=== PATIENT | male | born 1985 | race Caucasian/White ===

== ENCOUNTER 2017-08-23 10:09 | Inpatient (IN) | payer MEDICAID, OTHER ==
[~2017-08-23] VITALS: Ht 172.7 cm; Wt 72.3 kg
[2017-08-23] MEDS ORDERED: VANCOMYCIN 1 GM (PMX) 250 ML IVPB STA (11:23)
[2017-08-23] MEDS ORDERED: ACETAMINOPHEN 325 MG TAB PO STA (11:23)
[2017-08-23] MEDS ORDERED: PIPER-TAZO 3.375 GM IV (PMX) 50 ML IVPB STA (11:23)
[2017-08-23] MEDS ORDERED: SODIUM CHLORIDE 0.9% 1L BAG IV* STA (11:23)
[2017-08-23] MEDS ORDERED: CLINDAMYCIN 900 MG/D5W (PMX) 50 ML IVPB SCH (11:30)
[2017-08-23 12:00] LABS: BASOPHIL # 0.1 10^3/ul (0.0-0.1); BASOPHILS % 0.4 % (0.0-2.0); EOSINOPHILS # 0.1 10^3/ul (0.0-0.5); EOSINOPHILS % 0.5 % (0.0-7.0); HEMATOCRIT 49.1 % (42.0-52.0); HEMOGLOBIN 17.2 g/dl (14.0-18.0); LYMPHOCYTES % 5.4 % (15.0-51.0); MEAN CORPUSCULAR HEMOGLOBIN 32.2 pg (29.0-33.0); MEAN CORPUSCULAR VOLUME 91.9 fl (82.0-101.0); MEAN PLATELET VOLUME 9.8 fl (7.4-10.4); MONOCYTE # 1.2 10^3/ul (0.3-0.9); MONOCYTES % 6.5 % (0.0-11.0); NEUTROPHIL # 16.2 10^3/ul (1.6-7.5); NEUTROPHILS % 86.8 % (39.0-77.0); PLATELET COUNT 227 10^3/UL (140-415); RED BLOOD COUNT 5.34 10^6/ul (4.70-6.10); RED CELL DISTRIBUTION WIDTH 12.5 % (11.5-14.5); WHITE BLOOD COUNT 18.6 10^3/ul (4.8-10.8)
[2017-08-23] MEDS ORDERED: PIPER-TAZO 3.375 GM IV (PMX) 100 ML IVPB ONE (12:00)
[2017-08-23] MEDS ORDERED: morphine 4 MG/ML VIAL IV STA (12:01)
[2017-08-23] MEDS ORDERED: ONDANSETRON 4 MG INJ IV STA (12:01)
[2017-08-23 12:15] LABS: INR 1.03; PROTIME 13.5 Sec (12.2-14.2); PT RATIO 1.1
[2017-08-23 12:16] LABS: PARTIAL THROMBOPLASTIN TIME 31.6 Sec (25.0-35.0)
[2017-08-23 12:19] LABS: ALANINE AMINOTRANSFERASE 31 IU/L (13-69); ALBUMIN 4.6 g/dl (3.3-4.9); ALBUMIN/GLOBULIN RATIO 1.27; ALKALINE PHOSPHATASE 110 IU/L (42-121); ANION GAP 19 (8-16); ASPARTATE AMINO TRANSFERASE 25 IU/L (15-46); BLOOD UREA NITROGEN 19 mg/dl (7-20); CALCIUM 9.4 mg/dl (8.4-10.2); CARBON DIOXIDE 23 mmol/L (21-31); CHLORIDE 100 mmol/L (97-110); CREATININE 1.19 mg/dl (0.61-1.24); GLUCOSE 101 mg/dl (70-220); SODIUM 138 mmol/L (135-144); TOTAL PROTEIN 8.2 g/dl (6.1-8.1)
[2017-08-23 12:32] LABS: TROPONIN-I < 0.012 ng/ml (0.00-0.12)
--- NOTE | 2017-08-23 12:32 | RADRPT ---
PROCEDURE: XR Chest. CLINICAL INDICATION: Possible sepsis. TECHNIQUE: Single frontal chest x-ray. COMPARISON: None available. FINDINGS: The cardiomediastinal silhouette is unremarkable. No pneumothorax, pleural effusion or consolidation is seen. No acute osseous abnormality is noted. IMPRESSION: 1. No acute cardiopulmonary abnormality. RPTAT: HH .Hilaria Landis MD, Date Time Electronically viewed and signed by .Hilaria Landis MD, on 08/23/2017 12:32 .N/
--- NOTE | 2017-08-23 12:40 | RADRPT ---
PROCEDURE: XR Knee. CLINICAL INDICATION: Left knee pain. TECHNIQUE: Three views of the left knee are available for review. COMPARISON: None available FINDINGS: No acute fracture or dislocation is seen. No radiopaque foreign body is identified. Alignment is a natomic. No significant soft tissue swelling is noted. Small suprapatellar effusion is noted. IMPRESSION: 1. No acute fracture or dislocation. 2. Small suprapatellar effusion. RPTAT: HH .Hilaria Landis MD, Date Time Electronically viewed and signed by .Hilaria Landis MD, on 08/23/2017 12:40 .N/
[2017-08-23] MEDS ORDERED: ONDANSETRON 4 MG INJ IV PRN ×2 (13:00→15:00)
[2017-08-23] MEDS ORDERED: ACETAMINOPHEN 325 MG TAB PO PRN (13:00)
--- NOTE | 2017-08-23 13:02 | CONS ---
Date/Time of Note Date/Time of Note DATE: 08/23/17 TIME: 13:01 Assessment/Plan Assessment/Plan Additional Assessment/Plan [facility] INPATIENT CONSULTATION NOTE DATE OF SERVICE: 08/23/2017 PLACE OF SERVICE: [facility], emergency department ASSESSMENT AND PLAN: A very-pleasant and otherwise seemingly healthy 32-year- old gentleman presenting with moderate to severe cellulitis around his left knee. Patient's clinical picture as well as his LRINEC score of 5 indicates severe cellulitis and low probability for necrotizing fasciitis. His ultrasound shows soft tissue stranding and no obvious abscess (final report pending). We are awaiting his CT scan of the left knee area. I recommended hospitalization as well as aggressive medical management, and will make further decisions regarding operative assessment of the lesion after CT scan is done and after a few hours of above management. Explained to the patient in detail and answered all questions. Patient (no family present in the room) appeared to understand and agreed with plans. With above assessment, I've recommended the followin. CT scan of left knee 2. Admitted to the hospital 3. Agree with broad-spectrum antimicrobials 4. Careful monitoring of vital signs and I's and O's (potentially would need telemetry or ICU depending on clinical course of the next few hours) 5. Every 6 hours lactic acid checks for 4 checks 6. Demarcation of the cellulitis with date and time and repeat every shift for the next 2 days Thank you very much for having me involved in the care of this very pleasant patient and wonderful family. If you have any questions, please feel free to contact me at [phone]. Nature of presenting problem: High severity Please note that, given the multiple number of diagnoses or management options, the moderate amount and/or complexity of data needed to be reviewed, and I risk of complications and/or morbidity or mortality, this qualifies as high complexity type of decision-making. Disclaimers: 1. Inadvertent spelling and grammatical errors are likely due to electronic health record (EHR)/dictation software used and do not reflect on the quality of delivered patient care. 2. The electronic timestamp recorded on this note does not necessarily reflect the actual date and time of the visit or the service. 3. Portions of this note may have been created through electronic templates and computer algorithms that might bring in information either from the system or from other physicians and providers. Please note that such information may or may not contain errors, the occurrence of which are outside of my control. In general (but not always) this happens either in the beginning or at the end of the note. The portion of the note that I have created are generally done in 1 continuous block of text, flanked at the beginning and at the end by " ", and entered into one field in the EHR. 4. There may be other unanticipated errors in the note that are outside of my control. I can only attest to the portions of the note that I have created. Updated clinical summary: A very-pleasant and otherwise seemingly healthy 32-year-old gentleman presenting with moderate to severe cellulitis around his left knee. Comorbidities: 1. Cocaine use in the past. Quit several years ago 2. Status post laparoscopic appendectomy [facility] [address]. Alcaraz CONSULTATION REQUESTED BY: Kalyan Rowe MD Dear Dr. Rowe, Thank you very much for the opportunity to participate in the care of this very pleasant gentleman and his wonderful family. HISTORY OF PRESENT ILLNESS: The patient is a very pleasant otherwise fairly healthy 32-year-old gentleman who presented to the emergency department at [facility] on 08/23/2017 with 3-4 day history of aggressively worsening redness and pain around his left knee. 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 His symptoms have worsened to a point where he started having shakes and chills and came into the hospital for evaluation. His initial workup demonstrated elevated white blood cell count of 18 and overall LRINEC score of 5. I promptly evaluated him in the emergency department. I found him to be in mild distress and having shakes and write orders. He had some erythema of the skin over his chest region. He reported not noticing the erythema on his chest prior to coming to the hospital. He reported no numbness of his left toes and he was able to move his toes and leg with very minimal discomfort of the skin overlying the left knee region. The joint itself did not seem to be bothering him. He did not complain of any shortness of breath or chest pain and no nausea or vomiting, changes in appetite , blood in the stool or urine or other major complaints. No prior similar issues in the past. No issues with autoimmune disease or immunosuppressant use. His cocaine use was several years ago and the has not use any illicit drugs since. ALLERGIES: NO KNOWN DRUG ALLERGIES MEDICATIONS Documented in the electronic records and reviewed by me. Please see the electronic records for details, as well as details for inpatient medications which were also reviewed by me. SOCIAL HISTORY: The patient lives with family.-Tob; occasional binge drinking over the weekend;-IVDU (above-mentioned cocaine use in the past) FAMILY HISTORY: There are no significant medical, surgical or oncologic issues in the family as reported by the patient or reflected in the chart. REVIEW OF SYSTEMS: Other than mentioned above, there were no other pertinent positives or pertinent negatives in an otherwise complete 14 point review of systems. PHYSICAL EXAMINATION GENERAL: The patient appears to be a very pleasant gentleman of descent lying in bed, appearing stated age, and otherwise in no acute distress. BMI: 21.8 VITAL SIGNS: AVSS (please also see auto important data if available as well as the electronic records) HEENT: Normocephalic and atraumatic. Extraocular muscles and hearing are grossly intact bilaterally and symmetrically. Sclerae are nonicteric. Oral cavity is clear; oral mucosa appear to be pink and moist. Dentition: fair. NECK: Supple. There is no lymphadenopathy or JVD. There is no submental, submandibular or supraclavicular lymphadenopathy. CHEST: Rises symmetrically with each breath; patient is breathing comfortably. There are no audible wheezes, rales or rhonchi on the gross exam. HEART: Pulse is regular and palpable on the right wrist. Capillary refill is normal. Carotid pulses are palpable bilaterally and symmetrically in the neck. EXTREMITIES: Skin overlying the left knee area is significantly erythematous and there is calor to touch. Small 3-4 cm in diameter area of skin right below the patella region is slightly more demarcated and pale in appearance (very minimally) compared to the rest of the skin. The skin below the knee is normal. The skin overlying the thigh regions is slightly hyperemic with almost a rash to it which appears to be slightly blanching to touch and petechial in nature without any raised nature to it. Calf compartments as well as the thigh compartments are all soft and nontender. Patient sensation in the lower extremity is normal. Otherwise normal exam and lower extremities contain no pitting edema around the ankles bilaterally and symmetrically. ABDOMEN: Abdomen is soft, nontender and nondistended. No evidence of ascites, organomegaly, caput medusae, engorged subcutaneous veins, or other abnormalities. There are no peritoneal signs or guarding. SKIN: Appears to be pink and feels warm to touch. NEUROLOGIC: Awake, alert, and follows commands appropriately. LABORATORY DATA: See below IMAGING: See electronic chart. Please note that I've personally reviewed all pertinent available images and I agree in general with their overall reported findings. Consultation Date/Type/Reason Admit Date/Time Social History Smoking Status: Current some day smoker Exam/Review of Systems Vital Signs Vitals Vital Signs Date Time Temp Pulse Resp B/P Pulse Ox O2 Delivery O2 Flow Rate FiO2 08/23/17 12:06 Nasal Cannula 08/23/17 12:06 100.3 108 30 117/80 100 Results Result Diagram: 08/23/17 1140 08/23/17 1140 Results 24 hrs Laboratory Tests Test 08/23/17 11:40 08/23/17 11:41 White Blood Count 18.6 H Red Blood Count 5.34 Hemoglobin 17.2 Hematocrit 49.1 Mean Corpuscular Volume 91.9 Mean Corpuscular Hemoglobin 32.2 Mean Corpuscular Hemoglobin Concent 35.0 Red Cell Distribution Width 12.5 Platelet Count 227 Mean Platelet Volume 9.8 Neutrophils % 86.8 H Lymphocytes % 5.4 L Monocytes % 6.5 Eosinophils % 0.5 Basophils % 0.4 Nucleated Red Blood Cells % 0.0 Neutrophils # 16.2 H Lymphocytes # 1.0 Monocytes # 1.2 H Eosinophils # 0.1 Basophils # 0.1 Nucleated Red Blood Cells # 0.0 Prothrombin Time 13.5 Prothrombin Time Ratio 1.1 INR International Normalized Ratio 1.03 Activated Partial Thromboplast Time 31.6 Sodium Level 138 Potassium Level 4.0 Chloride Level 100 Carbon Dioxide Level 23 Anion Gap 19 H Blood Urea Nitrogen 19 Creatinine 1.19 Glucose Level 101 Lactic Acid Level 3.4 *H Calcium Level 9.4 Total Bilirubin 3.0 H Direct Bilirubin 0.00 Indirect Bilirubin 3.0 H Aspartate Amino Transf (AST/SGOT) 25 Alanine Aminotransferase (ALT/SGPT) 31 Alkaline Phosphatase 110 Troponin I < 0.012 Total Protein 8.2 H Albumin 4.6 Globulin 3.60 H Albumin/Globulin Ratio 1.27 C-Reactive Protein 22.1 H LIANG FRANCIS M.D. Aug 23, 2017 13:02
--- NOTE | 2017-08-23 13:03 | RADRPT ---
PROCEDURE: CT of the left knee CLINICAL INDICATION: Left knee pain and swelling TECHNIQUE: Axial images through the left knee without IV contrast. Coronal and sagittal reformat s. Images were interpreted at an independent PACS workstation. CTDI 3.23 mGy DLP 13 2.55 mGy-cm One or more of the following dose reduction techniques were used: Automated exposure control Adjustment of the mA and / or kV according to patient size Use of iterative reconstruction technique. COMPARISON: Radiographs of the left knee performed same day FINDINGS: There is no CT evidence of acute fracture. Joint spaces are preserved. Alignment appears normal. Bon e mineralization is normal. There is moderate subcutaneous soft tissue swelling anteriorly over the patella extending medially a nd laterally throughout the knee. There is no discrete drainable fluid collection. There is no soft tissue gas. The extensor mechanism is intact. Limited intra-articular evaluation is grossly unremarkable on CT. There is physiologic joint fluid. IMPRESSION: 1. Moderate nonspecific anterior subcutaneous soft tissue swelling, query cellulitis. 2. No CT evidence of acute fracture. 3. Physiologic joint fluid. RPTAT: UU .Edd Dominguez MD, MD Date Time Electronically viewed and signed by .Edd Dominguez MD, MD on 08/23/2017 13:03 ./
--- NOTE | 2017-08-23 13:17 | RADRPT ---
PROCEDURE: Left knee ultrasound CLINICAL INDICATION: Cellulitis. Evaluate for abscess. TECHNIQUE: Real time mayo-scale ultrasound imaging of the left knee. COMPARISON: None. FINDINGS: No large discrete fluid collection is identified along the medial aspect of the left knee. Diffuse s ubcutaneous soft tissue edema/cellulitis is noted and there are several areas of more focal edema. E raymond abscess is considered unlikely, however, cannot be entirely excluded. Correlation with CT or MR I is recommended for further evaluation. IMPRESSION: Diffuse subcutaneous edema/cellulitis throughout the visualized portion of the left knee medially. Q uestionable areas of focal edema versus early abscess are suboptimally evaluated but cannot be entir venkatesh excluded. Contrast-enhanced MRI or CT recommended for further evaluation. RPTAT:AAJJ Physician Meche Date Time Electronically viewed and signed by Physician Meche on 08/23/2017 13:17 PHOEBE/
--- NOTE | 2017-08-23 13:31 | ERD ---
ER Documentation Chief Complaint Chief Complaint LEFT KNEE PAIN, REDNESS. SWELLING FOR A WEEK HPI Patient is a 32-year-old male with no medical problems who presents with left- sided knee swelling. The symptoms started 3 days ago. 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 There is redness to the knee and up the left leg. He also has redness to his abdomen and chest. He is complaining of fevers and chills. The knee is very painful. He has had no treatment as of yet. This has worsened over the past 3 days. ROS All systems reviewed and are negative except as per history of present illness. Allergies Allergies: Coded Allergies: No Known Allergy (Unverified , 11/03/11) PMhx/Soc Medical and Surgical Hx: pt denies Medical Hx History of Surgery: Yes (APPENDECTOMY) Anesthesia Reaction: No Hx Neurological Disorder: No Hx Respiratory Disorders: No Hx Cardiac Disorders: No Hx Psychiatric Problems: No Hx Miscellaneous Medical Probl: No Hx Alcohol Use: Yes (FROMER ETOH USE) Hx Substance Use: Yes (FORMER METH, HEROINE) Hx Tobacco Use: Yes Smoking Status: Current some day smoker FmHx Family History: No diabetes Physical Exam Vitals Vital Signs Date Time Temp Pulse Resp B/P Pulse Ox O2 Delivery O2 Flow Rate FiO2 08/23/17 12:06 Nasal Cannula 08/23/17 12:06 100.3 108 30 117/80 100 Room Air 08/23/17 10:11 100.6 115 22 107/69 97 Physical Exam Const: Moderate distress with Reiger's Head: Atraumatic Eyes: Normal Conjunctiva ENT: Normal External Ears, Nose and Mouth. Neck: Full range of motion..~ No meningismus. Resp: Clear to auscultation bilaterally Cardio: Tachycardic rate without murmur Abd: Soft, non tender, non distended. Normal bowel sounds Skin: Significant erythema to the left knee radiating up the left leg and into the abdomen, there is swelling and significant tenderness to palpation, there is no obvious abscess at this time, there is discoloration of the anterior portion of the patella approximately 2 x 2 cm Back: No midline or flank tenderness Ext: No cyanosis, or edema Neur: Awake and alert Psych: Normal Mood and Affect Result Diagram: 08/23/17 1140 08/23/17 1140 Results 24 hrs Laboratory Tests Test 08/23/17 11:40 08/23/17 11:41 White Blood Count 18.610^3/ul Red Blood Count 5.3410^6/ul Hemoglobin 17.2g/dl Hematocrit 49.1% Mean Corpuscular Volume 91.9fl Mean Corpuscular Hemoglobin 32.2pg Mean Corpuscular Hemoglobin Concent 35.0g/dl Red Cell Distribution Width 12.5% Platelet Count 13211^3/UL Mean Platelet Volume 9.8fl Neutrophils % 86.8% Lymphocytes % 5.4% Monocytes % 6.5% Eosinophils % 0.5% Basophils % 0.4% Nucleated Red Blood Cells % 0.0/100WBC Neutrophils # 16.210^3/ul Lymphocytes # 1.010^3/ul Monocytes # 1.210^3/ul Eosinophils # 0.110^3/ul Basophils # 0.110^3/ul Nucleated Red Blood Cells # 0.010^3/ul Prothrombin Time 13.5Sec Prothrombin Time Ratio 1.1 INR International Normalized Ratio 1.03 Activated Partial Thromboplast Time 31.6Sec Sodium Level 138mmol/L Potassium Level 4.0mmol/L Chloride Level 100mmol/L Carbon Dioxide Level 23mmol/L Anion Gap 19 Blood Urea Nitrogen 19mg/dl Creatinine 1.19mg/dl Glucose Level 101mg/dl Lactic Acid Level 3.4mmol/L Calcium Level 9.4mg/dl Total Bilirubin 3.0mg/dl Direct Bilirubin 0.00mg/dl Indirect Bilirubin 3.0mg/dl Aspartate Amino Transf (AST/SGOT) 25IU/L Alanine Aminotransferase (ALT/SGPT) 31IU/L Alkaline Phosphatase 110IU/L Troponin I < 0.012ng/ml Total Protein 8.2g/dl Albumin 4.6g/dl Globulin 3.60g/dl Albumin/Globulin Ratio 1.27 C-Reactive Protein 22.1mg/dl Current Medications Medications (Trade) Dose Ordered Sig/Quan Route PRN Reason Start Time Stop Time Status Last Admin Dose Admin Sodium Chloride (NS) 2,180 ml BOLUS OVER 2 HOURS STAT IV* 08/23/17 11:23 08/23/17 11:24 DC 08/23/17 11:58 Acetaminophen 650 mg 650 mg ONCE STAT PO 08/23/17 11:23 08/23/17 11:24 DC 08/23/17 11:58 Vancomycin HCl 250 ml @ 125 mls/hr ONCE STAT IVPB 08/23/17 11:23 08/23/17 13:22 DC Piperacillin Sod/ Tazobactam Sod 50 ml @ 100 mls/hr ONCE STAT IVPB 08/23/17 11:23 08/23/17 11:42 DC Clindamycin HCl/ Dextrose 50 ml @ 50 mls/hr ONCE IVPB 08/23/17 11:30 08/23/17 12:29 DC 08/23/17 12:04 Piperacillin Sod/ Tazobactam Sod (Zosyn 3.375gm/ 100 ml (Pmx)) 100 ml @ 200 mls/hr ONCE ONCE IVPB 08/23/17 12:00 08/23/17 12:29 DC 08/23/17 13:01 Morphine Sulfate (morphine) 4 mg ONCE STAT IV 08/23/17 12:01 08/23/17 12:02 DC 08/23/17 12:20 Ondansetron HCl (Zofran Inj) 4 mg ONCE STAT IV 08/23/17 12:01 08/23/17 12:02 DC 08/23/17 12:20 Ondansetron HCl (Zofran Inj) 4 mg ER BRIDGE PRN IV NAUSEA AND/OR VOMITING 08/23/17 13:00 08/24/17 12:59 Acetaminophen (Tylenol Tab) 650 mg ER BRIDGE PRN PO MILD PAIN/FEVER 08/23/17 13:00 08/24/17 12:59 Procedures/MDM EKG read by me: Rate/Rhythm: Sinus tachycardia Intervals: Normal Impression: Sinus tachycardia without ischemia PROCEDURE: CT of the left knee CLINICAL INDICATION: Left knee pain and swelling TECHNIQUE: Axial images through the left knee without IV contrast. Coronal and sagittal reformats. Images were interpreted at an independent PACS workstation. CTDI 3.23 mGy DLP 13 2.55 mGy-cm One or more of the following dose reduction techniques were used: Automated exposure control Adjustment of the mA and / or kV according to patient size Use of iterative reconstruction technique. COMPARISON: Radiographs of the left knee performed same day FINDINGS: There is no CT evidence of acute fracture. Joint spaces are preserved. Alignment appears normal. Bone mineralization is normal. There is moderate subcutaneous soft tissue swelling anteriorly over the patella extending medially and laterally throughout the knee. There is no discrete drainable fluid collection. There is no soft tissue gas. The extensor mechanism is intact. Limited intra-articular evaluation is grossly unremarkable on CT. There is physiologic joint fluid. IMPRESSION: 1. Moderate nonspecific anterior subcutaneous soft tissue swelling, query cellulitis. 2. No CT evidence of acute fracture. 3. Physiologic joint fluid. RPTAT: UU .Edd Dominguez MD, MD Date Time Electronically viewed and signed by .Edd Dominguez MD, on 08/23/2017 13: 03 PROCEDURE: Left knee ultrasound CLINICAL INDICATION: Cellulitis. Evaluate for abscess. TECHNIQUE: Real time mayo-scale ultrasound imaging of the left knee. COMPARISON: None. FINDINGS: No large discrete fluid collection is identified along the medial aspect of the left knee. Diffuse subcutaneous soft tissue edema/cellulitis is noted and there are several areas of more focal edema. Early abscess is considered unlikely, however, cannot be entirely excluded. Correlation with CT or MRI is recommended for further evaluation. IMPRESSION: Diffuse subcutaneous edema/cellulitis throughout the visualized portion of the left knee medially. Questionable areas of focal edema versus early abscess are suboptimally evaluated but cannot be entirely excluded. Contrast-enhanced MRI or CT recommended for further evaluation. RPTAT:AAJJ Physician Meche Date Time Electronically viewed and signed by Physician Meche on 08/23/2017 13:17 Left knee x-ray and chest x-ray negative per radiology. Admit MDM: Patient's infectious symptoms have not stabilized and the patient is at risk of rapid decompensation. The patient will be admitted for careful hydration, antibiotic therapy, and infectious source control. Severe Sepsis criteria: Infectious source: Cellulitis End organ damage indicated by: Lactate greater than 2 Sepsis Management: Time of recognition of sepsis: Upon arrival Within 3 hours of recognition: Blood cultures x 2 before broad-spectrum antibiotics: Yes 30 ml/kg NS bolus Completed Initial lactate 3.4 Repeat lactate pending Time of recognition of septic shock: No septic shock Septic Shock Assessment: Any lactic acid > 4.0 No Persistent hypotension (SBP < 90 or 40 mmHg drop, MAP < 65) despite 30 mL/kg IV fluid bolus No Volume Re-assessment for Septic Shock (post 30 ml/kg bolus): No septic shock at this time Persistent Hypotension Treatment: Comfort care No Central line Not Required Vasopressor started Not required I considered further perfusion assessment with CVP measurement, SCVO2, bedside ultrasound volume assessment, passive leg raise, trial of further fluid bolus. And proceeded with 30 ml/kg fluid bolus of NSS, broad spectrum antibiotics, and admission. I also spoke with Dr. Lynn from general surgery who came to the bedside to evaluate for possible necrotizing fasciitis. He does not think the patient has necrotizing fasciitis at this time he just thinks it is a bad cellulitis. The patient's LRINEC score is 5. The patient was given vancomycin , Zosyn, and clindamycin for significant soft tissue infection. Accepting Care Team Current data and ongoing care discussed. Admitting Physician: Dr. Dowell from the panel team for admission to a telemetry bed Community Service Officer(s): Dr. Lynn the surgeon on-call Outstanding Data: Culture results and repeat lactic acid Critical Care: Critical care time 35 minutes excluding all billable procedures Emergent fluid management while maintaining close respiratory support. Provision of immediate and broad-spectrum antibiotic therapy. Simultaneous assessment for possible sources in order to direct targeted therapy. Consideration for invasive and chemical support to prevent cardiopulmonary collapse. Departure Diagnosis: Primary Impression: Severe sepsis Additional Impression: Cellulitis Site of cellulitis: extremity Site of cellulitis of extremity: lower extremity Laterality: left Qualified Code: L03.116 - Cellulitis of left lower extremity Condition: Serious BEATRIS HOLLIDAY MD Aug 23, 2017 13:31
[2017-08-23] MEDS ORDERED: MAGNESIUM HYDROXIDE 30ML CUP PO PRN (15:00)
[2017-08-23] MEDS ORDERED: NA PHOSPHATE/BIPHOS 133 ML ENEMA PR PRN (15:00)
[2017-08-23] MEDS ORDERED: hydrALAzine 20 MG INJ IV PRN (15:00)
[2017-08-23] MEDS ORDERED: VANCOMYCIN IV PER PHARMACY XX SCH (15:00)
[2017-08-23] MEDS ORDERED: LORAZEPAM 0.5 MG TAB PO PRN (15:00)
[2017-08-23] MEDS ORDERED: NITROGLYCERIN (SL) 0.4 MG TAB SL PRN (15:00)
[2017-08-23] MEDS ORDERED: ALBUTEROL/IPRATROPIUM (NEB) 3 ML AMP HHN PRN (15:00)
[2017-08-23 15:03] VITALS: TEMP 98.7
[2017-08-23 15:20] VITALS: BP 94/53; PULSE 90; RESP 18
[2017-08-23 15:28] VITALS: PULSE 92
[2017-08-23] MEDS: morphine 2 MG INJ IV PRN ×2 (15:49→20:21)
[2017-08-23 15:59] VITALS: Ht 172.7 cm; Wt 72.3 kg
[2017-08-23 16:00] VITALS: PULSE 96
[2017-08-23 16:10] LABS: INR 1.15; PROTIME 14.7 Sec (12.2-14.2); PT RATIO 1.1
[2017-08-23 16:11] LABS: PARTIAL THROMBOPLASTIN TIME 36.8 Sec (25.0-35.0)
[2017-08-23] MEDS: SOD CHLORIDE 0.9% 1,000 ML IV SCH (16:13)
[2017-08-23] MEDS ORDERED: VANCOMYCIN 500MG/NS (PMX) 100 ML IVPB SCH (17:00)
[2017-08-23] MEDS: PIPER-TAZO 3.375 GM IV (PMX) 50 ML IVPB SCH (18:00)
--- NOTE | 2017-08-23 18:39 | CONS ---
DATE OF ADMISSION: 08/23/2017 DATE OF CONSULTATION: 08/23/2017 INFECTIOUS DISEASE CONSULTATION REASON FOR CONSULTATION: Antibiotic management. HISTORY OF PRESENT ILLNESS: Nick Cervantes is a 32-year-old male who comes in with left knee pain and redness and is being seen for antibiotic management. Past problems include: 1. Status post appendectomy. 2. Former ETOH abuser. 3. Former methamphetamine and heroin user. 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 There is redness to the knee and up the left leg. There is redness to his abdomen and ch est. He complains of fever and chills. The knee is painful and has worsened over the last 3 days. On admission, his white count was 18.6, H and H 17.2 and 49.1, platelet count 227,000. BUN and cre atinine 19/.19. The patient was started on vancomycin, Zosyn and clindamycin as well for the possi bility of necrotizing fasciitis. The patient was seen by Dr. Liang Francis. He has severe cellulit is but low probability for necrotizing fasciitis. His ultrasound shows soft tissue stranding. No o bvious abscess. We are awaiting CT scan of the left knee. The CT scan of the left knee is pending. He is on broad spectrum antibiotics and essentially will await the results of the pending studies. A lower extremity CT scan was done today and shows moderate nonspecific anterior subcutaneous soft tissue swelling, query cellulitis. No CT evidence of acute fracture. PAST MEDICAL HISTORY: Operations as outlined. FAMILY HISTORY: Noncontributory. SOCIAL HISTORY: As noted, he is an alcohol abuser and methamphetamine and heroin abuser. FAMILY HISTORY: Noncontributory. SOCIAL HISTORY: He does smoke every day, current every day smoker, does not currently drink or abus e drugs. ALLERGIES: NONE TO PENICILLIN, SULFA OR FOODS. MEDICATIONS: Per chart. REVIEW OF SYSTEMS: As per HPI. PHYSICAL EXAMINATION: GENERAL: The patient is in moderate distress. VITAL SIGNS: Temperature 100.6. SKIN: Without generalized rash. EXTREMITIES: He has significant erythema of the left knee radiating up the leg and into the abdomen with swelling and tenderness to palpation. NEUROLOGICAL: No obvious abscess. HEENT: Within normal limits. NECK: Supple. LYMPH NODES: None palpable. CHEST: Decreased breath sounds at the bases. HEART: Tachycardic without murmur or gallop. ABDOMEN: Soft, nontender, without organosplenomegaly or masses. EXTREMITIES: No cyanosis, clubbing or edema. There is swelling and tenderness to palpation a nd discoloration of the anterior portion of the left patella. RECTAL AND GENITAL: Deferred. NEUROLOGIC: No focal neurological abnormalities. LABORATORY DATA: On admission, his white count is 18.6, H and H of 17.2 and 49.1, platelet count 22 7,000. BUN and creatinine 19/1.19 and his random glucose is 101. IMPRESSION AND PLAN: Will await the MRI scan. I do not believe we are dealing with a necrotizing f asciitis. We will follow his lactic acid, continue him on current therapy. He has had blood cultur es x4. Urine cultures and feces cultures pending. I will dictate my findings to the hospitalist. Dictated By: SABRA FREEMAN MD, JD/REBEL Conf#: [id number] DID#: [id number] CC: LIANG FRANCIS MD;*EndCC*
[2017-08-23 19:22] LABS: ADD UMIC NO; UR ASCORBIC ACID NEGATIVE (NEGATIVE); UR BILIRUBIN (Dip) NEGATIVE (NEGATIVE); UR BLOOD (Dip) NEGATIVE (NEGATIVE); UR CLARITY CLEAR (CLEAR); UR COLOR YELLOW (YELLOW); UR GLUCOSE (Dip) NEGATIVE (NEGATIVE); UR KETONES (Dip) TRACE mg/dL (NEGATIVE); UR LEUKOCYTE ESTERASE (Dip) NEGATIVE Leu/ul (NEGATIVE); UR NITRITE (Dip) NEGATIVE (NEGATIVE); UR SPECIFIC GRAVITY (Dip) 1.013 (1.003-1.030); UR TOTAL PROTEIN (Dip) NEGATIVE (NEGATIVE); UR UROBILINOGEN (Dip) 2+ mg/dL (NEGATIVE)
[2017-08-23 20:06] VITALS: PULSE 101
--- NOTE | 2017-08-23 20:09 | HP ---
DATE OF ADMISSION: 08/23/2017 CHIEF COMPLAINT: Left knee redness and pain and swelling. HISTORY OF PRESENT ILLNESS: A 32-year-old male with a past medical history of appendectomy, who has been having complaints of left knee swelling. He says he has also had redness symptoms as well, and also had some subjective fevers and chills at home. He had some mild shortness of breath symptoms as well. He took Motrin PM as well as Aspercreme [id number] and Icy Hot, which did not relieve the symptoms, and his symptoms were getting worse over the next 3 days. Denies any pus or drainage or bleeding from the redness site around his knee. He has noticed the redness has spread up to his upper leg now as well. He describes it is very tender to palpation. No diarrhea or constipation. No headaches or dizziness or loss of consciousness. When he came into the ER he was found with signs of severe sepsis secondary to cellulitis. He was seen by general surgery in the ER as well because there was concern for necrotizing fasciitis. However, the CT scan on this admission does not present any findings concerning for this, so he recommended just continuing wound care and antibiotics for now. PAST MEDICAL HISTORY: As stated above. ALLERGIES: NO KNOWN DRUG ALLERGIES. MEDICATIONS: Home medications, none regularly. PAST SURGICAL HISTORY: Appendectomy. SOCIAL HISTORY: Former IV drug abuse. He used cocaine last time 2 years ago. He smokes cigarettes socially. Denies any alcohol abuse. FAMILY HISTORY: Noncontributory. PHYSICAL EXAMINATION: VITAL SIGNS: Today, T-max 100.6, pulse 108 to 115, respirations 20 to 30, blood pressure 107 to 117 systolic over 69 to 80 diastolic, sating at 97 percent room air. GENERAL: Patient is lying in bed, in mild distress, but otherwise alert and awake. HEENT: Pupils equal, round, reactive to light. Extraocular muscles intact. NECK: Supple. No thyromegaly. LUNGS: Clear to auscultation bilaterally. CARDIOVASCULAR: Slightly tachycardic heart rate. No rubs or gallops. ABDOMEN: Soft, nontender, nondistended. Normal bowel sounds. No rebound or guarding. MUSCULOSKELETAL: On his left lower extremity there is significant erythema in the left knee radiating up to the left leg and into the abdomen, and it is also tender to palpation more around the left knee and also warm to touch in these areas. There is no sign of any abscess. There is a small discoloration in the anterior portion of the patella, but no pus or bleeding coming from this area. Otherwise, no lower extremity edema bilaterally. NEUROLOGIC: No focal deficits. LABORATORY DATA: WBC 18.6, the rest of the CBC is normal. His lactic acid is 3.4. His basic metabolic panel is normal. His total bili was 3.0, but direct was 0.0, indirect was 3.0. Rest of his LFTs are normal. Troponin is negative times 1. CRP is elevated at 22.1. A chest x-ray that was essentially negative. He had a knee x-ray of the left knee that showed no fractures or dislocations. There is small suprapatellar effusion, however. A left knee ultrasound that shows diffuse subcutaneous edema, cellulitis throughout the visualized portion of the left knee medially. Questionable areas of focal edema versus early abscess or suboptimally evaluated, but cannot be excluded, so a CT scan of the left knee was performed that showed moderate nonspecific anterior subcutaneous soft tissue swelling, likely cellulitis, but no evidence of any fractures, and there is physiologic joint fluid. Apparently, no signs of any abscess. Coags essentially normal. ASSESSMENT AND PLAN: A 32-year-old male coming in with left knee redness and cellulitis, and also severe sepsis with some mild fever, leukocytosis like acidosis. 1. Severe sepsis, again likely secondary to left knee cellulitis. Appears to have spread up to his left upper leg and abdomen area. Will admit the patient, put him on broad spectrum antibiotics, check TSH, A1c, lipid panel, infectious disease consult. Given his severe sepsis, will trend his lactic acid and put him on aggressive IV fluid hydration as well. Pain control medications as well. Consider PT consult. Check coags, trend lactic acid. 2. History of prior appendectomy. Monitor for now. Dictated By: Trevor Pablo MD /quentin/ruby /Document#: [id number]
[2017-08-23 20:25] VITALS: BP 104/67; RESP 18
[2017-08-23] MEDS: HEPARIN 5,000 UNIT/0.5 ML VIAL SC SCH (20:45)
[2017-08-23] MEDS: ACETAMINOPHEN 325 MG TAB PO PRN (22:21)
[2017-08-23] MEDS ORDERED: VANCOMYCIN 1 GM in NS 250 ML IVPB SCH (23:00)
[2017-08-24] VITALS (13 sets, daily range): BP systolic 93–106; BP diastolic 52–65; PULSE 85–112; RESP 16–19
[2017-08-24] MEDS: PIPER-TAZO 3.375 GM IV (PMX) 50 ML IVPB SCH ×2 (00:09→05:58)
[2017-08-24] MEDS: SOD CHLORIDE 0.9% 1,000 ML IV SCH ×3 (00:10→14:05)
[2017-08-24] MEDS: morphine 2 MG INJ IV PRN ×5 (00:23→20:19)
[2017-08-24] MEDS ORDERED: SOD CHLORIDE 0.9% 1,000 ML IV ONE (02:00)
[2017-08-24] MEDS: DIPHENHYDRAMINE 50 MG INJ IV PRN ×2 (02:33→10:04)
[2017-08-24] MEDS: VANCOMYCIN 1 GM in NS 250 ML IVPB SCH ×2 (03:05→15:09)
[2017-08-24 06:20] LABS: BASOPHIL # 0.1 10^3/ul (0.0-0.1); BASOPHILS % 0.4 % (0.0-2.0); EOSINOPHILS # 0.5 10^3/ul (0.0-0.5); EOSINOPHILS % 3.3 % (0.0-7.0); HEMATOCRIT 40.4 % (42.0-52.0); HEMOGLOBIN 14.1 g/dl (14.0-18.0); LYMPHOCYTES # 1.1 10^3/ul (0.8-2.9); LYMPHOCYTES % 7.7 % (15.0-51.0); MEAN CORPUSCULAR HEMOGLOBIN 32.3 pg (29.0-33.0); MEAN CORPUSCULAR HGB CONC 34.9 g/dl (32.0-37.0); MEAN CORPUSCULAR VOLUME 92.7 fl (82.0-101.0); MEAN PLATELET VOLUME 9.7 fl (7.4-10.4); MONOCYTES % 6.8 % (0.0-11.0); NEUTROPHILS % 81.3 % (39.0-77.0); PLATELET COUNT 224 10^3/UL (140-415); RED BLOOD COUNT 4.36 10^6/ul (4.70-6.10); RED CELL DISTRIBUTION WIDTH 12.7 % (11.5-14.5); WHITE BLOOD COUNT 14.7 10^3/ul (4.8-10.8)
[2017-08-24 06:43] LABS: CALCIUM 7.8 mg/dl (8.4-10.2); CREATININE 0.95 mg/dl (0.61-1.24); MAGNESIUM 2.1 mg/dl (1.7-2.5); PHOSPHORUS 3.1 mg/dl (2.5-4.9); POTASSIUM 3.7 mmol/L (3.5-5.1)
[2017-08-24] MEDS: HEPARIN 5,000 UNIT/0.5 ML VIAL SC SCH ×2 (08:26→21:18)
[2017-08-24] MEDS: HYDROCODONE/APAP (5/325) TAB PO PRN ×2 (08:27→16:58)
[2017-08-24 08:50] LABS: CHOL/HDL RATIO 5.6 RATIO
[2017-08-24] MEDS ORDERED: INFLUENZA VIRUS VACCINE 0.5 ML SYG IM* ONE (09:00)
[2017-08-24 09:21] LABS: THYROID STIMULATING HORMONE 1.64 MIU/L (0.465-4.680)
--- NOTE | 2017-08-24 10:51 | PN ---
Date/Time of Note Date/Time of Note DATE: 08/24/17 TIME: 10:49 Assessment/Plan VTE Prophylaxis VTE Prophylaxis Intervention: heparin Lines/Catheters IV [facility] Peripheral IV Urinary Cath still in place: No Assessment/Plan Chief Complaint/Hosp Course ASSESSMENT AND PLAN: A 32-year-old male coming in with left knee redness and cellulitis, and also severe sepsis with some mild fever, leukocytosis like acidosis. 1. Severe sepsis - again likely secondary to left knee cellulitis. Appears to have spread up to his left upper leg and abdomen area. Slowly improving -Continue broad spectrum antibiotics, check TSH, A1c, lipid panel, -Follow-up recommendations from infectious disease consult. - Given his severe sepsis, will trend his lactic acid and put him on aggressive IV fluid hydration as well -it is trending down now. Pain control medications as well. Consider PT consult. 2. History of prior appendectomy. Monitor for now. Problems: Subjective 24 Hr Interval Summary Free Text/Dictation patient had some mild itching symptoms after Zosyn given yesterday, relieved with Benadryl. Otherwise no acute events overnight. Exam/Review of Systems Vital Signs Vitals Vital Signs Date Time Temp Pulse Resp B/P Pulse Ox O2 Delivery O2 Flow Rate FiO2 08/24/17 08:32 Nasal Cannula 1.0 08/24/17 08:28 98.7 94 16 102/65 98 Intake and Output 08/23/17 08/23/17 08/24/17 15:00 23:00 07:00 Intake Total 320 ml 1700 ml Output Total 1800 ml Balance 320 ml -100 ml Exam GENERAL: Patient is lying in bed, alert and awake. HEENT: Pupils equal, round, reactive to light. Extraocular muscles intact. NECK: Supple. No thyromegaly. LUNGS: Clear to auscultation bilaterally. CARDIOVASCULAR: Slightly tachycardic heart rate. No rubs or gallops. ABDOMEN: Soft, nontender, nondistended. Normal bowel sounds. No rebound or guarding. MUSCULOSKELETAL: On his left lower extremity there is significant erythema in the left knee radiating up to the left leg and into the abdomen, and it is also tender to palpation more around the left knee and also warm to touch in these areas. There is no sign of any abscess. There is a small discoloration in the anterior portion of the patella, but no pus or bleeding coming from this area. Otherwise, no lower extremity edema bilaterally. NEUROLOGIC: No focal deficits. Results Result Diagram: 08/24/17 0555 08/24/17 0555 Results 24 hrs Laboratory Tests Test 08/23/17 11:40 08/23/17 11:41 08/23/17 14:30 08/23/17 15:40 White Blood Count 18.6 H Red Blood Count 5.34 Hemoglobin 17.2 Hematocrit 49.1 Mean Corpuscular Volume 91.9 Mean Corpuscular Hemoglobin 32.2 Mean Corpuscular Hemoglobin Concent 35.0 Red Cell Distribution Width 12.5 Platelet Count 227 Mean Platelet Volume 9.8 Neutrophils % 86.8 H Lymphocytes % 5.4 L Monocytes % 6.5 Eosinophils % 0.5 Basophils % 0.4 Nucleated Red Blood Cells % 0.0 Neutrophils # 16.2 H Lymphocytes # 1.0 Monocytes # 1.2 H Eosinophils # 0.1 Basophils # 0.1 Nucleated Red Blood Cells # 0.0 Prothrombin Time 13.5 14.7 H Prothrombin Time Ratio 1.1 1.1 INR International Normalized Ratio 1.03 1.15 Activated Partial Thromboplast Time 31.6 36.8 H Sodium Level 138 Potassium Level 4.0 Chloride Level 100 Carbon Dioxide Level 23 Anion Gap 19 H Blood Urea Nitrogen 19 Creatinine 1.19 Glucose Level 101 Lactic Acid Level 3.4 *H 1.0 Calcium Level 9.4 Total Bilirubin 3.0 H Direct Bilirubin 0.00 Indirect Bilirubin 3.0 H Aspartate Amino Transf (AST/SGOT) 25 Alanine Aminotransferase (ALT/SGPT) 31 Alkaline Phosphatase 110 Troponin I < 0.012 Total Protein 8.2 H Albumin 4.6 Globulin 3.60 H Albumin/Globulin Ratio 1.27 C-Reactive Protein 22.1 H Urine Color YELLOW Urine Clarity CLEAR Urine pH 7.0 Urine Specific [place] 1.013 Urine Ketones TRACE A Urine Nitrite NEGATIVE Urine Bilirubin NEGATIVE Urine Urobilinogen 2+ H Urine Leukocyte Esterase NEGATIVE Urine Hemoglobin NEGATIVE Urine Glucose NEGATIVE Urine Total Protein NEGATIVE Free Thyroxine 1.59 Test 08/23/17 19:14 08/24/17 00:25 08/24/17 05:54 08/24/17 05:55 Lactic Acid Level 1.2 0.8 0.9 White Blood Count 14.7 #H Red Blood Count 4.36 L Hemoglobin 14.1 Hematocrit 40.4 L Mean Corpuscular Volume 92.7 Mean Corpuscular Hemoglobin 32.3 Mean Corpuscular Hemoglobin Concent 34.9 Red Cell Distribution Width 12.7 Platelet Count 224 Mean Platelet Volume 9.7 Neutrophils % 81.3 H Lymphocytes % 7.7 L Monocytes % 6.8 Eosinophils % 3.3 Basophils % 0.4 Nucleated Red Blood Cells % 0.0 Neutrophils # 12.0 H Lymphocytes # 1.1 Monocytes # 1.0 H Eosinophils # 0.5 Basophils # 0.1 Nucleated Red Blood Cells # 0.0 Sodium Level 142 Potassium Level 3.7 Chloride Level 111 H Carbon Dioxide Level 25 Anion Gap 10 # Blood Urea Nitrogen 9 # Creatinine 0.95 Glucose Level 95 Hemoglobin A1c 4.9 Calcium Level 7.8 L Phosphorus Level 3.1 Magnesium Level 2.1 Triglycerides Level 87 Cholesterol Level 96 L LDL Cholesterol, Calculated 62 HDL Cholesterol 17 L Cholesterol/HDL Ratio 5.6 Thyroid Stimulating Hormone (TSH) 1.640 Medications Medications Current Medications Ondansetron HCl (Zofran Inj) 4 mg Q6H PRN IV NAUSEA AND/OR VOMITING; Start 07/30 at 15:00 Acetaminophen (Tylenol Tab) 650 mg Q6H PRN PO PAIN LEVEL 1-3 OR FEVER Last administered on 08/23/17 22:21; Admin Dose 650 MG; Start 08/23/17 at 15:00 Acetaminophen/ Hydrocodone Bitart ([place] (5/325)) 1 tab Q6H PRN PO MODERATE PAIN LEVEL 4-6 Last administered on 08/24/17 08:27; Admin Dose 1 TAB; Start 08/23/17 at 15:00 Morphine Sulfate (morphine) 2 mg Q4H PRN IV SEVERE PAIN LEVEL 7-10 Last administered on 08/24/17 05:58; Admin Dose 2 MG; Start 08/23/17 at 15:00 Docusate Sodium (Colace) 100 mg Q12H PRN PO CONSTIPATION; Start 08/23/17 at 15 :00 Magnesium Hydroxide (Milk Of Mag) 30 ml DAILY PRN PO CONSTIPATION; Start 08/23 at 15:00 Sodium Biphosphate/ Sodium Phosphate (Fleet Enema) 133 ml DAILY PRN SC CONSTIPATION; Start 08/23/17 at 15:00 Heparin Sodium (Porcine) (Heparin (5000 Units/0.5 ml)) 5,000 unit Q12 SC Last administered on 08/24/17 08:26; Admin Dose 5,000 UNIT; Start 08/23/17 at 21: 00 Lorazepam 0.5 mg 0.5 mg Q6H PRN PO ANXIETY; Start 08/23/17 at 15:00 Sodium Chloride 1,000 ml @ 125 mls/hr Q8H IV Last administered on 08/24/17 00:10; Admin Dose 100 MLS/HR; Start 08/23/17 at 14:33 Piperacillin Sod/ Tazobactam Sod (Zosyn 3.375gm/ 50 ml (Pmx)) 50 ml @ 100 mls/ hr Q6 IVPB Last administered on 08/24/17 05:58; Admin Dose 100 MLS/HR; Start 08/23/17 at 18:00 Vancomycin HCl (Vanco Iv Per Pharmacy) VANCOMYCIN PER PHARMACY NOTE XX ; Start 08/23/17 at 15:00 Hydralazine HCl (Apresoline) 10 mg Q6H PRN IV ELEVATED BLOOD PRESSURE; Start 08/23/17 at 15:00 Clonidine (Catapres) 0.1 mg Q6H PRN PO ELEVATED BLOOD PRESSURE; Start at 15:00 Nitroglycerin 1 tab 1 tab Q5M PRN SL ANGINA; Start 08/23/17 at 15:00 Vancomycin HCl (Vancocin) 250 ml @ 125 mls/hr Q12H IVPB Last administered on 08/24/17 03:05; Admin Dose 125 MLS/HR; Start 08/24/17 at 03:00 Diphenhydramine HCl (Benadryl) 25 mg Q6H PRN IV ITCHING Last administered on 10:04; Admin Dose 25 MG; Start 08/24/17 at 02:00 Miscellaneous Information (*Rx Drug Level Order Reminder*) VANCOMYCIN TROUGH ON ... ONCE ONCE XX ; Start 08/25/17 at 02:00; Stop 08/25/17 at 02:01 DIVINE ELLIOTT Aug 24, 2017 10:51
[2017-08-24] MEDS: CEFEPIME 2GM/50 ML (PMX) 50 ML IVPB SCH ×2 (13:08→21:09)
--- NOTE | 2017-08-24 14:19 | PN ---
Date/Time of Note Date/Time of Note DATE: 08/24/17 TIME: 14:18 Assessment/Plan Lines/Catheters IV Catheter Type (from Nrs): Peripheral IV Strong in Place (from Nrs): No Assessment/Plan Assessment/Plan [facility] Progress Note Date of Service: 08/24/2017 Location of Service: Fifth floor telemetry Today's Assessment & Plan: Overall stable and doing well. Left leg appears to be much improved. No evidence for necrotizing fasciitis. This appears to be severe cellulitis which seems to be responding to antimicrobial management and current cares. No indication for acute surgical intervention. Explained to patient (no family in the room) and answered all questions. Patient appeared to understand and agreed with plans. Previous assessments that applies today: A very-pleasant and otherwise seemingly healthy 32-year-old gentleman presenting with moderate to severe cellulitis around his left knee. Patient's clinical picture as well as his LRINEC score of 5 indicates severe cellulitis and low probability for necrotizing fasciitis. His ultrasound shows soft tissue stranding and no obvious abscess (final report pending). We are awaiting his CT scan of the left knee area. I recommended hospitalization as well as aggressive medical management, and will make further decisions regarding operative assessment of the lesion after CT scan was done. Fortunately, CT did not suggest further evidence for necrotizing fasciitis. With above assessment, I've recommended the followin. Continue current cares 2. Continue monitoring the borders of the erythema on the left knee 3. Increase activity 4. Continue intravenous antimicrobials and converted to orals perhaps in the next [address] Spain's excellent directions. Thank you very much for having me involved in the care of this very pleasant patient and wonderful family. If you have any questions, please feel free to contact me at [phone]. Nature of presenting problem: High severity Please note that, given the multiple number of diagnoses or management options, the moderate amount and/or complexity of data needed to be reviewed, and I risk of complications and/or morbidity or mortality, this qualifies as high complexity type of decision-making. Disclaimers: 1. Inadvertent spelling and grammatical errors are likely due to electronic health record (EHR)/dictation software used and do not reflect on the quality of delivered patient care. 2. The electronic timestamp recorded on this note does not necessarily reflect the actual date and time of the visit or the service. 3. Portions of this note may have been created through electronic templates and computer algorithms that might bring in information either from the system or from other physicians and providers. Please note that such information may or may not contain errors, the occurrence of which are outside of my control. In general (but not always) this happens either in the beginning or at the end of the note. The portion of the note that I have created are generally done in 1 continuous block of text, flanked at the beginning and at the end by " ", and entered into one field in the EHR. 4. There may be other unanticipated errors in the note that are outside of my control. I can only attest to the portions of the note that I have created. Updated clinical summary: A very-pleasant and otherwise seemingly healthy 32-year-old gentleman presenting with moderate to severe cellulitis around his left knee. Comorbidities: 1. Cocaine use in the past. Quit several years ago 2. Status post laparoscopic appendectomy [facility] [address]. Alcaraz Subjective: No major events or complaints; reports feeling much better with no further chills and overall improvement. + bowel activity; minimal activity Objective: Vitals: See below Exam: GENERAL: On exam, the patient was laying in bed and appeared to be comfortable and in no acute distress. ABDOMEN: Soft, nontender and nondistended. There are no peritoneal signs or guarding. EXTREMITIES: Skin overlying the left knee area is significantly less erythematous than yesterday and there is much less calor to touch. Small 3-4 cm in diameter area of skin right below the patella region is slightly more demarcated and pale in appearance (very minimally) compared to the rest of the skin, but not quite as striking as yesterday. The skin below the knee is normal. The skin overlying the thigh regions is less hyperemic than yesterday with almost complete resolution of the rash from yesterday. Calf compartments as well as the thigh compartments are all soft and nontender. Patient sensation in the lower extremity is normal. Otherwise normal exam and lower extremities contain no pitting edema around the ankles bilaterally and symmetrically. SKIN: Skin appears to be pink and feels warm to touch. NEUROLOGIC: Patient is awake, alert, and follows commands appropriately. Exam/Review of Systems Vital Signs Vitals Vital Signs Date Time Temp Pulse Resp B/P Pulse Ox O2 Delivery O2 Flow Rate FiO2 08/24/17 12:04 93 08/24/17 11:22 98.3 19 97/55 98 08/24/17 08:32 Nasal Cannula 1.0 Intake and Output 08/23/17 08/23/17 08/24/17 15:00 23:00 07:00 Intake Total 320 ml 1700 ml Output Total 1800 ml Balance 320 ml -100 ml Results Result Diagram: 08/24/17 0555 08/24/17 0555 LIANG FRANCIS M.D. Aug 24, 2017 14:19
--- NOTE | 2017-08-24 19:22 | RADRPT ---
PROCEDURE: US bilateral lower extremity veins. CLINICAL INDICATION: Bilateral leg pain and swelling. TECHNIQUE: Multiple longitudinal and transverse images of the bilateral lower extremity veins were obtained with mayo scale and color Doppler imaging. The common femoral vein, femoral vein, and popl iteal vein were evaluated. 2D grayscale measurements with compression sonography, color Doppler, and pulsed Doppler with augmentation. COMPARISON: No prior studies are available for comparison. FINDINGS: The bilateral common femoral, femoral and popliteal veins are normally compressible throughout. Col or flow demonstrates normal filling of the vessels. Normal waveforms are visualized and there is no rmal response to augmentation. IMPRESSION: 1. No evidence of deep vein thrombosis involving either lower extremity. RPTAT: QQ .Trent Keller MD, MD Date Time Electronically viewed and signed by .Trent Keller MD, on 08/24/2017 19:22 .R/
[2017-08-25] VITALS (13 sets, daily range): BP systolic 95–109; BP diastolic 50–69; PULSE 79–95; RESP 17–20
[2017-08-25] MEDS: morphine 2 MG INJ IV PRN ×5 (01:19→22:23)
[2017-08-25] MEDS: SOD CHLORIDE 0.9% 1,000 ML IV SCH ×4 (01:23→16:03)
[2017-08-25] MEDS: VANCOMYCIN 1 GM in NS 250 ML IVPB SCH ×3 (04:24→20:38)
[2017-08-25 06:39] LABS: BASOPHIL # 0.1 10^3/ul (0.0-0.1); BASOPHILS % 0.6 % (0.0-2.0); EOSINOPHILS # 0.6 10^3/ul (0.0-0.5); EOSINOPHILS % 3.7 % (0.0-7.0); HEMATOCRIT 41.2 % (42.0-52.0); HEMOGLOBIN 14.2 g/dl (14.0-18.0); LYMPHOCYTES # 1.6 10^3/ul (0.8-2.9); LYMPHOCYTES % 9.3 % (15.0-51.0); MEAN CORPUSCULAR HEMOGLOBIN 32.1 pg (29.0-33.0); MEAN CORPUSCULAR HGB CONC 34.5 g/dl (32.0-37.0); MONOCYTE # 1.4 10^3/ul (0.3-0.9); MONOCYTES % 7.9 % (0.0-11.0); NEUTROPHIL # 13.1 10^3/ul (1.6-7.5); NEUTROPHILS % 77.3 % (39.0-77.0); PLATELET COUNT 273 10^3/UL (140-415); RED BLOOD COUNT 4.43 10^6/ul (4.70-6.10); RED CELL DISTRIBUTION WIDTH 12.6 % (11.5-14.5)
[2017-08-25 07:29] LABS: CALCIUM 8.5 mg/dl (8.4-10.2); CREATININE 0.88 mg/dl (0.61-1.24); POTASSIUM 3.6 mmol/L (3.5-5.1)
[2017-08-25] MEDS: CEFEPIME 2GM/50 ML (PMX) 50 ML IVPB SCH ×2 (08:02→22:23)
[2017-08-25] MEDS: HEPARIN 5,000 UNIT/0.5 ML VIAL SC SCH ×2 (08:05→21:45)
[2017-08-25] MEDS ORDERED: VANCOMYCIN 1.25 GM in SOD CHLORIDE 0.9% 250 ML IVPB SCH (10:00)
--- NOTE | 2017-08-25 11:01 | PN ---
Date/Time of Note Date/Time of Note DATE: 08/25/17 TIME: 10:57 Assessment/Plan VTE Prophylaxis VTE Prophylaxis Intervention: heparin Lines/Catheters [facility] ([facility] Peripheral IV Urinary Cath still in place: No Assessment/Plan Chief Complaint/Hosp Course ASSESSMENT AND PLAN: A 32-year-old male coming in with left knee redness and cellulitis, and also severe sepsis with some mild fever, leukocytosis like acidosis. 1. Severe sepsis - again secondary to left knee cellulitis, which spread up to his left upper leg and abdomen area. Slowly improving overall, but still significant redness and warmth present -Continue broad spectrum antibiotics, Tylenol as needed pain fevers -Continue aggressive IV fluid hydration as well, lactic acid has trended down now -Continue pain control medications as well. - Consider PT consult. 2. History of prior appendectomy. Monitor for now. Problems: Subjective 24 Hr Interval Summary Free Text/Dictation Patient still has lower LE redness, slightly improved since yesterday but still prominent. No fevers overnight. Exam/Review of Systems Vital Signs Vitals Vital Signs Date Time Temp Pulse Resp B/P Pulse Ox O2 Delivery O2 Flow Rate FiO2 08/25/17 08:02 85 08/25/17 07:18 98.4 20 96/54 98 08/24/17 08:32 Nasal Cannula 1.0 Intake and Output 08/24/17 08/24/17 08/25/17 15:00 23:00 07:00 Intake Total 50 ml 1275 ml 1670 ml Output Total 700 ml 2950 ml 2575 ml Balance -650 ml -1675 ml -905 ml Exam GENERAL: Patient is lying in bed, alert and awake. HEENT: Pupils equal, round, reactive to light. Extraocular muscles intact. NECK: Supple. No thyromegaly. LUNGS: Clear to auscultation bilaterally. CARDIOVASCULAR: Slightly tachycardic heart rate. No rubs or gallops. ABDOMEN: Soft, nontender, nondistended. Normal bowel sounds. No rebound or guarding. MUSCULOSKELETAL: left lower extremity: Still significant erythema in the left knee radiating up to the left leg and into the abdomen, less tender to palpation now around the left knee, but still warm to touch in these areas. Small discoloration in the anterior portion of the patella, but no pus or bleeding coming from this area. Otherwise, no lower extremity edema bilaterally. NEUROLOGIC: No focal deficits. Results Result Diagram: 08/25/17 0548 08/25/17 0548 Results 24 hrs Laboratory Tests Test 08/24/17 11:55 08/24/17 17:49 08/25/17 02:02 08/25/17 05:48 Lactic Acid Level 0.9 0.9 Vancomycin Level Trough < 5.0 L White Blood Count 17.0 H Red Blood Count 4.43 L Hemoglobin 14.2 Hematocrit 41.2 L Mean Corpuscular Volume 93.0 Mean Corpuscular Hemoglobin 32.1 Mean Corpuscular Hemoglobin Concent 34.5 Red Cell Distribution Width 12.6 Platelet Count 273 # Mean Platelet Volume 10.0 Neutrophils % 77.3 H Lymphocytes % 9.3 L Monocytes % 7.9 Eosinophils % 3.7 Basophils % 0.6 Nucleated Red Blood Cells % 0.0 Neutrophils # 13.1 H Lymphocytes # 1.6 Monocytes # 1.4 H Eosinophils # 0.6 H Basophils # 0.1 Nucleated Red Blood Cells # 0.0 Sodium Level 139 Potassium Level 3.6 Chloride Level 105 Carbon Dioxide Level 27 Anion Gap 11 Blood Urea Nitrogen 7 Creatinine 0.88 Glucose Level 91 Calcium Level 8.5 Medications Medications Current Medications Ondansetron HCl (Zofran Inj) 4 mg Q6H PRN IV NAUSEA AND/OR VOMITING; Start 07/30 at 15:00 Acetaminophen (Tylenol Tab) 650 mg Q6H PRN PO PAIN LEVEL 1-3 OR FEVER Last administered on 08/23/17 22:21; Admin Dose 650 MG; Start 08/23/17 at 15:00 Acetaminophen/ Hydrocodone Bitart ([place] (5/325)) 1 tab Q6H PRN PO MODERATE PAIN LEVEL 4-6 Last administered on 08/24/17 16:58; Admin Dose 1 TAB; Start 08/23/17 at 15:00 Morphine Sulfate (morphine) 2 mg Q4H PRN IV SEVERE PAIN LEVEL 7-10 Last administered on 08/25/17 07:57; Admin Dose 2 MG; Start 08/23/17 at 15:00 Docusate Sodium (Colace) 100 mg Q12H PRN PO CONSTIPATION; Start 08/23/17 at 15 :00 Magnesium Hydroxide (Milk Of Mag) 30 ml DAILY PRN PO CONSTIPATION; Start 08/23 at 15:00 Sodium Biphosphate/ Sodium Phosphate (Fleet Enema) 133 ml DAILY PRN [place] CONSTIPATION; Start 08/23/17 at 15:00 Heparin Sodium (Porcine) (Heparin (5000 Units/0.5 ml)) 5,000 unit Q12 SC Last administered on 08/25/17 08:05; Admin Dose 5,000 UNIT; Start 08/23/17 at 21: 00 Lorazepam 0.5 mg 0.5 mg Q6H PRN PO ANXIETY; Start 08/23/17 at 15:00 Sodium Chloride (NS) 1,000 ml @ 125 mls/hr Q8H IV Last administered on 01:23; Admin Dose 125 MLS/HR; Start 08/23/17 at 14:33 Vancomycin HCl (Vanco Iv Per Pharmacy) VANCOMYCIN PER PHARMACY NOTE XX ; Start 08/23/17 at 15:00 Hydralazine HCl (Apresoline) 10 mg Q6H PRN IV ELEVATED BLOOD PRESSURE; Start 08/23/17 at 15:00 Clonidine (Catapres) 0.1 mg Q6H PRN PO ELEVATED BLOOD PRESSURE; Start at 15:00 Nitroglycerin (Nitroglycerin (Sl Tab) 0.4 Mg) 1 tab Q5M PRN SL ANGINA; Start 08/23/17 at 15:00 Diphenhydramine HCl 25 mg 25 mg Q6H PRN IV ITCHING Last administered on 10:04; Admin Dose 25 MG; Start 08/24/17 at 02:00 Cefepime HCl 50 ml @ 100 mls/hr Q12 IVPB Last administered on 08/25/17 08:02 ; Admin Dose 100 MLS/HR; Start 08/24/17 at 12:00 Vancomycin HCl (Vancocin) 250 ml @ 125 mls/hr Q8H IVPB ; Start 08/25/17 at 12: 00 Miscellaneous Information (*Rx Drug Level Order Reminder*) VANCO TROUGH @ 1, 100 ON ... ONCE ONCE XX ; Start 08/26/17 at 11:00; Stop 08/26/17 at 11:01 DIVINE ELLIOTT 12, 2017 11:01
--- NOTE | 2017-08-25 13:19 | PN ---
Date/Time of Note Date/Time of Note DATE: 08/25/17 TIME: 13:15 Assessment/Plan Lines/Catheters IV Catheter Type (from Nrs): Peripheral IV Strong in Place (from Nrs): No Assessment/Plan Assessment/Plan [facility] Progress Note Date of Service: 08/25/2017 Location of Service: Fifth floor telemetry Today's Assessment & Plan: Overall stable and doing well. Left leg appears to be much improved. No evidence for necrotizing fasciitis. This still appears to be severe cellulitis which seems to be responding to antimicrobial management and current cares. No indication for acute surgical intervention. Explained to patient (no family in the room) and answered all questions. Patient appeared to understand and agreed with plans. Previous assessments that applies today: A very-pleasant and otherwise seemingly healthy 32-year-old gentleman presenting with moderate to severe cellulitis around his left knee. Patient's clinical picture as well as his LRINEC score of 5 indicates severe cellulitis and low probability for necrotizing fasciitis. His ultrasound shows soft tissue stranding and no obvious abscess (final report pending). We are awaiting his CT scan of the left knee area. I recommended hospitalization as well as aggressive medical management, and will make further decisions regarding operative assessment of the lesion after CT scan was done. Fortunately, CT did not suggest further evidence for necrotizing fasciitis. With above assessment, I've recommended the followin. Continue current cares 2. Continue monitoring the borders of the erythema on the left knee 3. Increase activity 4. Continue intravenous antimicrobials and converted to orals perhaps today or tomorrow; follow Dr. Spain's excellent directions Thank you very much for having me involved in the care of this very pleasant patient and wonderful family. If you have any questions, please feel free to contact me at [phone]. Nature of presenting problem: High severity Please note that, given the multiple number of diagnoses or management options, the moderate amount and/or complexity of data needed to be reviewed, and I risk of complications and/or morbidity or mortality, this qualifies as high complexity type of decision-making. Disclaimers: 1. Inadvertent spelling and grammatical errors are likely due to electronic health record (EHR)/dictation software used and do not reflect on the quality of delivered patient care. 2. The electronic timestamp recorded on this note does not necessarily reflect the actual date and time of the visit or the service. 3. Portions of this note may have been created through electronic templates and computer algorithms that might bring in information either from the system or from other physicians and providers. Please note that such information may or may not contain errors, the occurrence of which are outside of my control. In general (but not always) this happens either in the beginning or at the end of the note. The portion of the note that I have created are generally done in 1 continuous block of text, flanked at the beginning and at the end by " ", and entered into one field in the EHR. 4. There may be other unanticipated errors in the note that are outside of my control. I can only attest to the portions of the note that I have created. Updated clinical summary: A very-pleasant and otherwise seemingly healthy 32-year-old gentleman presenting with moderate to severe cellulitis around his left knee. Comorbidities: 1. Cocaine use in the past. Quit several years ago 2. Status post laparoscopic appendectomy [facility] [address]. Alcaraz Subjective: No major events or complaints; reports feeling much better with no further chills and overall improvement. + bowel activity; minimal activity Objective: Vitals: See below Exam: GENERAL: On exam, the patient was laying in bed and appeared to be comfortable and in no acute distress. ABDOMEN: Soft, nontender and nondistended. There are no peritoneal signs or guarding. EXTREMITIES: Skin overlying the left knee area is significantly less erythematous than yesterday and there is much less calor to touch. Small 3-4 cm in diameter area of skin right below the patella region is slightly more demarcated and pale in appearance (very minimally) compared to the rest of the skin, but not quite as striking as yesterday. The skin below the knee is normal. The skin overlying the thigh regions is less hyperemic than yesterday with almost complete resolution of the rash from yesterday. Calf compartments as well as the thigh compartments are all soft and nontender. Patient sensation in the lower extremity is normal. Otherwise normal exam and lower extremities contain no pitting edema around the ankles bilaterally and symmetrically. SKIN: Skin appears to be pink and feels warm to touch. NEUROLOGIC: Patient is awake, alert, and follows commands appropriately. Exam/Review of Systems Vital Signs Vitals Vital Signs Date Time Temp Pulse Resp B/P Pulse Ox O2 Delivery O2 Flow Rate FiO2 08/25/17 12:07 98.3 78 18 95/57 97 08/24/17 08:32 Nasal Cannula 1.0 Intake and Output 08/24/17 08/24/17 08/25/17 15:00 23:00 07:00 Intake Total 50 ml 1275 ml 1670 ml Output Total 700 ml 2950 ml 2575 ml Balance -650 ml -1675 ml -905 ml Results Result Diagram: 08/25/17 0548 08/25/17 0548 LIANG FRANCIS M.D. Aug 25, 2017 13:19
--- NOTE | 2017-08-25 16:22 | CONS ---
Date/Time of Note Date/Time of Note DATE: 08/25/17 TIME: 16:12 Consultation Date/Type/Reason Admit Date/Time Aug 23, 2017 at 12:37 Initial Consult Date SUBJECTIVE: 32-year-old male being treated for Lt knee cellulitis, pain. Pt still has mod amount of pain, but states that the swelling is less. VS: 106/69 P:85 R:19 SO2:100% T: 97.6. LABS: WBC-17.0 H&H: 14.2/41.2 BMP-normal. ALLERGIES: NONE TO PENICILLIN, SULFA OR FOODS. PHYSICAL EXAMINATION: GENERAL: The patient is awake, alert, no acute distress. Resting in bed. LYMPH NODES: None palpable. CHEST: Decreased breath sounds at the bases. CTA. HEART: RRR, No murmur or gallop. ABDOMEN: Soft, nontender,+BS EXTREMITIES: No cyanosis, clubbing or edema. There is moderate swelling and tenderness to palpation and erythema of the anterior knee. NEUROLOGIC: No focal neurological abnormalities. ASSESSMENT: 1. Lt knee cellulitis 2. IV drug user 3. Sepsis 4. Low-grade fevers. PLAN: Pt is stable. Will continue with current IV antbx. Surgical recommendations and pain management. Type of Consultation: ID Exam/Review of Systems Vital Signs Vitals Vital Signs Date Time Temp Pulse Resp B/P Pulse Ox O2 Delivery O2 Flow Rate FiO2 08/25/17 16:03 93 08/25/17 15:30 97.6 19 106/69 100 08/24/17 08:32 Nasal Cannula 1.0 Intake and Output 08/24/17 08/24/17 08/25/17 15:00 23:00 07:00 Intake Total 50 ml 1275 ml 1670 ml Output Total 700 ml 2950 ml 2575 ml Balance -650 ml -1675 ml -905 ml Results Result Diagram: 08/25/17 0548 08/25/17 0548 Results 24 hrs Laboratory Tests Test 08/24/17 17:49 08/25/17 02:02 08/25/17 05:48 Lactic Acid Level 0.9 Vancomycin Level Trough < 5.0 L White Blood Count 17.0 H Red Blood Count 4.43 L Hemoglobin 14.2 Hematocrit 41.2 L Mean Corpuscular Volume 93.0 Mean Corpuscular Hemoglobin 32.1 Mean Corpuscular Hemoglobin Concent 34.5 Red Cell Distribution Width 12.6 Platelet Count 273 # Mean Platelet Volume 10.0 Neutrophils % 77.3 H Lymphocytes % 9.3 L Monocytes % 7.9 Eosinophils % 3.7 Basophils % 0.6 Nucleated Red Blood Cells % 0.0 Neutrophils # 13.1 H Lymphocytes # 1.6 Monocytes # 1.4 H Eosinophils # 0.6 H Basophils # 0.1 Nucleated Red Blood Cells # 0.0 Sodium Level 139 Potassium Level 3.6 Chloride Level 105 Carbon Dioxide Level 27 Anion Gap 11 Blood Urea Nitrogen 7 Creatinine 0.88 Glucose Level 91 Calcium Level 8.5 Medications Medications Current Medications Ondansetron HCl (Zofran Inj) 4 mg Q6H PRN IV NAUSEA AND/OR VOMITING; Start 07/30 at 15:00 Acetaminophen (Tylenol Tab) 650 mg Q6H PRN PO PAIN LEVEL 1-3 OR FEVER Last administered on 08/23/17 22:21; Admin Dose 650 MG; Start 08/23/17 at 15:00 Acetaminophen/ Hydrocodone Bitart ([place] (5/325)) 1 tab Q6H PRN PO MODERATE PAIN LEVEL 4-6 Last administered on 08/24/17 16:58; Admin Dose 1 TAB; Start 08/23/17 at 15:00 Morphine Sulfate (morphine) 2 mg Q4H PRN IV SEVERE PAIN LEVEL 7-10 Last administered on 08/25/17 16:04; Admin Dose 2 MG; Start 08/23/17 at 15:00 Docusate Sodium (Colace) 100 mg Q12H PRN PO CONSTIPATION; Start 08/23/17 at 15 :00 Magnesium Hydroxide (Milk Of Mag) 30 ml DAILY PRN PO CONSTIPATION; Start 08/23 at 15:00 Sodium Biphosphate/ Sodium Phosphate (Fleet Enema) 133 ml DAILY PRN [place] CONSTIPATION; Start 08/23/17 at 15:00 Heparin Sodium (Porcine) (Heparin (5000 Units/0.5 ml)) 5,000 unit Q12 SC Last administered on 08/25/17 08:05; Admin Dose 5,000 UNIT; Start 08/23/17 at 21: 00 Lorazepam 0.5 mg 0.5 mg Q6H PRN PO ANXIETY; Start 08/23/17 at 15:00 Sodium Chloride (NS) 1,000 ml @ 125 mls/hr Q8H IV Last administered on 12:29; Admin Dose 125 MLS/HR; Start 08/23/17 at 14:33 Vancomycin HCl (Vanco Iv Per Pharmacy) VANCOMYCIN PER PHARMACY NOTE XX ; Start 08/23/17 at 15:00 Hydralazine HCl (Apresoline) 10 mg Q6H PRN IV ELEVATED BLOOD PRESSURE; Start 08/23/17 at 15:00 Clonidine (Catapres) 0.1 mg Q6H PRN PO ELEVATED BLOOD PRESSURE; Start at 15:00 Nitroglycerin (Nitroglycerin (Sl Tab) 0.4 Mg) 1 tab Q5M PRN SL ANGINA; Start 08/23/17 at 15:00 Diphenhydramine HCl 25 mg 25 mg Q6H PRN IV ITCHING Last administered on 10:04; Admin Dose 25 MG; Start 08/24/17 at 02:00 Cefepime HCl 50 ml @ 100 mls/hr Q12 IVPB Last administered on 08/25/17 08:02 ; Admin Dose 100 MLS/HR; Start 08/24/17 at 12:00 Vancomycin HCl (Vancocin) 250 ml @ 125 mls/hr Q8H IVPB Last administered on 12:32; Admin Dose 125 MLS/HR; Start 08/25/17 at 12:00 Miscellaneous Information (*Rx Drug Level Order Reminder*) VANCO TROUGH @ 1, 100 ON ... ONCE ONCE XX ; Start 08/26/17 at 11:00; Stop 08/26/17 at 11:01 BRITT MARTE Aug 25, 2017 16:22
[2017-08-25] MEDS: DOCUSATE SODIUM 100 MG CAP PO PRN (20:39)
[2017-08-26] VITALS (11 sets, daily range): BP systolic 98–130; BP diastolic 54–66; PULSE 54–78; RESP 16–20
[2017-08-26] MEDS: SOD CHLORIDE 0.9% 1,000 ML IV SCH ×2 (00:59→08:15)
[2017-08-26] MEDS: VANCOMYCIN 1 GM in NS 250 ML IVPB SCH ×3 (04:43→21:24)
[2017-08-26 07:02] LABS: ABNORMAL IP MESSAGE 1; BASOPHIL # 0.1 10^3/ul (0.0-0.1); EOSINOPHILS # 0.6 10^3/ul (0.0-0.5); EOSINOPHILS % 4.2 % (0.0-7.0); HEMATOCRIT 42.7 % (42.0-52.0); HEMOGLOBIN 14.4 g/dl (14.0-18.0); LYMPHOCYTES # 2.7 10^3/ul (0.8-2.9); LYMPHOCYTES % 18.2 % (15.0-51.0); MEAN CORPUSCULAR HEMOGLOBIN 31.1 pg (29.0-33.0); MEAN CORPUSCULAR HGB CONC 33.7 g/dl (32.0-37.0); MEAN CORPUSCULAR VOLUME 92.2 fl (82.0-101.0); MEAN PLATELET VOLUME 9.8 fl (7.4-10.4); MONOCYTE # 1.1 10^3/ul (0.3-0.9); MONOCYTES % 7.3 % (0.0-11.0); NEUTROPHIL # 9.3 10^3/ul (1.6-7.5); PLATELET COUNT 306 10^3/UL (140-415); POSITIVE DIFF @See below; RED BLOOD COUNT 4.63 10^6/ul (4.70-6.10); RED CELL DISTRIBUTION WIDTH 12.8 % (11.5-14.5); WHITE BLOOD COUNT 14.6 10^3/ul (4.8-10.8)
--- NOTE | 2017-08-26 07:12 | PN ---
DATE: 08/24/2017 SUBJECTIVE: No events overnight. Patient is alert, feels much better. Looks comfortable, no fever s. LABORATORY: WBC 14.7, neutrophils 81.3, no bands. BUN 9, creatinine 0.95. MICROBIOLOGY: Blood and urine cultures remain negative. ANTIMICROBIALS: The patient is on: 1. Vancomycin. 2. Cefepime. PHYSICAL EXAMINATION: GENERAL: Well-nourished, well-developed, middle-aged man who is alert, in no distress. HEENT: Head atraumatic, normocephalic. Sclerae anicteric. Buccal mucosa pink. NECK: Supple. CHEST: Rise symmetrical. Breath sounds clear. HEART: S1, S2. ABDOMEN: Soft, bowel tones present. EXTREMITIES: With extensive erythema and edema of left knee extending up to the thigh and lower bel ow knee, per report improving. ASSESSMENT: 1. Left lower extremity cellulitis without evidence for necrotizing fasciitis, improving on antibio tics. 2. Systemic inflammatory response syndrome secondary to above. PLAN: The patient remains stable, overall improving. Surgery on case. Continue present care, anti biotics. Keep left lower extremity elevated. Dictated By: JOO CARLIN POLLS [employer] SURVEYS INTERVIEWER for SABRA MONTESINOS/REBEL Conf#: [id number] DID#: [id number]
[2017-08-26 07:23] LABS: CALCIUM 8.7 mg/dl (8.4-10.2); CREATININE 0.85 mg/dl (0.61-1.24)
[2017-08-26] MEDS: CEFEPIME 2GM/50 ML (PMX) 50 ML IVPB SCH (08:14)
[2017-08-26] MEDS: HEPARIN 5,000 UNIT/0.5 ML VIAL SC SCH ×2 (08:21→21:35)
[2017-08-26] MEDS: morphine 2 MG INJ IV PRN (09:20)
[2017-08-26] MEDS: DOCUSATE SODIUM 100 MG CAP PO PRN (09:20)
[2017-08-26] MEDS ORDERED: CLINDAMYCIN 600 MG/D5W (PMX) 50 ML IVPB SCH (10:00)
--- NOTE | 2017-08-26 12:51 | CONS ---
Date/Time of Note Date/Time of Note DATE: 08/26/17 TIME: 12:49 Assessment/Plan Assessment/Plan Chief Complaint/Hosp Course SUBJECTIVE: No events overnight. Patient is alert, feels much better. Looks comfortable, no fevers. MICROBIOLOGY: Blood and urine cultures remain negative. ANTIMICROBIALS: Clindamycin PHYSICAL EXAMINATION: GENERAL: Well-nourished, well-developed, middle-aged man who is alert, in no distress. HEENT: Head atraumatic, normocephalic. Sclerae anicteric. Buccal mucosa pink. NECK: Supple. CHEST: Rise symmetrical. Breath sounds clear. HEART: S1, S2. ABDOMEN: Soft, bowel tones present. EXTREMITIES: LLE looks much better ASSESSMENT: 1. Left lower extremity cellulitis without evidence for necrotizing fasciitis, improving on antibiotics. 2. Systemic inflammatory response syndrome secondary to above. PLAN: The patient remains stable, LLE looks better. Antibiotics changed to Clindamycin. Will keep on Cefepime, continue left lower extremity elevation. DW staff Problems: Consultation Date/Type/Reason Admit Date/Time Aug 23, 2017 at 12:37 Initial Consult Date Type of Consultation: ID Exam/Review of Systems Vital Signs Vitals Vital Signs Date Time Temp Pulse Resp B/P Pulse Ox O2 Delivery O2 Flow Rate FiO2 08/26/17 12:04 73 08/26/17 11:16 97.8 20 108/66 100 08/24/17 08:32 Nasal Cannula 1.0 Intake and Output 08/25/17 08/25/17 08/26/17 15:00 23:00 07:00 Intake Total 925 ml 2650 ml 1400 ml Output Total 3000 ml 1750 ml Balance 925 ml -350 ml -350 ml Results Result Diagram: 08/26/17 0623 08/26/17 0623 Results 24 hrs Laboratory Tests Test 08/26/17 06:23 White Blood Count 14.6 H Red Blood Count 4.63 L Hemoglobin 14.4 Hematocrit 42.7 Mean Corpuscular Volume 92.2 Mean Corpuscular Hemoglobin 31.1 Mean Corpuscular Hemoglobin Concent 33.7 Red Cell Distribution Width 12.8 Platelet Count 306 Mean Platelet Volume 9.8 Neutrophils % 64.0 Lymphocytes % 18.2 Monocytes % 7.3 Eosinophils % 4.2 Basophils % 1.0 Nucleated Red Blood Cells % 0.0 Neutrophils # 9.3 H Lymphocytes # 2.7 Monocytes # 1.1 H Eosinophils # 0.6 H Basophils # 0.1 Nucleated Red Blood Cells # 0.0 Sodium Level 143 Potassium Level 4.0 Chloride Level 110 Carbon Dioxide Level 26 Anion Gap 11 Blood Urea Nitrogen 10 Creatinine 0.85 Glucose Level 89 Calcium Level 8.7 Medications Medications Current Medications Ondansetron HCl (Zofran Inj) 4 mg Q6H PRN IV NAUSEA AND/OR VOMITING; Start 07/30 at 15:00 Acetaminophen (Tylenol Tab) 650 mg Q6H PRN PO PAIN LEVEL 1-3 OR FEVER Last administered on 08/23/17 22:21; Admin Dose 650 MG; Start 08/23/17 at 15:00 Acetaminophen/ Hydrocodone Bitart ([place] (5/325)) 1 tab Q6H PRN PO MODERATE PAIN LEVEL 4-6 Last administered on 08/24/17 16:58; Admin Dose 1 TAB; Start 08/23/17 at 15:00 Morphine Sulfate (morphine) 2 mg Q4H PRN IV SEVERE PAIN LEVEL 7-10 Last administered on 08/26/17 09:20; Admin Dose 2 MG; Start 08/23/17 at 15:00 Docusate Sodium (Colace) 100 mg Q12H PRN PO CONSTIPATION Last administered on 08/26/17 09:20; Admin Dose 100 MG; Start 08/23/17 at 15:00 Magnesium Hydroxide (Milk Of Mag) 30 ml DAILY PRN PO CONSTIPATION; Start 08/23 at 15:00 Sodium Biphosphate/ Sodium Phosphate (Fleet Enema) 133 ml DAILY PRN [place] CONSTIPATION; Start 08/23/17 at 15:00 Heparin Sodium (Porcine) (Heparin (5000 Units/0.5 ml)) 5,000 unit Q12 SC Last administered on 08/26/17 08:21; Admin Dose 5,000 UNIT; Start 08/23/17 at 21: 00 Hydralazine HCl (Apresoline) 10 mg Q6H PRN IV ELEVATED BLOOD PRESSURE; Start 08/23/17 at 15:00 Clonidine (Catapres) 0.1 mg Q6H PRN PO ELEVATED BLOOD PRESSURE; Start at 15:00 Nitroglycerin 1 tab 1 tab Q5M PRN SL ANGINA; Start 08/23/17 at 15:00 Clindamycin HCl/ Dextrose (Cleocin 600 Mg/ D5W (Pmx)) 50 ml @ 50 mls/hr Q8H IVPB Last administered on 08/26/17t 11:01; Admin Dose 50 MLS/HR; Start at 10:00 JOO CARLIN NP Aug 26, 2017 12:50 JOO CARLIN NP Aug 26, 2017 12:50 JOO CARLIN NP Aug 26, 2017 12:50
--- NOTE | 2017-08-26 14:02 | PN ---
Date/Time of Note Date/Time of Note DATE: 08/26/17 TIME: 13:58 Assessment/Plan VTE Prophylaxis VTE Prophylaxis Intervention: SCD's Lines/Catheters IV Catheter Type (from Nrsg): Peripheral IV Urinary Cath still in place: No Assessment/Plan Assessment/Plan 32 yo M admitted for sepsis from L knee cellulitis -narrow abx to clinda. This is in line with IDSA guidelines for severe cellulitis. No evidence of nec fasc. No compelling indication for gram negative coverage -PT eval for knee pain plan to change to PO clinda tomorrow if cellulitis continues to improve and then hopefully discharge Subjective 24 Hr Interval Summary Free Text/Dictation L knee swelling and pain significantly improved Exam/Review of Systems Vital Signs Vitals Vital Signs Date Time Temp Pulse Resp B/P Pulse Ox O2 Delivery O2 Flow Rate FiO2 08/26/17 12:04 73 08/26/17 11:16 97.8 20 108/66 100 08/24/17 08:32 Nasal Cannula 1.0 Intake and Output 08/25/17 08/25/17 08/26/17 15:00 23:00 07:00 Intake Total 925 ml 2650 ml 1400 ml Output Total 3000 ml 1750 ml Balance 925 ml -350 ml -350 ml Exam nad no mrg lungs clear abd soft sig improvement in RLE erythema around his knee, sig retraction from borders drawn 11.11. ROM in L knee improving her patient Results Result Diagram: 08/26/17 0623 08/26/17 0623 Results 24 hrs Laboratory Tests Test 08/26/17 06:23 White Blood Count 14.6 H Red Blood Count 4.63 L Hemoglobin 14.4 Hematocrit 42.7 Mean Corpuscular Volume 92.2 Mean Corpuscular Hemoglobin 31.1 Mean Corpuscular Hemoglobin Concent 33.7 Red Cell Distribution Width 12.8 Platelet Count 306 Mean Platelet Volume 9.8 Neutrophils % 64.0 Lymphocytes % 18.2 Monocytes % 7.3 Eosinophils % 4.2 Basophils % 1.0 Nucleated Red Blood Cells % 0.0 Neutrophils # 9.3 H Lymphocytes # 2.7 Monocytes # 1.1 H Eosinophils # 0.6 H Basophils # 0.1 Nucleated Red Blood Cells # 0.0 Sodium Level 143 Potassium Level 4.0 Chloride Level 110 Carbon Dioxide Level 26 Anion Gap 11 Blood Urea Nitrogen 10 Creatinine 0.85 Glucose Level 89 Calcium Level 8.7 Medications Medications Current Medications Ondansetron HCl (Zofran Inj) 4 mg Q6H PRN IV NAUSEA AND/OR VOMITING; Start 07/30 at 15:00 Acetaminophen (Tylenol Tab) 650 mg Q6H PRN PO PAIN LEVEL 1-3 OR FEVER Last administered on 08/23/17 22:21; Admin Dose 650 MG; Start 08/23/17 at 15:00 Acetaminophen/ Hydrocodone Bitart ([place] (5/325)) 1 tab Q6H PRN PO MODERATE PAIN LEVEL 4-6 Last administered on 08/24/17 16:58; Admin Dose 1 TAB; Start 08/23/17 at 15:00 Morphine Sulfate (morphine) 2 mg Q4H PRN IV SEVERE PAIN LEVEL 7-10 Last administered on 08/26/17 09:20; Admin Dose 2 MG; Start 08/23/17 at 15:00 Docusate Sodium (Colace) 100 mg Q12H PRN PO CONSTIPATION Last administered on 08/26/17 09:20; Admin Dose 100 MG; Start 08/23/17 at 15:00 Magnesium Hydroxide (Milk Of Mag) 30 ml DAILY PRN PO CONSTIPATION; Start 08/23 at 15:00 Sodium Biphosphate/ Sodium Phosphate (Fleet Enema) 133 ml DAILY PRN [place] CONSTIPATION; Start 08/23/17 at 15:00 Heparin Sodium (Porcine) (Heparin (5000 Units/0.5 ml)) 5,000 unit Q12 SC Last administered on 08/26/17 08:21; Admin Dose 5,000 UNIT; Start 08/23/17 at 21: 00 Hydralazine HCl (Apresoline) 10 mg Q6H PRN IV ELEVATED BLOOD PRESSURE; Start 08/23/17 at 15:00 Clonidine (Catapres) 0.1 mg Q6H PRN PO ELEVATED BLOOD PRESSURE; Start at 15:00 Nitroglycerin 1 tab 1 tab Q5M PRN SL ANGINA; Start 08/23/17 at 15:00 Clindamycin HCl/ Dextrose 50 ml @ 50 mls/hr Q8H IVPB Last administered on 08/26 11:01; Admin Dose 50 MLS/HR; Start 08/26/17 at 10:00 Cefepime HCl (Maxipime 1gm/50 ml (Pmx)) 50 ml @ 100 mls/hr Q12 IVPB ; Start at 21:00 MELISSA MARKS MD Aug 26, 2017 14:02
--- NOTE | 2017-08-26 14:05 | PN ---
Date/Time of Note Date/Time of Note DATE: 08/26/17 TIME: 14:03 Assessment/Plan Lines/Catheters IV Catheter Type (from [facility]): Peripheral IV Strong in Place (from [facility]): No Assessment/Plan Assessment/Plan [facility] Progress Note Date of Service: 08/26/2017 Location of Service: Fifth floor telemetry Today's Assessment & Plan: Overall stable and doing well. Left leg appears to be much improved. No evidence for necrotizing fasciitis. This appears to be severe cellulitis which seems to be responding to antimicrobial management and current cares. No indication for acute surgical intervention. Explained to patient (no family in the room) and answered all questions. Patient appeared to understand and agreed with plans. Previous assessments that applies today: A very-pleasant and otherwise seemingly healthy 32-year-old gentleman presenting with moderate to severe cellulitis around his left knee. Patient's clinical picture as well as his LRINEC score of 5 indicates severe cellulitis and low probability for necrotizing fasciitis. His ultrasound shows soft tissue stranding and no obvious abscess (final report pending). We are awaiting his CT scan of the left knee area. I recommended hospitalization as well as aggressive medical management, and will make further decisions regarding operative assessment of the lesion after CT scan was done. Fortunately, CT did not suggest further evidence for necrotizing fasciitis. With above assessment, I've recommended the followin. Continue current cares 2. Continue monitoring the borders of the erythema on the left knee 3. Increase activity 4. Continue intravenous antimicrobials and converted to orals perhaps today or tomorrow; follow Dr. Spain's excellent directions 5. Once d/c'd, please have patient follow up with PCP 6. Since no further acute surgical issues, will sign off; please call with questions Thank you very much for having me involved in the care of this very pleasant patient and wonderful family. If you have any questions, please feel free to contact me at [phone]. Nature of presenting problem: High severity Please note that, given the multiple number of diagnoses or management options, the moderate amount and/or complexity of data needed to be reviewed, and I risk of complications and/or morbidity or mortality, this qualifies as high complexity type of decision-making. Disclaimers: 1. Inadvertent spelling and grammatical errors are likely due to electronic health record (EHR)/dictation software used and do not reflect on the quality of delivered patient care. 2. The electronic timestamp recorded on this note does not necessarily reflect the actual date and time of the visit or the service. 3. Portions of this note may have been created through electronic templates and computer algorithms that might bring in information either from the system or from other physicians and providers. Please note that such information may or may not contain errors, the occurrence of which are outside of my control. In general (but not always) this happens either in the beginning or at the end of the note. The portion of the note that I have created are generally done in 1 continuous block of text, flanked at the beginning and at the end by " ", and entered into one field in the EHR. 4. There may be other unanticipated errors in the note that are outside of my control. I can only attest to the portions of the note that I have created. Updated clinical summary: A very-pleasant and otherwise seemingly healthy 32-year-old gentleman presenting with moderate to severe cellulitis around his left knee. Comorbidities: 1. Cocaine use in the past. Quit several years ago 2. Status post laparoscopic appendectomy [facility] [address]. Alcaraz Subjective: No major events or complaints; reports feeling much better with no further chills and overall improvement. + bowel activity; minimal activity Objective: Vitals: See below Exam: GENERAL: On exam, the patient was laying in bed and appeared to be comfortable and in no acute distress. ABDOMEN: Soft, nontender and nondistended. There are no peritoneal signs or guarding. EXTREMITIES: Skin overlying the left knee area is significantly less erythematous than before and there is no sig calor to touch. The skin below the knee is normal. The skin overlying the thigh regions is less hyperemic than yesterday with almost complete resolution of the rash from yesterday. Calf compartments as well as the thigh compartments are all soft and nontender. Patient sensation in the lower extremity is normal. Otherwise normal exam and lower extremities contain no pitting edema around the ankles bilaterally and symmetrically. SKIN: Skin appears to be pink and feels warm to touch. NEUROLOGIC: Patient is awake, alert, and follows commands appropriately. Exam/Review of Systems Vital Signs Vitals Vital Signs Date Time Temp Pulse Resp B/P Pulse Ox O2 Delivery O2 Flow Rate FiO2 08/26/17 12:04 73 08/26/17 11:16 97.8 20 108/66 100 08/24/17 08:32 Nasal Cannula 1.0 Intake and Output 08/25/17 08/25/17 08/26/17 15:00 23:00 07:00 Intake Total 925 ml 2650 ml 1400 ml Output Total 3000 ml 1750 ml Balance 925 ml -350 ml -350 ml Results Result Diagram: 08/26/17 0623 08/26/17 0623 LIANG FRANCIS M.D. Aug 26, 2017 14:05
[2017-08-26] MEDS ORDERED: VANCOMYCIN IV PER PHARMACY XX SCH (16:30)
[2017-08-26] MEDS ORDERED: TRIMETHOPRIM/SULFAMETHOX (DS) TAB PO SCH (21:00)
[2017-08-26] MEDS ORDERED: CEFEPIME 1GM/50 ML (PMX) 50 ML IVPB SCH (21:00)
[2017-08-27] VITALS (13 sets, daily range): BP systolic 94–133; BP diastolic 52–60; PULSE 55–75; RESP 16–20
[2017-08-27] MEDS ORDERED: VITAMIN A & D 5 GM OINT PACKET TOP ONE (02:06)
[2017-08-27 08:17] LABS: ABNORMAL IP MESSAGE 1; BASOPHIL # 0.1 10^3/ul (0.0-0.1); BASOPHILS % 0.5 % (0.0-2.0); EOSINOPHILS # 0.5 10^3/ul (0.0-0.5); HEMATOCRIT 44.3 % (42.0-52.0); HEMOGLOBIN 15.3 g/dl (14.0-18.0); LYMPHOCYTES # 3.7 10^3/ul (0.8-2.9); LYMPHOCYTES % 20.3 % (15.0-51.0); MEAN CORPUSCULAR HEMOGLOBIN 31.8 pg (29.0-33.0); MEAN CORPUSCULAR HGB CONC 34.5 g/dl (32.0-37.0); MEAN CORPUSCULAR VOLUME 92.1 fl (82.0-101.0); MEAN PLATELET VOLUME 9.2 fl (7.4-10.4); MONOCYTE # 1.4 10^3/ul (0.3-0.9); MONOCYTES % 7.7 % (0.0-11.0); NEUTROPHIL # 10.5 10^3/ul (1.6-7.5); NEUTROPHILS % 57.9 % (39.0-77.0); PLATELET COUNT 356 10^3/UL (140-415); POSITIVE DIFF @See below; RED BLOOD COUNT 4.81 10^6/ul (4.70-6.10); RED CELL DISTRIBUTION WIDTH 12.5 % (11.5-14.5); WHITE BLOOD COUNT 18.1 10^3/ul (4.8-10.8)
[2017-08-27 08:35] LABS: CALCIUM 8.9 mg/dl (8.4-10.2); CREATININE 0.97 mg/dl (0.61-1.24); POTASSIUM 4.4 mmol/L (3.5-5.1)
[2017-08-27] MEDS: VANCOMYCIN 1 GM in NS 250 ML IVPB SCH (09:02)
[2017-08-27] MEDS: HEPARIN 5,000 UNIT/0.5 ML VIAL SC SCH ×2 (09:55→20:52)
--- NOTE | 2017-08-27 13:27 | CONS ---
Date/Time of Note Date/Time of Note DATE: 08/27/17 TIME: 13:26 Consult Date/Type/Reason Admit Date/Time Aug 23, 2017 at 12:37 Type of Consultation: ID Objective Vital Signs Date Time Temp Pulse Resp B/P Pulse Ox O2 Delivery O2 Flow Rate FiO2 08/27/17 12:14 72 08/27/17 12:03 98.1 18 111/55 98 08/24/17 08:32 Nasal Cannula 1.0 Intake and Output 08/26/17 08/26/17 08/27/17 15:00 23:00 07:00 Intake Total 2100 ml 800 ml Output Total 3000 ml Balance -900 ml 800 ml Results/Medications Result Diagram: 08/27/17 0800 08/27/17 0800 Results 24 hrs Laboratory Tests Test 08/27/17 08:00 White Blood Count 18.1 #H Red Blood Count 4.81 Hemoglobin 15.3 Hematocrit 44.3 Mean Corpuscular Volume 92.1 Mean Corpuscular Hemoglobin 31.8 Mean Corpuscular Hemoglobin Concent 34.5 Red Cell Distribution Width 12.5 Platelet Count 356 Mean Platelet Volume 9.2 Neutrophils % 57.9 Lymphocytes % 20.3 Monocytes % 7.7 Eosinophils % 3.0 Basophils % 0.5 Nucleated Red Blood Cells % 0.0 Neutrophils # 10.5 H Lymphocytes # 3.7 H Monocytes # 1.4 H Eosinophils # 0.5 Basophils # 0.1 Nucleated Red Blood Cells # 0.0 Sodium Level 143 Potassium Level 4.4 Chloride Level 106 Carbon Dioxide Level 29 Anion Gap 12 Blood Urea Nitrogen 11 Creatinine 0.97 Glucose Level 100 Calcium Level 8.9 Medications Current Medications Ondansetron HCl (Zofran Inj) 4 mg Q6H PRN IV NAUSEA AND/OR VOMITING; Start 07/30 at 15:00 Acetaminophen (Tylenol Tab) 650 mg Q6H PRN PO PAIN LEVEL 1-3 OR FEVER Last administered on 08/23/17 22:21; Admin Dose 650 MG; Start 08/23/17 at 15:00 Acetaminophen/ Hydrocodone Bitart ([place] (5/325)) 1 tab Q6H PRN PO MODERATE PAIN LEVEL 4-6 Last administered on 08/24/17 16:58; Admin Dose 1 TAB; Start 08/23/17 at 15:00 Morphine Sulfate (morphine) 2 mg Q4H PRN IV SEVERE PAIN LEVEL 7-10 Last administered on 08/26/17 09:20; Admin Dose 2 MG; Start 08/23/17 at 15:00 Docusate Sodium (Colace) 100 mg Q12H PRN PO CONSTIPATION Last administered on 08/26/17 09:20; Admin Dose 100 MG; Start 08/23/17 at 15:00 Magnesium Hydroxide (Milk Of Mag) 30 ml DAILY PRN PO CONSTIPATION; Start 08/23 at 15:00 Sodium Biphosphate/ Sodium Phosphate (Fleet Enema) 133 ml DAILY PRN [place] CONSTIPATION; Start 08/23/17 at 15:00 Heparin Sodium (Porcine) (Heparin (5000 Units/0.5 ml)) 5,000 unit Q12 SC Last administered on 08/27/17 09:55; Admin Dose 5,000 UNIT; Start 08/23/17 at 21: 00 Hydralazine HCl (Apresoline) 10 mg Q6H PRN IV ELEVATED BLOOD PRESSURE; Start 08/23/17 at 15:00 Clonidine (Catapres) 0.1 mg Q6H PRN PO ELEVATED BLOOD PRESSURE; Start at 15:00 Nitroglycerin 1 tab 1 tab Q5M PRN SL ANGINA; Start 08/23/17 at 15:00 Vancomycin HCl (Vancocin) 250 ml @ 125 mls/hr Q8H IVPB Last administered on 09:02; Admin Dose 125 MLS/HR; Start 08/26/17 at 17:00 Miscellaneous Information (*Rx Drug Level Order Reminder*) VANCOMYCIN TROUGH ON 08/14... ONCE ONCE XX ; Start 08/28/17 at 00:00; Stop 08/28/17 at 00:01 Assessment/Plan Chief Complaint/Hosp Course SUBJECTIVE: No events overnight. Patient is alert, feels much better, unable to walk 2 to L knee pain. Looks comfortable, no fevers. MICROBIOLOGY: Blood and urine cultures remain negative. ALL: Zosyn ANTIMICROBIALS: Vanco PHYSICAL EXAMINATION: GENERAL: Well-nourished, well-developed, middle-aged man who is alert, in no distress. HEENT: Head atraumatic, normocephalic. Sclerae anicteric. Buccal mucosa pink. NECK: Supple. CHEST: Rise symmetrical. Breath sounds clear. HEART: S1, S2. ABDOMEN: Soft, bowel tones present. EXTREMITIES: LLE looks much better ASSESSMENT: 1. Left lower extremity cellulitis==> resolving. 2. Systemic inflammatory response syndrome secondary to above. PLAN: The patient remains stable, LLE looks much better. Continue abx, anticipate dc on oral Bactrim, surgical rec-s noted [facility] staff Problems: JOO CARLIN NP Aug 27, 2017 13:27
--- NOTE | 2017-08-27 16:26 | PN ---
Date/Time of Note Date/Time of Note DATE: 08/27/17 TIME: 16:24 Assessment/Plan VTE Prophylaxis VTE Prophylaxis Intervention: SCD's Lines/Catheters [facility] Saline Lock Urinary Cath still in place: No Assessment/Plan Assessment/Plan 32 yo M admitted for sepsis from L knee cellulitis -convert vanc to PO bactrim -CM consult based on PT recs likely dc tomorrow if cellulitis continues to improve on PO Subjective 24 Hr Interval Summary Free Text/Dictation Pt states he has never injected drugs. Has used cocaine previously but only intranasally Exam/Review of Systems Vital Signs Vitals Vital Signs Date Time Temp Pulse Resp B/P Pulse Ox O2 Delivery O2 Flow Rate FiO2 08/27/17 16:03 75 08/27/17 15:31 98.1 18 111/55 95 08/24/17 08:32 Nasal Cannula 1.0 Intake and Output 08/26/17 08/26/17 08/27/17 14:59 22:59 06:59 Intake Total 2100 ml 800 ml Output Total 3000 ml Balance -900 ml 800 ml Exam nad no mrg lungs clear abd soft no rashes LLE cellulitis continues to improve Results Result Diagram: 08/27/17 0800 08/27/17 0800 Results 24 hrs Laboratory Tests Test 08/27/17 08:00 White Blood Count 18.1 #H Red Blood Count 4.81 Hemoglobin 15.3 Hematocrit 44.3 Mean Corpuscular Volume 92.1 Mean Corpuscular Hemoglobin 31.8 Mean Corpuscular Hemoglobin Concent 34.5 Red Cell Distribution Width 12.5 Platelet Count 356 Mean Platelet Volume 9.2 Neutrophils % 57.9 Lymphocytes % 20.3 Monocytes % 7.7 Eosinophils % 3.0 Basophils % 0.5 Nucleated Red Blood Cells % 0.0 Neutrophils # 10.5 H Lymphocytes # 3.7 H Monocytes # 1.4 H Eosinophils # 0.5 Basophils # 0.1 Nucleated Red Blood Cells # 0.0 Sodium Level 143 Potassium Level 4.4 Chloride Level 106 Carbon Dioxide Level 29 Anion Gap 12 Blood Urea Nitrogen 11 Creatinine 0.97 Glucose Level 100 Calcium Level 8.9 Medications Medications Current Medications Ondansetron HCl (Zofran Inj) 4 mg Q6H PRN IV NAUSEA AND/OR VOMITING; Start 07/30 at 15:00 Acetaminophen (Tylenol Tab) 650 mg Q6H PRN PO PAIN LEVEL 1-3 OR FEVER Last administered on 08/23/17 22:21; Admin Dose 650 MG; Start 08/23/17 at 15:00 Acetaminophen/ Hydrocodone Bitart ([place] (5/325)) 1 tab Q6H PRN PO MODERATE PAIN LEVEL 4-6 Last administered on 08/24/17 16:58; Admin Dose 1 TAB; Start 08/23/17 at 15:00 Morphine Sulfate (morphine) 2 mg Q4H PRN IV SEVERE PAIN LEVEL 7-10 Last administered on 08/26/17 09:20; Admin Dose 2 MG; Start 08/23/17 at 15:00 Docusate Sodium (Colace) 100 mg Q12H PRN PO CONSTIPATION Last administered on 08/26/17 09:20; Admin Dose 100 MG; Start 08/23/17 at 15:00 Magnesium Hydroxide (Milk Of Mag) 30 ml DAILY PRN PO CONSTIPATION; Start 08/23 at 15:00 Sodium Biphosphate/ Sodium Phosphate (Fleet Enema) 133 ml DAILY PRN [place] CONSTIPATION; Start 08/23/17 at 15:00 Heparin Sodium (Porcine) (Heparin (5000 Units/0.5 ml)) 5,000 unit Q12 SC Last administered on 08/27/17 09:55; Admin Dose 5,000 UNIT; Start 08/23/17 at 21: 00 Hydralazine HCl (Apresoline) 10 mg Q6H PRN IV ELEVATED BLOOD PRESSURE; Start 08/23/17 at 15:00 Clonidine (Catapres) 0.1 mg Q6H PRN PO ELEVATED BLOOD PRESSURE; Start at 15:00 Nitroglycerin 1 tab 1 tab Q5M PRN SL ANGINA; Start 08/23/17 at 15:00 Vancomycin HCl (Vancocin) 250 ml @ 125 mls/hr Q8H IVPB Last administered on 09:02; Admin Dose 125 MLS/HR; Start 08/26/17 at 17:00 Miscellaneous Information (*Rx Drug Level Order Reminder*) VANCOMYCIN TROUGH ON 08/14... ONCE ONCE XX ; Start 08/28/17 at 00:00; Stop 08/28/17 at 00:01 MELISSA MARKS MD Aug 27, 2017 16:26
--- NOTE | 2017-08-27 16:53 | RADRPT ---
PROCEDURE: US soft tissue CLINICAL INDICATION: Soft tissue swelling anterior to the patella. Evaluate for possible abscess. TECHNIQUE: Multiple sonographic images of the left anteriorly soft tissues were obtained utilizing a linear array transducer with mayo scale and color-flow. COMPARISON: CT and ultrasound 08/23/2017 FINDINGS: Ultrasound over the palpable area in the anterior left knee demonstrates soft tissue swelling with a n echogenic subcutaneous fluid collection anterior to the patella measuring 2.3 x 0.5 cm with adjace nt soft tissue hyper vascularity. IMPRESSION: Echogenic subcutaneous fluid collection anterior to the patella may represent a hematoma or abscess with adjacent hyperemia. RPTAT:AAJJ Physician Tresa Date Time Electronically viewed and signed by Physician Tresa on 08/27/2017 16:52 /
[2017-08-27] MEDS: TRIMETHOPRIM/SULFAMETHOX (DS) TAB PO SCH (20:50)
[2017-08-27] MEDS: HYDROCODONE/APAP (5/325) TAB PO PRN (21:01)
[2017-08-28] VITALS (12 sets, daily range): BP systolic 86–105; BP diastolic 55–83; PULSE 63–89; RESP 16–20
[2017-08-28 08:21] LABS: ABNORMAL IP MESSAGE 1; BASOPHIL # 0.1 10^3/ul (0.0-0.1); BASOPHILS % 0.4 % (0.0-2.0); EOSINOPHILS # 0.4 10^3/ul (0.0-0.5); HEMATOCRIT 46.2 % (42.0-52.0); HEMOGLOBIN 15.6 g/dl (14.0-18.0); LYMPHOCYTES # 3.4 10^3/ul (0.8-2.9); LYMPHOCYTES % 17.9 % (15.0-51.0); MEAN CORPUSCULAR HEMOGLOBIN 31.5 pg (29.0-33.0); MEAN CORPUSCULAR HGB CONC 33.8 g/dl (32.0-37.0); MEAN CORPUSCULAR VOLUME 93.3 fl (82.0-101.0); MEAN PLATELET VOLUME 9.3 fl (7.4-10.4); MONOCYTE # 1.5 10^3/ul (0.3-0.9); NEUTROPHIL # 11.1 10^3/ul (1.6-7.5); NEUTROPHILS % 58.2 % (39.0-77.0); PLATELET COUNT 381 10^3/UL (140-415); POSITIVE DIFF @See below; RED BLOOD COUNT 4.95 10^6/ul (4.70-6.10); RED CELL DISTRIBUTION WIDTH 12.7 % (11.5-14.5)
[2017-08-28 08:44] LABS: CREATININE 1.13 mg/dl (0.61-1.24); POTASSIUM 4.2 mmol/L (3.5-5.1)
[2017-08-28] MEDS: TRIMETHOPRIM/SULFAMETHOX (DS) TAB PO SCH (09:51)
[2017-08-28] MEDS: HEPARIN 5,000 UNIT/0.5 ML VIAL SC SCH ×2 (09:58→20:52)
[2017-08-28] MEDS ORDERED: VANCOMYCIN IV PER PHARMACY XX SCH (10:30)
[2017-08-28] MEDS: ACETAMINOPHEN 325 MG TAB PO PRN ×2 (11:06→20:54)
--- NOTE | 2017-08-28 12:30 | CONS ---
Date/Time of Note Date/Time of Note DATE: 08/28/17 TIME: 12:29 Consult Date/Type/Reason Admit Date/Time Aug 23, 2017 at 12:37 Type of Consultation: ID Objective Vital Signs Date Time Temp Pulse Resp B/P Pulse Ox O2 Delivery O2 Flow Rate FiO2 08/28/17 12:03 89 08/28/17 11:48 97.7 18 102/59 99 08/24/17 08:32 Nasal Cannula 1.0 Intake and Output 08/27/17 08/27/17 08/28/17 15:00 23:00 07:00 Intake Total 1200 ml 800 ml Output Total 1500 ml 900 ml Balance -300 ml -100 ml Results/Medications Result Diagram: 08/28/17 0749 08/28/17 0749 Results 24 hrs Laboratory Tests Test 08/28/17 07:49 White Blood Count 19.0 H Red Blood Count 4.95 Hemoglobin 15.6 Hematocrit 46.2 Mean Corpuscular Volume 93.3 Mean Corpuscular Hemoglobin 31.5 Mean Corpuscular Hemoglobin Concent 33.8 Red Cell Distribution Width 12.7 Platelet Count 381 Mean Platelet Volume 9.3 Neutrophils % 58.2 Lymphocytes % 17.9 Monocytes % 8.0 Eosinophils % 2.0 Basophils % 0.4 Nucleated Red Blood Cells % 0.0 Neutrophils # 11.1 H Lymphocytes # 3.4 H Monocytes # 1.5 H Eosinophils # 0.4 Basophils # 0.1 Nucleated Red Blood Cells # 0.0 Sodium Level 142 Potassium Level 4.2 Chloride Level 106 Carbon Dioxide Level 28 Anion Gap 12 Blood Urea Nitrogen 13 Creatinine 1.13 Glucose Level 97 Calcium Level 9.0 Medications Current Medications Ondansetron HCl (Zofran Inj) 4 mg Q6H PRN IV NAUSEA AND/OR VOMITING; Start 07/30 at 15:00 Acetaminophen (Tylenol Tab) 650 mg Q6H PRN PO PAIN LEVEL 1-3 OR FEVER Last administered on 08/28/17 11:06; Admin Dose 650 MG; Start 08/23/17 at 15:00 Acetaminophen/ Hydrocodone Bitart ([place] (5/325)) 1 tab Q6H PRN PO MODERATE PAIN LEVEL 4-6 Last administered on 08/27/17 21:01; Admin Dose 1 TAB; Start 08/23/17 at 15:00 Morphine Sulfate (morphine) 2 mg Q4H PRN IV SEVERE PAIN LEVEL 7-10 Last administered on 08/26/17 09:20; Admin Dose 2 MG; Start 08/23/17 at 15:00 Docusate Sodium (Colace) 100 mg Q12H PRN PO CONSTIPATION Last administered on 08/26/17 09:20; Admin Dose 100 MG; Start 08/23/17 at 15:00 Magnesium Hydroxide (Milk Of Mag) 30 ml DAILY PRN PO CONSTIPATION; Start 08/23 at 15:00 Sodium Biphosphate/ Sodium Phosphate (Fleet Enema) 133 ml DAILY PRN [place] CONSTIPATION; Start 08/23/17 at 15:00 Heparin Sodium (Porcine) (Heparin (5000 Units/0.5 ml)) 5,000 unit Q12 SC Last administered on 08/28/17 09:58; Admin Dose 5,000 UNIT; Start 08/23/17 at 21: 00 Hydralazine HCl (Apresoline) 10 mg Q6H PRN IV ELEVATED BLOOD PRESSURE; Start 08/23/17 at 15:00 Clonidine (Catapres) 0.1 mg Q6H PRN PO ELEVATED BLOOD PRESSURE; Start at 15:00 Nitroglycerin 1 tab 1 tab Q5M PRN SL ANGINA; Start 08/23/17 at 15:00 Vancomycin HCl (Vancocin) 250 ml @ 125 mls/hr Q8H IVPB ; Start 08/28/17 at 12: 00 Assessment/Plan Chief Complaint/Hosp Course SUBJECTIVE: No events overnight. Patient is alert, feels good, no fevers. MICROBIOLOGY: Blood and urine cultures remain negative. ALL: Zosyn ANTIMICROBIALS: Vanco PHYSICAL EXAMINATION: GENERAL: Well-nourished, well-developed, middle-aged man who is alert, in no distress. HEENT: Head atraumatic, normocephalic. Sclerae anicteric. Buccal mucosa pink. NECK: Supple. CHEST: Rise symmetrical. Breath sounds clear. HEART: S1, S2. ABDOMEN: Soft, bowel tones present. EXTREMITIES: LLE looks much better ASSESSMENT: 1. Left lower extremity cellulitis==> resolving. 2. Systemic inflammatory response syndrome with persistent leukocytosis 2 to # 3. 3. Left patellar abscess PLAN: The patient remains stable. Continue abx, pending abscess drainage, f/u surgical rec-s DW staff Problems: ISMAIL-ZADE,NERA [employer] REVIEWER Aug 28, 2017 12:30
[2017-08-28] MEDS: VANCOMYCIN 1 GM in NS 250 ML IVPB SCH ×2 (13:06→20:42)
--- NOTE | 2017-08-28 13:08 | PN ---
Date/Time of Note Date/Time of Note DATE: 08/28/17 TIME: 13:07 Assessment/Plan VTE Prophylaxis VTE Prophylaxis Intervention: SCD's Lines/Catheters IV Catheter Type (from Nrsg): Saline Lock Urinary Cath still in place: No Assessment/Plan Assessment/Plan 32 yo M admitted for sepsis from L knee cellulitis -bactrim changed back to vanc by ID pending fluid sampling -IR to aspirate knee today -CM consult based on PT recs downgrade from tele to medsur Subjective 24 Hr Interval Summary Free Text/Dictation Knee imaging with abscess v hematoma Exam/Review of Systems Vital Signs Vitals Vital Signs Date Time Temp Pulse Resp B/P Pulse Ox O2 Delivery O2 Flow Rate FiO2 08/28/17 12:03 89 08/28/17 11:48 97.7 18 102/59 99 08/24/17 08:32 Nasal Cannula 1.0 Intake and Output 08/27/17 08/27/17 08/28/17 15:00 23:00 07:00 Intake Total 1200 ml 800 ml Output Total 1500 ml 900 ml Balance -300 ml -100 ml Exam nad, working on [employer] paperwork no mrg lungs clear abd soft L knee swollen Results Result Diagram: 08/28/17 0749 08/28/17 0749 Results 24 hrs Laboratory Tests Test 08/28/17 07:49 White Blood Count 19.0 H Red Blood Count 4.95 Hemoglobin 15.6 Hematocrit 46.2 Mean Corpuscular Volume 93.3 Mean Corpuscular Hemoglobin 31.5 Mean Corpuscular Hemoglobin Concent 33.8 Red Cell Distribution Width 12.7 Platelet Count 381 Mean Platelet Volume 9.3 Neutrophils % 58.2 Lymphocytes % 17.9 Monocytes % 8.0 Eosinophils % 2.0 Basophils % 0.4 Nucleated Red Blood Cells % 0.0 Neutrophils # 11.1 H Lymphocytes # 3.4 H Monocytes # 1.5 H Eosinophils # 0.4 Basophils # 0.1 Nucleated Red Blood Cells # 0.0 Sodium Level 142 Potassium Level 4.2 Chloride Level 106 Carbon Dioxide Level 28 Anion Gap 12 Blood Urea Nitrogen 13 Creatinine 1.13 Glucose Level 97 Calcium Level 9.0 Medications Medications Current Medications Ondansetron HCl (Zofran Inj) 4 mg Q6H PRN IV NAUSEA AND/OR VOMITING; Start 07/30 at 15:00 Acetaminophen (Tylenol Tab) 650 mg Q6H PRN PO PAIN LEVEL 1-3 OR FEVER Last administered on 08/28/17 11:06; Admin Dose 650 MG; Start 08/23/17 at 15:00 Acetaminophen/ Hydrocodone Bitart ([place] (5/325)) 1 tab Q6H PRN PO MODERATE PAIN LEVEL 4-6 Last administered on 08/27/17 21:01; Admin Dose 1 TAB; Start 08/23/17 at 15:00 Morphine Sulfate (morphine) 2 mg Q4H PRN IV SEVERE PAIN LEVEL 7-10 Last administered on 08/26/17 09:20; Admin Dose 2 MG; Start 08/23/17 at 15:00 Docusate Sodium (Colace) 100 mg Q12H PRN PO CONSTIPATION Last administered on 08/26/17 09:20; Admin Dose 100 MG; Start 08/23/17 at 15:00 Magnesium Hydroxide (Milk Of Mag) 30 ml DAILY PRN PO CONSTIPATION; Start 08/23 at 15:00 Sodium Biphosphate/ Sodium Phosphate (Fleet Enema) 133 ml DAILY PRN [place] CONSTIPATION; Start 08/23/17 at 15:00 Heparin Sodium (Porcine) (Heparin (5000 Units/0.5 ml)) 5,000 unit Q12 SC Last administered on 08/28/17 09:58; Admin Dose 5,000 UNIT; Start 08/23/17 at 21: 00 Hydralazine HCl (Apresoline) 10 mg Q6H PRN IV ELEVATED BLOOD PRESSURE; Start 08/23/17 at 15:00 Clonidine (Catapres) 0.1 mg Q6H PRN PO ELEVATED BLOOD PRESSURE; Start at 15:00 Nitroglycerin 1 tab 1 tab Q5M PRN SL ANGINA; Start 08/23/17 at 15:00 Vancomycin HCl (Vancocin) 250 ml @ 125 mls/hr Q8H IVPB ; Start 08/28/17 at 12: 00 MELISSA MARKS MD Aug 28, 2017 13:08
[2017-08-28] MEDS ORDERED: LIDOCAINE 1% (MDV) 20 ML INJ ONE ×3 (15:50→16:33)
[2017-08-28 16:54] LABS: FLD COLOR RED; FLD TYPE OTHERS
[2017-08-28 16:55] LABS: FLD CLARITY BLOODY; FLD VOLUME 0.5 ml
--- NOTE | 2017-08-28 17:17 | RADRPT ---
PROCEDURE: Ultrasound guided left knee joint aspiration. CLINICAL INDICATION: Left knee joint effusion. TECHNIQUE: Prior to the procedure, informed consent was obtained. Risks including bleeding and in fection were explained to the patient. The patient understood was willing to proceed. A procedural pause was performed. The patient's name, date of , and procedure to be performed were verifie d. Using local anesthetic, sterile technique and ultrasound guidance, a 21-gauge needle was advanced in to the left knee joint. Approximately 2 ml of sanguineous fluid was aspirated. The fluid was sent fo r culture and sensitivity. The patient tolerated the procedure well. COMPARISON: Left knee ultrasound dated 08/28/2017. FINDINGS: Images demonstrate the needle within the left knee joint fluid collection. IMPRESSION: 1. Satisfactory ultrasound-guided left knee joint fluid collection aspiration. RPTAT: QQ .Trent Keller MD, Date Time Electronically viewed and signed by .Trent Keller MD, on 08/28/2017 17:17 .R/
--- NOTE | 2017-08-28 18:33 | PN ---
Date/Time of Note Date/Time of Note DATE: 08/28/17 TIME: 18:30 Assessment/Plan Lines/Catheters IV Catheter Type (from Nrs): Saline Lock Strong in Place (from Nrs): No Assessment/Plan Assessment/Plan [facility] Progress Note Date of Service: 08/28/2017 Location of Service: Fifth floor telemetry Today's Assessment & Plan: Overall stable and doing well. Left leg appears to be much improved. No evidence for necrotizing fasciitis. This appears to be severe cellulitis which seems to be responding to antimicrobial management and current cares. No indication for acute surgical intervention. Small amount of superficial fluid accumulation which appears to be above where the patella is can best be drained using interventional radiology and does not currently require surgical intervention. Surgical intervention in this area also is complicated by tension that is put on the skin in that region to the joint underneath it. If surgery can be avoided, the results are better. Explained to patient (no family in the room) and answered all questions. Patient appeared to understand and agreed with plans. Previous assessments that applies today: A very-pleasant and otherwise seemingly healthy 32-year-old gentleman presenting with moderate to severe cellulitis around his left knee. Patient's clinical picture as well as his LRINEC score of 5 indicates severe cellulitis and low probability for necrotizing fasciitis. His ultrasound shows soft tissue stranding and no obvious abscess (final report pending). We are awaiting his CT scan of the left knee area. I recommended hospitalization as well as aggressive medical management, and will make further decisions regarding operative assessment of the lesion after CT scan was done. Fortunately, CT did not suggest further evidence for necrotizing fasciitis. With above assessment, I've recommended the followin. Continue current cares 2. Continue monitoring the borders of the erythema on the left knee 3. Increase activity 4. Continue intravenous antimicrobials and converted to orals perhaps today or tomorrow; follow Dr. Spain's excellent directions 5. Once d/c'd, please have patient follow up with PCP 6. Agree with IR drainage of fluid collection Thank you very much for having me involved in the care of this very pleasant patient and wonderful family. If you have any questions, please feel free to contact me at [phone]. Nature of presenting problem: High severity Please note that, given the multiple number of diagnoses or management options, the moderate amount and/or complexity of data needed to be reviewed, and I risk of complications and/or morbidity or mortality, this qualifies as high complexity type of decision-making. Disclaimers: 1. Inadvertent spelling and grammatical errors are likely due to electronic health record (EHR)/dictation software used and do not reflect on the quality of delivered patient care. 2. The electronic timestamp recorded on this note does not necessarily reflect the actual date and time of the visit or the service. 3. Portions of this note may have been created through electronic templates and computer algorithms that might bring in information either from the system or from other physicians and providers. Please note that such information may or may not contain errors, the occurrence of which are outside of my control. In general (but not always) this happens either in the beginning or at the end of the note. The portion of the note that I have created are generally done in 1 continuous block of text, flanked at the beginning and at the end by " ", and entered into one field in the EHR. 4. There may be other unanticipated errors in the note that are outside of my control. I can only attest to the portions of the note that I have created. Updated clinical summary: A very-pleasant and otherwise seemingly healthy 32-year-old gentleman presenting with moderate to severe cellulitis around his left knee. Much improved after broad-spectrum antimicrobial coverage in-house. Developed a small fluid collection in the sub-cutaneous space above the patella bone of the left knee. Comorbidities: 1. Cocaine use in the past. Quit several years ago 2. Status post laparoscopic appendectomy [facility] [address]. Alcaraz Subjective: No major events or complaints; reports feeling much better with no further chills and overall improvement. + bowel activity; minimal activity Objective: Vitals: See below Exam: GENERAL: On exam, the patient was laying in bed and appeared to be comfortable and in no acute distress. ABDOMEN: Soft, nontender and nondistended. There are no peritoneal signs or guarding. EXTREMITIES: Skin overlying the left knee area is essentially not erythematous and there is no sig calor to touch. The skin below the knee is normal. The skin overlying the thigh regions is essentially no longer hyperemic with complete resolution of the rash. Calf compartments as well as the thigh compartments are all soft and nontender. Patient sensation in the lower extremity is normal. Otherwise normal exam and lower extremities contain no pitting edema around the ankles bilaterally and symmetrically. Slight fluctuance of the skin overlying the left patella is noted. SKIN: Skin appears to be pink and feels warm to touch. NEUROLOGIC: Patient is awake, alert, and follows commands appropriately. Exam/Review of Systems Vital Signs Vitals Vital Signs Date Time Temp Pulse Resp B/P Pulse Ox O2 Delivery O2 Flow Rate FiO2 08/28/17 17:36 98.3 80 16 101/55 97 08/24/17 08:32 Nasal Cannula 1.0 Intake and Output 08/27/17 08/27/17 08/28/17 15:00 23:00 07:00 Intake Total 1200 ml 800 ml Output Total 1500 ml 900 ml Balance -300 ml -100 ml Results Result Diagram: 08/28/17 0749 08/28/17 0749 LIANG FRANCIS M.D. Aug 28, 2017 18:33
[2017-08-29 02:35] VITALS: BP 91/53; RESP 16
[2017-08-29] MEDS: VANCOMYCIN 1 GM in NS 250 ML IVPB SCH ×2 (03:49→11:42)
[2017-08-29 05:37] LABS: ABNORMAL IP MESSAGE 1; BASOPHIL # 0.1 10^3/ul (0.0-0.1); BASOPHILS % 0.4 % (0.0-2.0); EOSINOPHILS # 0.4 10^3/ul (0.0-0.5); EOSINOPHILS % 2.2 % (0.0-7.0); HEMATOCRIT 44.4 % (42.0-52.0); HEMOGLOBIN 15.2 g/dl (14.0-18.0); LYMPHOCYTES # 3.7 10^3/ul (0.8-2.9); LYMPHOCYTES % 19.2 % (15.0-51.0); MEAN CORPUSCULAR HEMOGLOBIN 31.9 pg (29.0-33.0); MEAN CORPUSCULAR HGB CONC 34.2 g/dl (32.0-37.0); MEAN CORPUSCULAR VOLUME 93.1 fl (82.0-101.0); MEAN PLATELET VOLUME 9.1 fl (7.4-10.4); MONOCYTE # 1.5 10^3/ul (0.3-0.9); MONOCYTES % 7.5 % (0.0-11.0); NEUTROPHILS % 56.5 % (39.0-77.0); PLATELET COUNT 364 10^3/UL (140-415); POSITIVE DIFF @See below; RED BLOOD COUNT 4.77 10^6/ul (4.70-6.10); RED CELL DISTRIBUTION WIDTH 12.8 % (11.5-14.5); WHITE BLOOD COUNT 19.5 10^3/ul (4.8-10.8)
[2017-08-29 06:37] LABS: CALCIUM 8.9 mg/dl (8.4-10.2)
[2017-08-29 07:25] VITALS: BP 97/56; PULSE 64; RESP 18
[2017-08-29] MEDS: HEPARIN 5,000 UNIT/0.5 ML VIAL SC SCH ×2 (09:49→21:28)
--- NOTE | 2017-08-29 14:13 | CONS ---
Date/Time of Note Date/Time of Note DATE: 08/29/17 TIME: 14:10 Consult Date/Type/Reason Admit Date/Time Aug 23, 2017 at 12:37 Type of Consultation: ID Objective Vital Signs Date Time Temp Pulse Resp B/P Pulse Ox O2 Delivery O2 Flow Rate FiO2 08/29/17 07:25 97.6 64 18 97/56 98 Room Air Intake and Output 08/28/17 08/28/17 08/29/17 15:00 23:00 07:00 Intake Total 490 ml 610 ml Balance 490 ml 610 ml Results/Medications Result Diagram: 08/29/1751108/29/17511 Results 24 hrs Laboratory Tests Test 08/28/17 16:00 08/29/17 05:12 08/29/17 11:09 Body Fluid Type OTHERS Body Fluid Volume 0.5 Body Fluid Color RED Body Fluid Appearance BLOODY Body Fluid WBC Body Fluid RBC (Auto) Body Fluid Polynuclear WBCs (%) 78.0 Body Fluid Mononuclear Cells % Auto 22.0 White Blood Count 19.5 H Red Blood Count 4.77 Hemoglobin 15.2 Hematocrit 44.4 Mean Corpuscular Volume 93.1 Mean Corpuscular Hemoglobin 31.9 Mean Corpuscular Hemoglobin Concent 34.2 Red Cell Distribution Width 12.8 Platelet Count 364 Mean Platelet Volume 9.1 Neutrophils % 56.5 Lymphocytes % 19.2 Monocytes % 7.5 Eosinophils % 2.2 Basophils % 0.4 Nucleated Red Blood Cells % 0.0 Neutrophils # 11.0 H Lymphocytes # 3.7 H Monocytes # 1.5 H Eosinophils # 0.4 Basophils # 0.1 Nucleated Red Blood Cells # 0.0 Sodium Level 142 Potassium Level 4.0 Chloride Level 107 Carbon Dioxide Level 25 Anion Gap 14 Blood Urea Nitrogen 12 Creatinine 1.00 Glucose Level 94 Calcium Level 8.9 Vancomycin Level Trough 12.2 Medications Current Medications Ondansetron HCl (Zofran Inj) 4 mg Q6H PRN IV NAUSEA AND/OR VOMITING; Start 07/30 at 15:00 Acetaminophen (Tylenol Tab) 650 mg Q6H PRN PO PAIN LEVEL 1-3 OR FEVER Last administered on 08/28/17t 20:54; Admin Dose 650 MG; Start 08/23/17 at 15:00 Acetaminophen/ Hydrocodone Bitart ([place] (5/325)) 1 tab Q6H PRN PO MODERATE PAIN LEVEL 4-6 Last administered on 08/27/17 21:01; Admin Dose 1 TAB; Start 08/23/17 at 15:00 Morphine Sulfate (morphine) 2 mg Q4H PRN IV SEVERE PAIN LEVEL 7-10 Last administered on 08/26/17 09:20; Admin Dose 2 MG; Start 08/23/17 at 15:00 Docusate Sodium (Colace) 100 mg Q12H PRN PO CONSTIPATION Last administered on 08/26/17 09:20; Admin Dose 100 MG; Start 08/23/17 at 15:00 Magnesium Hydroxide (Milk Of Mag) 30 ml DAILY PRN PO CONSTIPATION Last administered on 08/29/17 11:56; Admin Dose 30 ML; Start 08/23/17 at 15:00 Sodium Biphosphate/ Sodium Phosphate (Fleet Enema) 133 ml DAILY PRN [place] CONSTIPATION; Start 08/23/17 at 15:00 Heparin Sodium (Porcine) (Heparin (5000 Units/0.5 ml)) 5,000 unit Q12 SC Last administered on 08/29/17 09:49; Admin Dose 5,000 UNIT; Start 08/23/17 at 21: 00 Hydralazine HCl (Apresoline) 10 mg Q6H PRN IV ELEVATED BLOOD PRESSURE; Start 08/23/17 at 15:00 Clonidine (Catapres) 0.1 mg Q6H PRN PO ELEVATED BLOOD PRESSURE; Start at 15:00 Nitroglycerin 1 tab 1 tab Q5M PRN SL ANGINA; Start 08/23/17 at 15:00 Vancomycin HCl (Vancocin) 250 ml @ 125 mls/hr Q8H IVPB Last administered on 11:42; Admin Dose 125 MLS/HR; Start 08/28/17 at 12:00 Assessment/Plan Chief Complaint/Hosp Course SUBJECTIVE: No events overnight. Patient is alert, feels better, able to walk , no fevers. MICROBIOLOGY: Blood and urine cultures remain negative, aspirated fluid cx pending. ALL: Zosyn ANTIMICROBIALS: Vanco PHYSICAL EXAMINATION: GENERAL: Well-nourished, well-developed, middle-aged man who is alert, in no distress. HEENT: Head atraumatic, normocephalic. Sclerae anicteric. Buccal mucosa pink. NECK: Supple. CHEST: Rise symmetrical. Breath sounds clear. HEART: S1, S2. ABDOMEN: Soft, bowel tones present. EXTREMITIES: LLE looks better, erythema over patella, decreased fluctuance ASSESSMENT: 1. Left lower extremity cellulitis==> resolving. 2. Systemic inflammatory response syndrome with persistent leukocytosis 2 to # 3. 3. Left patellar fluid collection, s/p needle aspiration PLAN: Leukocytosis persists, however patient looks fine, fluid cx pending, knee looks better, will change abx to Bactrim and Levaquin until cx's back. Will order CXR DW pt Problems: JOO CARLIN NP Aug 29, 2017 14:13
[2017-08-29 14:17] VITALS: BP 96/55; RESP 18
[2017-08-29] MEDS ORDERED: LEVOFLOXACIN 500 MG TAB PO ONE (14:30)
[2017-08-29] MEDS: TRIMETHOPRIM/SULFAMETHOX (DS) TAB PO SCH ×2 (14:43→21:25)
--- NOTE | 2017-08-29 14:46 | RADRPT ---
PROCEDURE: Chest x-ray CLINICAL INDICATION: Shortness of breath TECHNIQUE: Chest single view COMPARISON: 08/23/2017 FINDINGS: The heart is normal in size. The pulmonary vessels are normal in caliber. The lungs are clear. Th e costophrenic angles are sharp. The visualized bony thorax is unremarkable. IMPRESSION: No acute cardiopulmonary disease. RPTAT: HH .Iftikhar Sun MD, MD Date Time Electronically viewed and signed by .Iftikhar Sun MD, MD on 08/29/2017 14:46 .W/
--- NOTE | 2017-08-29 15:10 | PN ---
Date/Time of Note Date/Time of Note DATE: 08/29/17 TIME: 15:07 Assessment/Plan VTE Prophylaxis VTE Prophylaxis Intervention: SCD's Lines/Catheters IV Catheter Type (from Nrs): Mid Line Urinary Cath still in place: No Assessment/Plan Assessment/Plan 32 yo M admitted for sepsis from L knee cellulitis with fluid collection. sp fluid sampling 11.15, abscess v hematoma. Fluid with PMN predominance but cell count unable to be performed. culture no growth to day -abx changed to PO bactrim/levo by ID. culture still in process Exam/Review of Systems Vital Signs Vitals Vital Signs Date Time Temp Pulse Resp B/P Pulse Ox O2 Delivery O2 Flow Rate FiO2 08/29/17 14:17 98.3 83 18 96/55 99 08/29/17 07:25 Room Air Intake and Output 08/28/17 08/28/17 08/29/17 15:00 23:00 07:00 Intake Total 490 ml 610 ml Balance 490 ml 610 ml Results Result Diagram: 08/29/1712 08/29/17 0512 Results 24 hrs Laboratory Tests Test 08/28/17 16:00 08/29/17 05:12 08/29/17 11:09 Body Fluid Type OTHERS Body Fluid Volume 0.5 Body Fluid Color RED Body Fluid Appearance BLOODY Body Fluid WBC Body Fluid RBC (Auto) Body Fluid Polynuclear WBCs (%) 78.0 Body Fluid Mononuclear Cells % Auto 22.0 White Blood Count 19.5 H Red Blood Count 4.77 Hemoglobin 15.2 Hematocrit 44.4 Mean Corpuscular Volume 93.1 Mean Corpuscular Hemoglobin 31.9 Mean Corpuscular Hemoglobin Concent 34.2 Red Cell Distribution Width 12.8 Platelet Count 364 Mean Platelet Volume 9.1 Neutrophils % 56.5 Lymphocytes % 19.2 Monocytes % 7.5 Eosinophils % 2.2 Basophils % 0.4 Nucleated Red Blood Cells % 0.0 Neutrophils # 11.0 H Lymphocytes # 3.7 H Monocytes # 1.5 H Eosinophils # 0.4 Basophils # 0.1 Nucleated Red Blood Cells # 0.0 Sodium Level 142 Potassium Level 4.0 Chloride Level 107 Carbon Dioxide Level 25 Anion Gap 14 Blood Urea Nitrogen 12 Creatinine 1.00 Glucose Level 94 Calcium Level 8.9 Vancomycin Level Trough 12.2 Medications Medications Current Medications Ondansetron HCl (Zofran Inj) 4 mg Q6H PRN IV NAUSEA AND/OR VOMITING; Start 07/30 at 15:00 Acetaminophen (Tylenol Tab) 650 mg Q6H PRN PO PAIN LEVEL 1-3 OR FEVER Last administered on 08/28/17 20:54; Admin Dose 650 MG; Start 08/23/17 at 15:00 Acetaminophen/ Hydrocodone Bitart ([place] (5/325)) 1 tab Q6H PRN PO MODERATE PAIN LEVEL 4-6 Last administered on 08/27/17 21:01; Admin Dose 1 TAB; Start 08/23/17 at 15:00 Morphine Sulfate (morphine) 2 mg Q4H PRN IV SEVERE PAIN LEVEL 7-10 Last administered on 08/26/17 09:20; Admin Dose 2 MG; Start 08/23/17 at 15:00 Docusate Sodium (Colace) 100 mg Q12H PRN PO CONSTIPATION Last administered on 08/26/17 09:20; Admin Dose 100 MG; Start 08/23/17 at 15:00 Magnesium Hydroxide (Milk Of Mag) 30 ml DAILY PRN PO CONSTIPATION Last administered on 08/29/17 11:56; Admin Dose 30 ML; Start 08/23/17 at 15:00 Sodium Biphosphate/ Sodium Phosphate (Fleet Enema) 133 ml DAILY PRN [place] CONSTIPATION; Start 08/23/17 at 15:00 Heparin Sodium (Porcine) (Heparin (5000 Units/0.5 ml)) 5,000 unit Q12 SC Last administered on 08/29/17 09:49; Admin Dose 5,000 UNIT; Start 08/23/17 at 21: 00 Hydralazine HCl (Apresoline) 10 mg Q6H PRN IV ELEVATED BLOOD PRESSURE; Start 08/23/17 at 15:00 Clonidine (Catapres) 0.1 mg Q6H PRN PO ELEVATED BLOOD PRESSURE; Start at 15:00 Nitroglycerin (Nitroglycerin (Sl Tab) 0.4 Mg) 1 tab Q5M PRN SL ANGINA; Start 08/23/17 at 15:00 Trimethoprim/ Sulfamethoxazole (Bactrim (Ds)) 1 tab BID PO Last administered on 08/29/17 14:43; Admin Dose 1 TAB; Start 08/29/17 at 14:30 Levofloxacin (Levaquin) 500 mg DAILY@06 PO ; Start 08/30/17 at 06:00 MELISSA MARKS MD Aug 29, 2017 15:10
[2017-08-29 15:40] VITALS: BP 106/60; RESP 18
[2017-08-29 19:39] VITALS: BP 107/67; PULSE 71; RESP 16
--- NOTE | 2017-08-29 20:16 | PN ---
Date/Time of Note Date/Time of Note DATE: 08/29/17 TIME: 20:14 Assessment/Plan Lines/Catheters IV Catheter Type (from Nrs): Mid Line Strong in Place (from Nrs): No Assessment/Plan Assessment/Plan [facility] Progress Note Date of Service: 08/29/2017 Location of Service: Fifth floor telemetry Today's Assessment & Plan: Overall stable and doing well. Left leg appears to be much improved, especially after percutaneous drainage procedure. No evidence for necrotizing fasciitis. This appears to be severe cellulitis which seems to be responding to antimicrobial management and current cares. No indication for acute surgical intervention. Explained to patient (no family in the room) and answered all questions. Patient appeared to understand and agreed with plans. Previous assessments that applies today: A very-pleasant and otherwise seemingly healthy 32-year-old gentleman presenting with moderate to severe cellulitis around his left knee. Patient's clinical picture as well as his LRINEC score of 5 indicates severe cellulitis and low probability for necrotizing fasciitis. His ultrasound shows soft tissue stranding and no obvious abscess (final report pending). We are awaiting his CT scan of the left knee area. I recommended hospitalization as well as aggressive medical management, and will make further decisions regarding operative assessment of the lesion after CT scan was done. Fortunately, CT did not suggest further evidence for necrotizing fasciitis. With above assessment, I've recommended the followin. Continue current cares 2. Continue monitoring the borders of the erythema on the left knee 3. Increase activity 4. Continue intravenous antimicrobials and converted to orals perhaps today or tomorrow; follow Dr. Spain's excellent directions 5. Once d/c'd, please have patient follow up with PCP Thank you very much for having me involved in the care of this very pleasant patient and wonderful family. If you have any questions, please feel free to contact me at [phone]. Nature of presenting problem: High severity Please note that, given the multiple number of diagnoses or management options, the moderate amount and/or complexity of data needed to be reviewed, and I risk of complications and/or morbidity or mortality, this qualifies as high complexity type of decision-making. Disclaimers: 1. Inadvertent spelling and grammatical errors are likely due to electronic health record (EHR)/dictation software used and do not reflect on the quality of delivered patient care. 2. The electronic timestamp recorded on this note does not necessarily reflect the actual date and time of the visit or the service. 3. Portions of this note may have been created through electronic templates and computer algorithms that might bring in information either from the system or from other physicians and providers. Please note that such information may or may not contain errors, the occurrence of which are outside of my control. In general (but not always) this happens either in the beginning or at the end of the note. The portion of the note that I have created are generally done in 1 continuous block of text, flanked at the beginning and at the end by " ", and entered into one field in the EHR. 4. There may be other unanticipated errors in the note that are outside of my control. I can only attest to the portions of the note that I have created. Updated clinical summary: A very-pleasant and otherwise seemingly healthy 32-year-old gentleman presenting with moderate to severe cellulitis around his left knee. Much improved after broad-spectrum antimicrobial coverage in-house. Developed a small fluid collection in the sub-cutaneous space above the patella bone of the left knee. Status post IR drainage 08/28/2017. Comorbidities: 1. Cocaine use in the past. Quit several years ago 2. Status post laparoscopic appendectomy [facility] [address] Alcaraz Subjective: No major events or complaints except for above; reports feeling well. Able to ambulate without significant pain in his knee. + bowel activity; + activity Objective: Vitals: See below Exam: GENERAL: On exam, the patient was laying in bed and appeared to be comfortable and in no acute distress. ABDOMEN: Soft, nontender and nondistended. There are no peritoneal signs or guarding. EXTREMITIES: Skin overlying the left knee area is essentially not erythematous and there is no sig calor to touch. The skin below the knee is normal. The skin overlying the thigh regions is essentially no longer hyperemic with complete resolution of the rash. Calf compartments as well as the thigh compartments are all soft and nontender. Patient sensation in the lower extremity is normal. Otherwise normal exam and lower extremities contain no pitting edema around the ankles bilaterally and symmetrically. Slight fluctuance of the skin overlying the left patella is noted. SKIN: Skin appears to be pink and feels warm to touch. NEUROLOGIC: Patient is awake, alert, and follows commands appropriately. Exam/Review of Systems Vital Signs Vitals Vital Signs Date Time Temp Pulse Resp B/P Pulse Ox O2 Delivery O2 Flow Rate FiO2 08/29/17 19:39 97.4 71 16 107/67 99 08/29/17 07:25 Room Air Intake and Output 08/28/17 08/28/17 08/29/17 15:00 23:00 07:00 Intake Total 490 ml 610 ml Balance 490 ml 610 ml Results Result Diagram: 08/29/17 0512 08/29/17 0512 LIANG FRANCIS M.D. Aug 29, 2017 20:16
[2017-08-29] MEDS: HYDROCODONE/APAP (5/325) TAB PO PRN (21:58)
[2017-08-30 02:17] VITALS: BP 97/57; RESP 18
[2017-08-30] MEDS: LEVOFLOXACIN 500 MG TAB PO SCH (05:36)
[2017-08-30 06:14] LABS: ABNORMAL IP MESSAGE 1; BASOPHIL # 0.1 10^3/ul (0.0-0.1); BASOPHILS % 0.4 % (0.0-2.0); EOSINOPHILS # 0.3 10^3/ul (0.0-0.5); EOSINOPHILS % 1.9 % (0.0-7.0); HEMATOCRIT 46.1 % (42.0-52.0); HEMOGLOBIN 15.8 g/dl (14.0-18.0); LYMPHOCYTES # 4.1 10^3/ul (0.8-2.9); LYMPHOCYTES % 22.9 % (15.0-51.0); MEAN CORPUSCULAR HEMOGLOBIN 31.9 pg (29.0-33.0); MEAN CORPUSCULAR HGB CONC 34.3 g/dl (32.0-37.0); MEAN CORPUSCULAR VOLUME 93.1 fl (82.0-101.0); MEAN PLATELET VOLUME 9.3 fl (7.4-10.4); MONOCYTE # 1.3 10^3/ul (0.3-0.9); MONOCYTES % 7.1 % (0.0-11.0); NEUTROPHILS % 56.2 % (39.0-77.0); PLATELET COUNT 380 10^3/UL (140-415); POSITIVE DIFF @See below; RED BLOOD COUNT 4.95 10^6/ul (4.70-6.10); RED CELL DISTRIBUTION WIDTH 12.8 % (11.5-14.5); WHITE BLOOD COUNT 17.7 10^3/ul (4.8-10.8)
[2017-08-30 06:44] LABS: CALCIUM 9.4 mg/dl (8.4-10.2); CREATININE 1.12 mg/dl (0.61-1.24); POTASSIUM 4.3 mmol/L (3.5-5.1)
[2017-08-30 07:32] VITALS: BP 97/65; PULSE 66; RESP 18
[2017-08-30 07:50] VITALS: BP 97/55; RESP 18
[2017-08-30] MEDS: TRIMETHOPRIM/SULFAMETHOX (DS) TAB PO SCH (08:34)
[2017-08-30] MEDS: HEPARIN 5,000 UNIT/0.5 ML VIAL SC SCH ×2 (08:45→21:29)
[2017-08-30 08:52] LABS: EOSINOPHILS % (M) 1 % (0-7); GIANT THROMBO% (M) 1 % (0-0); METAMYELOCYTES %M 5 % (0-0); MONOCYTES % (M) 9 % (0-11); MYELOCYTES % (M) 3 % (0-0); PLATELET ESTIMATE NORMAL; POLYCHROMASIA 2+ (0-0); REACTIVE LYMPHOCYTES% (M) 1 % (0-0)
--- NOTE | 2017-08-30 13:02 | PN ---
Date/Time of Note Date/Time of Note DATE: 08/30/17 TIME: 13:00 Assessment/Plan VTE Prophylaxis VTE Prophylaxis Intervention: SCD's Lines/Catheters IV Catheter Type (from Nrsg): Mid Line Urinary Cath still in place: No Assessment/Plan Assessment/Plan 32 yo M admitted for sepsis from L knee cellulitis with fluid collection. sp fluid sampling 11.15, abscess v hematoma. Fluid with PMN predominance but cell count unable to be performed. culture no growth to day -abx as per ID -will consult ortho on Saturday for possible I&D Subjective 24 Hr Interval Summary Free Text/Dictation dw general surgery and ID. Still with Knee swelling and fluctuance Exam/Review of Systems Vital Signs Vitals Vital Signs Date Time Temp Pulse Resp B/P Pulse Ox O2 Delivery O2 Flow Rate FiO2 08/30/17 07:50 97.6 66 18 97/55 98 08/30/17 07:32 Room Air Intake and Output 08/29/17 08/29/17 08/30/17 15:00 23:00 07:00 Intake Total 250 ml 1780 ml 800 ml Balance 250 ml 1780 ml 800 ml Exam nad no mrg lungs clear abd soft Knee cellulitis improved but actual knee with fluctuant and limited ROM cultures negative Results Result Diagram: 08/30/17 0534 08/30/17 0534 Results 24 hrs Laboratory Tests Test 08/30/17 05:34 White Blood Count 17.7 H Red Blood Count 4.95 Hemoglobin 15.8 Hematocrit 46.1 Mean Corpuscular Volume 93.1 Mean Corpuscular Hemoglobin 31.9 Mean Corpuscular Hemoglobin Concent 34.3 Red Cell Distribution Width 12.8 Platelet Count 380 Mean Platelet Volume 9.3 Neutrophils % 56.2 Segmented Neutrophils % (Manual) 51 Band Neutrophils % (Manual) 4 Lymphocytes % 22.9 Lymphocytes % (Manual) 26 Reactive Lymphocytes % (Manual) 1 H Monocytes % 7.1 Monocytes % (Manual) 9 Eosinophils % 1.9 Eosinophils % (Manual) 1 Basophils % 0.4 Metamyelocytes % (manual) 5 H Myelocytes % (Manual) 3 H Nucleated Red Blood Cells % 0.0 Neutrophils # 10.0 H Neutrophils # (Manual) 9.2 H Band Neutrophils # 0.7 H Absolute Lymphocytes (Manual) 4.6 H Lymphocytes # 4.1 H Reactive Lymphocytes # 0.1 H Monocytes # 1.3 H Absolute Monocytes (Manual) 1.5 H Eosinophils # 0.3 Basophils # 0.1 Metamyelocytes # 0.8 H Myelocytes # 0.5 H Nucleated Red Blood Cells # 0.0 Platelet Estimate NORMAL Giant Platelets 1 H Polychromasia 2+ Sodium Level 143 Potassium Level 4.3 Chloride Level 105 Carbon Dioxide Level 25 Anion Gap 17 H Blood Urea Nitrogen 17 Creatinine 1.12 Glucose Level 90 Calcium Level 9.4 Medications Medications Current Medications Ondansetron HCl (Zofran Inj) 4 mg Q6H PRN IV NAUSEA AND/OR VOMITING; Start 07/30 at 15:00 Acetaminophen (Tylenol Tab) 650 mg Q6H PRN PO PAIN LEVEL 1-3 OR FEVER Last administered on 08/28/17 20:54; Admin Dose 650 MG; Start 08/23/17 at 15:00 Acetaminophen/ Hydrocodone Bitart ([place] (5/325)) 1 tab Q6H PRN PO MODERATE PAIN LEVEL 4-6 Last administered on 08/29/17 21:58; Admin Dose 1 TAB; Start 08/23/17 at 15:00 Morphine Sulfate (morphine) 2 mg Q4H PRN IV SEVERE PAIN LEVEL 7-10 Last administered on 08/26/17 09:20; Admin Dose 2 MG; Start 08/23/17 at 15:00 Docusate Sodium (Colace) 100 mg Q12H PRN PO CONSTIPATION Last administered on 08/26/17 09:20; Admin Dose 100 MG; Start 08/23/17 at 15:00 Magnesium Hydroxide (Milk Of Mag) 30 ml DAILY PRN PO CONSTIPATION Last administered on 08/29/17 11:56; Admin Dose 30 ML; Start 08/23/17 at 15:00 Sodium Biphosphate/ Sodium Phosphate (Fleet Enema) 133 ml DAILY PRN [place] CONSTIPATION; Start 08/23/17 at 15:00 Heparin Sodium (Porcine) (Heparin (5000 Units/0.5 ml)) 5,000 unit Q12 SC Last administered on 08/30/17 08:45; Admin Dose 5,000 UNIT; Start 08/23/17 at 21: 00 Clonidine (Catapres) 0.1 mg Q6H PRN PO ELEVATED BLOOD PRESSURE; Start at 15:00 Nitroglycerin (Nitroglycerin (Sl Tab) 0.4 Mg) 1 tab Q5M PRN SL ANGINA; Start 08/23/17 at 15:00 Levofloxacin 500 mg 500 mg DAILY@06 PO Last administered on 08/30/17t 05:36; Admin Dose 500 MG; Start 08/30/17 at 06:00 Trimethoprim/ Sulfamethoxazole/ Dextrose (Bactrim/D5W) 260 ml @ 173.333 mls/hr Q12 IVPB ; Start 08/30/17 at 21:00 MELISSA MARKS MD Aug 30, 2017 13:02
[2017-08-30 19:36] VITALS: BP 97/63; PULSE 72; RESP 18
[2017-08-30 20:23] VITALS: BP 97/63; RESP 18
[2017-08-30] MEDS: TRIMETHOPRIM/SULFAMETHOXAZOLE 10 ML in DEXTROSE 5% 250 ML IVPB SCH ×2 (21:00→22:45)
[2017-08-30] MEDS: ACETAMINOPHEN 325 MG TAB PO PRN (22:36)
[2017-08-31 02:36] VITALS: BP 93/59; RESP 16
--- NOTE | 2017-08-31 04:54 | PN ---
DATE: 08/30/2017 SUBJECTIVE: Patient is alert, feels good, able to walk but still with significant swelling over the patellar site with increased fluctuance and persistent erythema. The aspirated knee fluid culture is negative preliminary. WBC 17.7, no shift; however, some bandemia. BUN 17, creatinine 1.2. Ches t x-ray revealed no pneumonia. ANTIMICROBIALS: The patient is on IV Bactrim and levofloxacin. PHYSICAL EXAMINATION: GENERAL: Well-developed, middle-aged man who is alert, in no distress. HEENT: Head atraumatic, normocephalic. Sclerae anicteric. Buccal mucosa pink. NECK: Supple. CHEST: Rise symmetrical. Breath sounds clear. HEART: S1, S2. ABDOMEN: Soft. Bowel tones present. ASSESSMENT: 1. Persistent left knee cellulitis with possible residual abscess, although patient had a fluid asp iration by interventional radiology the day before yesterday and cultures had been negative. 2. Status post left leg cellulitis that is markedly improved and now only concentrated around the k nee site. 3. Persistent leukocytosis secondary to #1. PLAN: The patient is clinically and hemodynamically stable, overall improved; however, again there is fluctuance over the left patella present, concern for abscess. He is on IV Bactrim and oral Leva lorin. Fluid culture so far has been negative. We will keep him on IV antibiotics. If no improveme nt over the weekend then he will require ortho evaluation. Dictated By: JOO CARLIN SURFACE ROOM SHOP OPTICIAN for SABRA MONTESINOS/NTS Conf#: [id number] DID#: [id number]
[2017-08-31 06:22] LABS: ABNORMAL IP MESSAGE 1; BASOPHIL # 0.1 10^3/ul (0.0-0.1); BASOPHILS % 0.3 % (0.0-2.0); EOSINOPHILS # 0.4 10^3/ul (0.0-0.5); EOSINOPHILS % 2.4 % (0.0-7.0); HEMATOCRIT 47.7 % (42.0-52.0); HEMOGLOBIN 16.6 g/dl (14.0-18.0); LYMPHOCYTES % 20.6 % (15.0-51.0); MEAN CORPUSCULAR HGB CONC 34.8 g/dl (32.0-37.0); MEAN CORPUSCULAR VOLUME 91.9 fl (82.0-101.0); MEAN PLATELET VOLUME 9.2 fl (7.4-10.4); MONOCYTE # 1.3 10^3/ul (0.3-0.9); MONOCYTES % 8.6 % (0.0-11.0); NEUTROPHIL # 8.9 10^3/ul (1.6-7.5); NEUTROPHILS % 60.2 % (39.0-77.0); PLATELET COUNT 376 10^3/UL (140-415); POSITIVE DIFF @See below; RED BLOOD COUNT 5.19 10^6/ul (4.70-6.10); RED CELL DISTRIBUTION WIDTH 12.7 % (11.5-14.5); WHITE BLOOD COUNT 14.7 10^3/ul (4.8-10.8)
[2017-08-31] MEDS: LEVOFLOXACIN 500 MG TAB PO SCH (06:41)
[2017-08-31 07:10] LABS: CALCIUM 10.2 mg/dl (8.4-10.2); CREATININE 1.24 mg/dl (0.61-1.24); POTASSIUM 4.9 mmol/L (3.5-5.1)
[2017-08-31 07:26] VITALS: BP 92/52; RESP 16
[2017-08-31] MEDS: TRIMETHOPRIM/SULFAMETHOXAZOLE 10 ML in DEXTROSE 5% 250 ML IVPB SCH (09:38)
[2017-08-31] MEDS: HEPARIN 5,000 UNIT/0.5 ML VIAL SC SCH ×2 (09:46→21:15)
[2017-08-31 14:30] VITALS: BP 92/55; RESP 18
--- NOTE | 2017-08-31 15:12 | CONS ---
Date/Time of Note Date/Time of Note DATE: 08/31/17 TIME: 15:12 Assessment/Plan Assessment/Plan Chief Complaint/Hosp Course ID PROGRESS NOTE CURRENT ABX: DAY # =>Bactrim IV + Levaquin => CHANGE ABX TONIGHT TO CLINDA + CEFTRIAXONE s/p Zosyn -> DC'd due to mild pruritus relieved w/Benadryl 24H INTERVAL SUMMARY * Resting comfortably , afebrile, VSS, NAD, no new c/o, no new issues * CHART REVIEWED: See vitals, labs as per below. * MICRO REVIEWED: 08/28/17 Knee Aspirate: BODY FLUID CULTURE Preliminary Organism 1 STREP PYOGENES (GRP A) QUANTITY RARE PHYSICAL EXAMINATION: GENERAL: VSS, afebrile, NAD HEENT: Unremarkable NECK: Supple, trach midline CHEST: Equal chest rise bilaterally, without dyspnea on observation HEART: RRR ABDOMEN: Soft, NT, ND : FC, clear yellow urine EXT: Warm, BKA SKIN: No rash, no diaphoresis ID ASSESSMENT: 32 yo M admit VPH: 1. Persistent left knee cellulitis, pre-patellar bursitis, with possible residual abscess * 08/28/17 KNEE ASPIRATE: BODY FLUID CULTURE Preliminary Organism 1 STREP PYOGENES (GRP A) QUANTITY RARE 2. Status post left leg cellulitis that is markedly improved and now only concentrated around the knee site. 3. Persistent leukocytosis secondary to #1. 4. Tobacco user => cessation strongly advocated 5. Substance abuse: ETOH + METH abuser ( )MRSA ABX ALLERGIES: ZOSYN => MILD Pruritus relieved w/Benadryl INVASIVES: PIV CURRENT ABX: # =>Bactrim IV + Levaquin => CHANGE ABX TONIGHT TO CLINDA 900mg IV Q8H + CEFTRIAXONE 2gm IV daily (Ok to give w/concern PCN allergy) s/p Zosyn -> DC'd due to mild pruritus relieved w/Benadryl ID RECOMMENDATIONS/PLAN: 1. DC Bactrim + Levaquin => Neither recommended w/Strep Pyogenes -> change to Clindamycin IV + Ceftriaxone (OK to give Ceftriaxone w/concern PCN allergy) 2. ID team consultants will continue to follow . Problems: Consultation Date/Type/Reason Admit Date/Time Aug 23, 2017 at 12:37 Initial Consult Date Type of Consultation: ID Exam/Review of Systems Vital Signs Vitals Vital Signs Date Time Temp Pulse Resp B/P Pulse Ox O2 Delivery O2 Flow Rate FiO2 08/31/17 14:30 97.5 80 18 92/55 98 08/30/17 07:32 Room Air Intake and Output 08/30/17 08/30/17 08/31/17 15:00 23:00 07:00 Intake Total 1320 ml 1100 ml Output Total 1400 ml Balance -80 ml 1100 ml Results Result Diagram: 08/31/17 0538 08/31/17 0538 Results 24 hrs Laboratory Tests Test 08/31/17 05:38 White Blood Count 14.7 H Red Blood Count 5.19 Hemoglobin 16.6 Hematocrit 47.7 Mean Corpuscular Volume 91.9 Mean Corpuscular Hemoglobin 32.0 Mean Corpuscular Hemoglobin Concent 34.8 Red Cell Distribution Width 12.7 Platelet Count 376 Mean Platelet Volume 9.2 Neutrophils % 60.2 Lymphocytes % 20.6 Monocytes % 8.6 Eosinophils % 2.4 Basophils % 0.3 Nucleated Red Blood Cells % 0.0 Neutrophils # 8.9 H Lymphocytes # 3.0 H Monocytes # 1.3 H Eosinophils # 0.4 Basophils # 0.1 Nucleated Red Blood Cells # 0.0 Sodium Level 141 Potassium Level 4.9 Chloride Level 100 Carbon Dioxide Level 28 Anion Gap 18 H Blood Urea Nitrogen 20 Creatinine 1.24 Glucose Level 91 Calcium Level 10.2 Medications Medications Current Medications Ondansetron HCl (Zofran Inj) 4 mg Q6H PRN IV NAUSEA AND/OR VOMITING; Start 07/30 at 15:00 Acetaminophen (Tylenol Tab) 650 mg Q6H PRN PO PAIN LEVEL 1-3 OR FEVER Last administered on 08/30/17 22:36; Admin Dose 650 MG; Start 08/23/17 at 15:00 Acetaminophen/ Hydrocodone Bitart ([place] (5/325)) 1 tab Q6H PRN PO MODERATE PAIN LEVEL 4-6 Last administered on 08/29/17 21:58; Admin Dose 1 TAB; Start 08/23/17 at 15:00 Morphine Sulfate (morphine) 2 mg Q4H PRN IV SEVERE PAIN LEVEL 7-10 Last administered on 08/26/17 09:20; Admin Dose 2 MG; Start 08/23/17 at 15:00 Docusate Sodium (Colace) 100 mg Q12H PRN PO CONSTIPATION Last administered on 08/26/17 09:20; Admin Dose 100 MG; Start 08/23/17 at 15:00 Magnesium Hydroxide (Milk Of Mag) 30 ml DAILY PRN PO CONSTIPATION Last administered on 08/29/17 11:56; Admin Dose 30 ML; Start 08/23/17 at 15:00 Sodium Biphosphate/ Sodium Phosphate (Fleet Enema) 133 ml DAILY PRN [place] CONSTIPATION; Start 08/23/17 at 15:00 Heparin Sodium (Porcine) (Heparin (5000 Units/0.5 ml)) 5,000 unit Q12 SC Last administered on 08/31/17 09:46; Admin Dose 5,000 UNIT; Start 08/23/17 at 21: 00 Nitroglycerin (Nitroglycerin (Sl Tab) 0.4 Mg) 1 tab Q5M PRN SL ANGINA; Start 08/23/17 at 15:00 Levofloxacin 500 mg 500 mg DAILY@06 PO Last administered on 08/31/17 06:41; Admin Dose 500 MG; Start 08/30/17 at 06:00 Trimethoprim/ Sulfamethoxazole/ Dextrose (Bactrim/D5W) 260 ml @ 173.333 mls/hr Q12 IVPB Last administered on 08/31/17 09:38; Admin Dose 173.333 MLS/HR; Start 08/30/17 at 21:00 DAPHNE GOODMAN NP Aug 31, 2017 15:12
--- NOTE | 2017-08-31 18:26 | PN ---
Date/Time of Note Date/Time of Note DATE: 08/31/17 TIME: 18:25 Assessment/Plan VTE Prophylaxis VTE Prophylaxis Intervention: SCD's Lines/Catheters IV Catheter Type (from Nrs): [facility] Urinary Cath still in place: No Assessment/Plan Assessment/Plan 32 yo M admitted for sepsis from L knee cellulitis with fluid collection. sp fluid sampling 11.15, abscess v hematoma. Fluid with PMN predominance but cell count unable to be performed. culture with group A strep, clinical significance personally unclear, given concern for continued abscess -abx as per ID -will consult ortho on Saturday for possible I&D Subjective 24 Hr Interval Summary Free Text/Dictation no complaints. chatting with family Exam/Review of Systems Vital Signs Vitals Vital Signs Date Time Temp Pulse Resp B/P Pulse Ox O2 Delivery O2 Flow Rate FiO2 08/31/17 14:30 97.5 80 18 92/55 98 08/30/17 07:32 Room Air Intake and Output 08/30/17 08/30/17 08/31/17 14:59 22:59 06:59 Intake Total 1320 ml 1100 ml Output Total 1400 ml Balance -80 ml 1100 ml Exam nad resp nonlabored abd soft no rashes Knee swelling unchanged Results Result Diagram: 08/31/17 0538 08/31/17 0538 Results 24 hrs Laboratory Tests Test 08/31/17 05:38 White Blood Count 14.7 H Red Blood Count 5.19 Hemoglobin 16.6 Hematocrit 47.7 Mean Corpuscular Volume 91.9 Mean Corpuscular Hemoglobin 32.0 Mean Corpuscular Hemoglobin Concent 34.8 Red Cell Distribution Width 12.7 Platelet Count 376 Mean Platelet Volume 9.2 Neutrophils % 60.2 Lymphocytes % 20.6 Monocytes % 8.6 Eosinophils % 2.4 Basophils % 0.3 Nucleated Red Blood Cells % 0.0 Neutrophils # 8.9 H Lymphocytes # 3.0 H Monocytes # 1.3 H Eosinophils # 0.4 Basophils # 0.1 Nucleated Red Blood Cells # 0.0 Sodium Level 141 Potassium Level 4.9 Chloride Level 100 Carbon Dioxide Level 28 Anion Gap 18 H Blood Urea Nitrogen 20 Creatinine 1.24 Glucose Level 91 Calcium Level 10.2 Medications Medications Current Medications Ondansetron HCl (Zofran Inj) 4 mg Q6H PRN IV NAUSEA AND/OR VOMITING; Start 07/30 at 15:00 Acetaminophen (Tylenol Tab) 650 mg Q6H PRN PO PAIN LEVEL 1-3 OR FEVER Last administered on 08/30/17 22:36; Admin Dose 650 MG; Start 08/23/17 at 15:00 Acetaminophen/ Hydrocodone Bitart ([place] (5/325)) 1 tab Q6H PRN PO MODERATE PAIN LEVEL 4-6 Last administered on 08/29/17 21:58; Admin Dose 1 TAB; Start 08/23/17 at 15:00 Morphine Sulfate (morphine) 2 mg Q4H PRN IV SEVERE PAIN LEVEL 7-10 Last administered on 08/26/17 09:20; Admin Dose 2 MG; Start 08/23/17 at 15:00 Docusate Sodium (Colace) 100 mg Q12H PRN PO CONSTIPATION Last administered on 08/26/17 09:20; Admin Dose 100 MG; Start 08/23/17 at 15:00 Magnesium Hydroxide (Milk Of Mag) 30 ml DAILY PRN PO CONSTIPATION Last administered on 08/29/17 11:56; Admin Dose 30 ML; Start 08/23/17 at 15:00 Sodium Biphosphate/ Sodium Phosphate (Fleet Enema) 133 ml DAILY PRN [place] CONSTIPATION; Start 08/23/17 at 15:00 Heparin Sodium (Porcine) (Heparin (5000 Units/0.5 ml)) 5,000 unit Q12 SC Last administered on 08/31/17 09:46; Admin Dose 5,000 UNIT; Start 08/23/17 at 21: 00 Nitroglycerin (Nitroglycerin (Sl Tab) 0.4 Mg) 1 tab Q5M PRN SL ANGINA; Start 08/23/17 at 15:00 Levofloxacin 500 mg 500 mg DAILY@06 PO Last administered on 08/31/17 06:41; Admin Dose 500 MG; Start 08/30/17 at 06:00 Trimethoprim/ Sulfamethoxazole/ Dextrose (Bactrim/D5W) 260 ml @ 173.333 mls/hr Q12 IVPB Last administered on 08/31/17 09:38; Admin Dose 173.333 MLS/HR; Start 08/30/17 at 21:00 MELISSA MARKS MD Aug 31, 2017 18:26
[2017-08-31] MEDS ORDERED: CLINDAMYCIN 900 MG/D5W (PMX) 50 ML IVPB SCH ×2 (20:00)
[2017-08-31 20:58] VITALS: BP 105/67; RESP 18
[2017-08-31] MEDS: CLINDAMYCIN 900 MG/D5W (PMX) 50 ML IVPB SCH (21:10)
[2017-08-31] MEDS: CEFTRIAXONE 2 GM/50 ML (PMX) 50 ML IVPB SCH (21:10)
[2017-09-01 02:30] VITALS: BP 99/53; RESP 18
[2017-09-01] MEDS: CLINDAMYCIN 900 MG/D5W (PMX) 50 ML IVPB SCH ×2 (06:22→14:26)
[2017-09-01 08:03] VITALS: BP 79/51; RESP 18
[2017-09-01] MEDS: HEPARIN 5,000 UNIT/0.5 ML VIAL SC SCH ×2 (08:35→20:48)
[2017-09-01 08:42] VITALS: BP 97/57; PULSE 65
[2017-09-01 14:00] VITALS: BP 102/69; PULSE 88; RESP 19
--- NOTE | 2017-09-01 16:24 | CONS ---
Date/Time of Note Date/Time of Note DATE: 09/01/17 TIME: 15:53 Assessment/Plan Assessment/Plan Chief Complaint/Hosp Course ID PROGRESS NOTE CURRENT ABX: DAY # 2=> Clindamycin 900mg IV Q8H + Ceftriaxone 2gm IV daily * s/p Bactrim IV + Levaquin => DC'd 08/31, will not treat Strep Pyo * s/p Zosyn -> DC'd due to mild pruritus relieved w/Benadryl 24H INTERVAL SUMMARY * ABX changed last night due to MICRO result of Strep Pyo -> WBC down today, no fevers * MICRO08/28/17 Knee Aspirate: BODY FLUID CULTURE Organism 1 STREP PYOGENES (GRP A) QUANTITY RARE SOURCE: LEFT KNEE ASPIRATE FLUID ANAEROBIC CULTURE Final No growth at 3 days BODY FLUID CULTURE Final Organism 1 STREP PYOGENES (GRP A) QUANTITY RARE S PYOG (A) Zone Size RX --------- --- * AMPICILLIN S * CEFAZOLIN S * CEFOTAXIME S * CEFUROXIME S * CIPROFLOXACIN I * CLINDAMYCIN I * ERYTHROMYCIN S * PENICILLIN S * VANCOMYCIN S PHYSICAL EXAMINATION: GENERAL: VSS, afebrile, NAD HEENT: Unremarkable NECK: Supple, trach midline CHEST: Equal chest rise bilaterally, without dyspnea on observation HEART: RRR ABDOMEN: Soft, NT, ND : FC, clear yellow urine EXT: Warm, BKA SKIN: No rash, no diaphoresis ID ASSESSMENT: 32 yo M admit VPH: 1. Persistent left knee cellulitis, pre-patellar bursitis, with possible residual abscess * 08/28/17 KNEE ASPIRATE: BODY FLUID CULTURE Final Organism 1 STREP PYOGENES (GRP A) QUANTITY RARE S PYOG (A) Zone Size RX --------- --- * AMPICILLIN S * CEFAZOLIN S * CEFOTAXIME S * CEFUROXIME S * CIPROFLOXACIN I * CLINDAMYCIN I * ERYTHROMYCIN S * PENICILLIN S * VANCOMYCIN S 2. Status post left leg cellulitis that is markedly improved and now only concentrated around the knee site. 3. Persistent leukocytosis secondary to #1. 4. Tobacco user => cessation strongly advocated 5. Substance abuse: ETOH + METH abuser ( )MRSA ABX ALLERGIES: ZOSYN => MILD Pruritus relieved w/Benadryl INVASIVES: PIV CURRENT ABX: DAY # 2=>+ Ceftriaxone 2gm IV daily #2 + START VANCO IV * Clindamycin 900mg IV Q8H => DC today as Strep Pyo is only Intermediate sensitive * s/p Bactrim IV + Levaquin => DC'd 08/31, will not treat Strep Pyo * s/p Zosyn -> DC'd due to mild pruritus relieved w/Benadryl ID RECOMMENDATIONS/PLAN: 1. STREP PYO is only Intermediate sensitive to Clinda => DC Clinda and start Vanco IV 2. Patient w/PCN allergy tolerating Ceftriaxone-> Continue Ceftriaxone 2GM IV daily 3. When infection improves, WBC normalizes -> consider DC on PO ABX Keflex 500mg po Q6H + Azith 500 mg daily x 7 days . Problems: Consultation Date/Type/Reason Admit Date/Time Aug 23, 2017 at 12:37 Type of Consultation: ID Exam/Review of Systems Vital Signs Vitals Vital Signs Date Time Temp Pulse Resp B/P Pulse Ox O2 Delivery O2 Flow Rate FiO2 09/01/17 08:42 65 97/57 09/01/17 08:03 97.9 18 98 08/30/17 07:32 Room Air Intake and Output 08/31/17 08/31/17 09/01/17 15:00 23:00 07:00 Intake Total 260 ml 1720 ml 720 ml Balance 260 ml 1720 ml 720 ml Results Result Diagram: 08/31/17 0538 08/31/17 0538 Medications Medications Current Medications Ondansetron HCl (Zofran Inj) 4 mg Q6H PRN IV NAUSEA AND/OR VOMITING; Start 07/30 at 15:00 Acetaminophen (Tylenol Tab) 650 mg Q6H PRN PO PAIN LEVEL 1-3 OR FEVER Last administered on 08/30/17 22:36; Admin Dose 650 MG; Start 08/23/17 at 15:00 Acetaminophen/ Hydrocodone Bitart ([place] (5/325)) 1 tab Q6H PRN PO MODERATE PAIN LEVEL 4-6 Last administered on 08/29/17 21:58; Admin Dose 1 TAB; Start 08/23/17 at 15:00 Morphine Sulfate (morphine) 2 mg Q4H PRN IV SEVERE PAIN LEVEL 7-10 Last administered on 08/26/17 09:20; Admin Dose 2 MG; Start 08/23/17 at 15:00 Docusate Sodium (Colace) 100 mg Q12H PRN PO CONSTIPATION Last administered on 08/26/17 09:20; Admin Dose 100 MG; Start 08/23/17 at 15:00 Magnesium Hydroxide (Milk Of Mag) 30 ml DAILY PRN PO CONSTIPATION Last administered on 08/29/17 11:56; Admin Dose 30 ML; Start 08/23/17 at 15:00 Sodium Biphosphate/ Sodium Phosphate (Fleet Enema) 133 ml DAILY PRN [place] CONSTIPATION; Start 08/23/17 at 15:00 Heparin Sodium (Porcine) (Heparin (5000 Units/0.5 ml)) 5,000 unit Q12 SC Last administered on 09/01/17 08:35; Admin Dose 5,000 UNIT; Start 08/23/17 at 21: 00 Nitroglycerin 1 tab 1 tab Q5M PRN SL ANGINA; Start 08/23/17 at 15:00 Ceftriaxone Sodium 50 ml @ 100 mls/hr Q24H IVPB Last administered on 21:10; Admin Dose 100 MLS/HR; Start 08/31/17 at 20:00 Clindamycin HCl/ Dextrose (Cleocin 900 Mg/ D5W (Pmx)) 50 ml @ 50 mls/hr Q8 IVPB Last administered on 09/01/17 14:26; Admin Dose 50 MLS/HR; Start 08/31/17 at 20:00 DAPHNE GOODMAN NP Sep 01, 2017 16:05
[2017-09-01] MEDS ORDERED: VANCOMYCIN IV PER PHARMACY XX SCH (16:30)
--- NOTE | 2017-09-01 16:39 | PN ---
Date/Time of Note Date/Time of Note DATE: 09/01/17 TIME: 16:39 Assessment/Plan VTE Prophylaxis VTE Prophylaxis Intervention: SCD's Lines/Catheters IV Catheter Type (from Nrsg): Mid Line Urinary Cath still in place: No Assessment/Plan Assessment/Plan 32 yo M admitted for sepsis from L knee cellulitis with fluid collection. sp fluid sampling ., abscess v hematoma. Fluid with PMN predominance but cell count unable to be performed. culture with group A strep, clinical significance personally unclear, given concern for continued abscess -abx as per ID -will consult ortho on Saturday for possible I&D Subjective 24 Hr Interval Summary Free Text/Dictation States knee feels better Exam/Review of Systems Vital Signs Vitals Vital Signs Date Time Temp Pulse Resp B/P Pulse Ox O2 Delivery O2 Flow Rate FiO2 09/01/17 14:00 96.2 88 19 102/69 97 Room Air Intake and Output 08/31/17 08/31/17 09/01/17 15:00 23:00 07:00 Intake Total 260 ml 1720 ml 720 ml Balance 260 ml 1720 ml 720 ml Exam nad no mrg lungs clear abd soft knee remains swollen Results Result Diagram: 08/31/17 0538 08/31/17 0538 Medications Medications Current Medications Ondansetron HCl (Zofran Inj) 4 mg Q6H PRN IV NAUSEA AND/OR VOMITING; Start 07/30 at 15:00 Acetaminophen (Tylenol Tab) 650 mg Q6H PRN PO PAIN LEVEL 1-3 OR FEVER Last administered on 08/30/17 22:36; Admin Dose 650 MG; Start 08/23/17 at 15:00 Acetaminophen/ Hydrocodone Bitart ([place] (5/325)) 1 tab Q6H PRN PO MODERATE PAIN LEVEL 4-6 Last administered on 08/29/17 21:58; Admin Dose 1 TAB; Start 08/23/17 at 15:00 Morphine Sulfate (morphine) 2 mg Q4H PRN IV SEVERE PAIN LEVEL 7-10 Last administered on 08/26/17 09:20; Admin Dose 2 MG; Start 08/23/17 at 15:00 Docusate Sodium (Colace) 100 mg Q12H PRN PO CONSTIPATION Last administered on 08/26/17 09:20; Admin Dose 100 MG; Start 08/23/17 at 15:00 Magnesium Hydroxide (Milk Of Mag) 30 ml DAILY PRN PO CONSTIPATION Last administered on 08/29/17 11:56; Admin Dose 30 ML; Start 08/23/17 at 15:00 Sodium Biphosphate/ Sodium Phosphate (Fleet Enema) 133 ml DAILY PRN [place] CONSTIPATION; Start 08/23/17 at 15:00 Heparin Sodium (Porcine) (Heparin (5000 Units/0.5 ml)) 5,000 unit Q12 SC Last administered on 09/01/17 08:35; Admin Dose 5,000 UNIT; Start 08/23/17 at 21: 00 Nitroglycerin 1 tab 1 tab Q5M PRN SL ANGINA; Start 08/23/17 at 15:00 Ceftriaxone Sodium 50 ml @ 100 mls/hr Q24H IVPB Last administered on 21:10; Admin Dose 100 MLS/HR; Start 08/31/17 at 20:00 Vancomycin HCl/ Sodium Chloride (Vancocin/NS) 250 ml @ 83.333 mls/ hr NOW IVPB ; Start 09/01/17 at 17:00; Stop 09/01/17 at 19:59 MELISSA MARKS MD Sep 01, 2017 16:39
[2017-09-01] MEDS: ACETAMINOPHEN 325 MG TAB PO PRN (16:49)
[2017-09-01] MEDS ORDERED: VANCOMYCIN 1.5 GM in SOD CHLORIDE 0.9% 250 ML IVPB SCH (17:00)
[2017-09-01] MEDS ORDERED: VITAMIN A & D 5 GM OINT PACKET TOP ONE (18:03)
[2017-09-01 20:35] VITALS: BP 116/65; RESP 18
[2017-09-01] MEDS: CEFTRIAXONE 2 GM/50 ML (PMX) 50 ML IVPB SCH (21:32)
[2017-09-02] MEDS: VANCOMYCIN 1 GM in NS 250 ML IVPB SCH ×2 (01:07→09:25)
[2017-09-02 01:55] VITALS: BP 94/54; RESP 18
[2017-09-02 05:57] LABS: BASOPHIL # 0.1 10^3/ul (0.0-0.1); BASOPHILS % 1.2 % (0.0-2.0); EOSINOPHILS # 0.3 10^3/ul (0.0-0.5); EOSINOPHILS % 3.2 % (0.0-7.0); HEMOGLOBIN 15.7 g/dl (14.0-18.0); LYMPHOCYTES # 2.8 10^3/ul (0.8-2.9); LYMPHOCYTES % 26.2 % (15.0-51.0); MEAN CORPUSCULAR HEMOGLOBIN 32.4 pg (29.0-33.0); MEAN CORPUSCULAR HGB CONC 34.9 g/dl (32.0-37.0); MEAN PLATELET VOLUME 9.6 fl (7.4-10.4); MONOCYTE # 0.9 10^3/ul (0.3-0.9); MONOCYTES % 8.2 % (0.0-11.0); NEUTROPHIL # 6.3 10^3/ul (1.6-7.5); NEUTROPHILS % 58.5 % (39.0-77.0); PLATELET COUNT 332 10^3/UL (140-415); RED BLOOD COUNT 4.84 10^6/ul (4.70-6.10); RED CELL DISTRIBUTION WIDTH 12.6 % (11.5-14.5); WHITE BLOOD COUNT 10.8 10^3/ul (4.8-10.8)
[2017-09-02 07:38] VITALS: BP 96/55; RESP 20
[2017-09-02] MEDS: HEPARIN 5,000 UNIT/0.5 ML VIAL SC SCH ×2 (09:26→20:28)
[2017-09-02] MEDS: ACETAMINOPHEN 325 MG TAB PO PRN (09:26)
--- NOTE | 2017-09-02 12:41 | PN ---
Date/Time of Note Date/Time of Note DATE: 09/02/17 TIME: 12:33 Assessment/Plan VTE Prophylaxis VTE Prophylaxis Intervention: SCD's Lines/Catheters IV [facility]ter Type (from [facility] Mid Line Urinary Cath still in place: No Assessment/Plan Chief Complaint/Hosp Course ASSESSMENT AND PLAN: 32 yo M admitted for sepsis from L knee cellulitis with fluid collection. sp fluid sampling 11.15, abscess v hematoma. Fluid with PMN predominance but cell count unable to be performed. culture with group A strep, clinical significance personally unclear, given concern for continued abscess 1. Severe sepsis - again secondary to left knee cellulitis, which spread up to his left upper leg and abdomen area, now improved. Also with knee fluid collection sp fluid sampling 11.15, abscess v hematoma. Slowly improving overall , but significant redness and warmth present in left knee still. -Continue broad spectrum antibiotics, Tylenol as needed pain fevers -We will talk to orthopedic surgery about incision and drainage of left knee. -Continue pain control medications as well. -Follow-up ID recommendations. 2. History of prior appendectomy. Monitor for now. Problems: Subjective 24 Hr Interval Summary Free Text/Dictation No acute events overnight, no fevers. Still with some left knee redness. Exam/Review of Systems Vital Signs Vitals Vital Signs Date Time Temp Pulse Resp B/P Pulse Ox O2 Delivery O2 Flow Rate FiO2 09/02/17 07:38 97.7 65 20 96/55 98 09/01/17 14:00 Room Air Intake and Output 09/01/17 09/01/17 09/02/17 15:00 23:00 07:00 Intake Total 50 ml 1550 ml 250 ml Balance 50 ml 1550 ml 250 ml Exam Lying in bed, Nad Supple S1, S2 heard no mrg lungs clear abd soft l knee still swollen Results Result Diagram: 09/02/17 0456 08/31/17 0538 Results 24 hrs Laboratory Tests Test 09/02/17 04:56 White Blood Count 10.8 # Red Blood Count 4.84 Hemoglobin 15.7 Hematocrit 45.0 Mean Corpuscular Volume 93.0 Mean Corpuscular Hemoglobin 32.4 Mean Corpuscular Hemoglobin Concent 34.9 Red Cell Distribution Width 12.6 Platelet Count 332 Mean Platelet Volume 9.6 Neutrophils % 58.5 Lymphocytes % 26.2 Monocytes % 8.2 Eosinophils % 3.2 Basophils % 1.2 Nucleated Red Blood Cells % 0.0 Neutrophils # 6.3 Lymphocytes # 2.8 Monocytes # 0.9 Eosinophils # 0.3 Basophils # 0.1 Nucleated Red Blood Cells # 0.0 Medications Medications Current Medications Ondansetron HCl (Zofran Inj) 4 mg Q6H PRN IV NAUSEA AND/OR VOMITING; Start 07/30 at 15:00 Acetaminophen (Tylenol Tab) 650 mg Q6H PRN PO PAIN LEVEL 1-3 OR FEVER Last administered on 09/02/17 09:26; Admin Dose 650 MG; Start 08/23/17 at 15:00 Acetaminophen/ Hydrocodone Bitart ([place] (5/325)) 1 tab Q6H PRN PO MODERATE PAIN LEVEL 4-6 Last administered on 08/29/17 21:58; Admin Dose 1 TAB; Start 08/23/17 at 15:00 Morphine Sulfate (morphine) 2 mg Q4H PRN IV SEVERE PAIN LEVEL 7-10 Last administered on 08/26/17 09:20; Admin Dose 2 MG; Start 08/23/17 at 15:00 Docusate Sodium (Colace) 100 mg Q12H PRN PO CONSTIPATION Last administered on 08/26/17 09:20; Admin Dose 100 MG; Start 08/23/17 at 15:00 Magnesium Hydroxide (Milk Of Mag) 30 ml DAILY PRN PO CONSTIPATION Last administered on 08/29/17 11:56; Admin Dose 30 ML; Start 08/23/17 at 15:00 Sodium Biphosphate/ Sodium Phosphate (Fleet Enema) 133 ml DAILY PRN [place] CONSTIPATION; Start 08/23/17 at 15:00 Heparin Sodium (Porcine) (Heparin (5000 Units/0.5 ml)) 5,000 unit Q12 SC Last administered on 09/02/17 09:26; Admin Dose 5,000 UNIT; Start 08/23/17 at 21: 00 Nitroglycerin 1 tab 1 tab Q5M PRN SL ANGINA; Start 08/23/17 at 15:00 Ceftriaxone Sodium 50 ml @ 100 mls/hr Q24H IVPB Last administered on 21:32; Admin Dose 100 MLS/HR; Start 08/31/17 at 20:00 Vancomycin HCl (Vancocin) 250 ml @ 125 mls/hr Q8H IVPB Last administered on t 09:25; Admin Dose 125 MLS/HR; Start 09/02/17 at 01:00 DIVINE ELLIOTT Sep 02, 2017 12:41
[2017-09-02 13:33] VITALS: BP 92/54; RESP 20
--- NOTE | 2017-09-02 14:56 | PN ---
DATE: 09/02/2017 SUBJECTIVE: No acute changes. No fevers. The patient is alert, looks comfortable. WBC today 10.8 . No shift, no bands. BUN 20, creatinine 1.24. MICROBIOLOGY: Aspirated fluid culture grew Strep pyogenes group A, susceptible to all antibio tics except Cipro and clindamycin. ANTIMICROBIALS: The patient is on: 1. Vancomycin. 2. Rocephin. PHYSICAL EXAMINATION: GENERAL: This is well-developed, well-nourished, middle-aged man who is alert, in no distr ess. HEENT: Head atraumatic, normocephalic. Sclerae anicteric. Buccal mucosa pink. NECK: Supple. CHEST: Rise symmetrical. Breath sounds clear. HEART: S1, S2. ABDOMEN: Soft, bowel tones present. EXTREMITIES: Left knee swelling and erythema improved. ASSESSMENT: 1. Systemic inflammatory response syndrome. 2. Left knee cellulitis with abscess, status post drainage by interventional radiology. PLAN: The patient remains stable, overall improving. Continue present care. Continue on IV Roceph in. Discontinue vancomycin. Dictated By: JOO CARLIN UNDERWRITING ANALYST for SABAR FREEMAN MD NI/NTS Conf#: [id number] DID#: [id number]
[2017-09-02] MEDS: CEFTRIAXONE 2 GM/50 ML (PMX) 50 ML IVPB SCH (20:22)
[2017-09-02 20:34] VITALS: BP 109/70; RESP 20
[2017-09-03 02:00] VITALS: BP 108/59; RESP 20
[2017-09-03 06:05] LABS: BASOPHIL # 0.1 10^3/ul (0.0-0.1); EOSINOPHILS # 0.4 10^3/ul (0.0-0.5); EOSINOPHILS % 3.6 % (0.0-7.0); HEMATOCRIT 45.7 % (42.0-52.0); LYMPHOCYTES # 2.9 10^3/ul (0.8-2.9); LYMPHOCYTES % 28.2 % (15.0-51.0); MEAN CORPUSCULAR HEMOGLOBIN 32.3 pg (29.0-33.0); MEAN CORPUSCULAR VOLUME 92.1 fl (82.0-101.0); MEAN PLATELET VOLUME 9.3 fl (7.4-10.4); MONOCYTE # 0.6 10^3/ul (0.3-0.9); MONOCYTES % 6.2 % (0.0-11.0); NEUTROPHIL # 6.1 10^3/ul (1.6-7.5); NEUTROPHILS % 59.9 % (39.0-77.0); PLATELET COUNT 333 10^3/UL (140-415); RED BLOOD COUNT 4.96 10^6/ul (4.70-6.10); RED CELL DISTRIBUTION WIDTH 12.6 % (11.5-14.5); WHITE BLOOD COUNT 10.2 10^3/ul (4.8-10.8)
[2017-09-03 06:54] LABS: CALCIUM 9.4 mg/dl (8.4-10.2); CREATININE 0.95 mg/dl (0.61-1.24); POTASSIUM 4.1 mmol/L (3.5-5.1)
[2017-09-03 07:43] VITALS: BP 99/61; RESP 18
[2017-09-03] MEDS: HEPARIN 5,000 UNIT/0.5 ML VIAL SC SCH ×2 (10:16→21:09)
--- NOTE | 2017-09-03 12:15 | PN ---
Date/Time of Note Date/Time of Note DATE: 09/03/17 TIME: 12:13 Assessment/Plan VTE Prophylaxis VTE Prophylaxis Intervention: SCD's Lines/Catheters IV C[facility]ter Type (from [facility]): Mid Line Urinary Cath still in place: No Assessment/Plan Chief Complaint/Hosp Course ASSESSMENT AND PLAN: 32 yo M admitted for sepsis from L knee cellulitis with fluid collection. sp fluid sampling 11.15, abscess v hematoma. Fluid with PMN predominance but cell count unable to be performed. culture with group A strep, clinical significance personally unclear, given concern for continued abscess 1. Severe sepsis - again secondary to left knee cellulitis, which on admission had spread up to his left upper leg and abdomen area, now improved significantly overall. Also with L knee fluid collection sp fluid sampling 11.15, abscess (as cultures were positive for bacterial growth) slowly improving overall, but some redness and warmth present in left knee still. -Continue broad spectrum antibiotics, Tylenol as needed pain fevers -Awaiting orthopedic surgery consult about incision and drainage of left knee , pending. -Continue pain control medications as well. -Follow-up ID recommendations. 2. History of prior appendectomy. Monitor for now. Problems: Subjective 24 Hr Interval Summary Free Text/Dictation Patient denies left knee pain, ambulating well, no fevers. Seen by infectious disease team. Still waiting to be seen by orthopedic surgery team. Exam/Review of Systems Vital Signs Vitals Vital Signs Date Time Temp Pulse Resp B/P Pulse Ox O2 Delivery O2 Flow Rate FiO2 09/03/17 07:43 97.9 72 18 99/61 95 09/01/17 14:00 Room Air Intake and Output 09/02/17 09/02/17 09/03/17 14:59 22:59 06:59 Intake Total 250 ml 1310 ml Output Total 1300 ml Balance 250 ml 10 ml Exam Lying in bed, Nad Supple S1, S2 heard no mrg lungs clear abd soft l knee still swollen, NT Results Result Diagram: 09/03/17 0537 09/03/17 0537 Results 24 hrs Laboratory Tests Test 09/03/17 05:37 White Blood Count 10.2 Red Blood Count 4.96 Hemoglobin 16.0 Hematocrit 45.7 Mean Corpuscular Volume 92.1 Mean Corpuscular Hemoglobin 32.3 Mean Corpuscular Hemoglobin Concent 35.0 Red Cell Distribution Width 12.6 Platelet Count 333 Mean Platelet Volume 9.3 Neutrophils % 59.9 Lymphocytes % 28.2 Monocytes % 6.2 Eosinophils % 3.6 Basophils % 1.0 Nucleated Red Blood Cells % 0.0 Neutrophils # 6.1 Lymphocytes # 2.9 Monocytes # 0.6 Eosinophils # 0.4 Basophils # 0.1 Nucleated Red Blood Cells # 0.0 Sodium Level 141 Potassium Level 4.1 Chloride Level 104 Carbon Dioxide Level 26 Anion Gap 15 Blood Urea Nitrogen 14 Creatinine 0.95 Glucose Level 99 Calcium Level 9.4 Medications Medications Current Medications Ondansetron HCl (Zofran Inj) 4 mg Q6H PRN IV NAUSEA AND/OR VOMITING; Start 07/30 at 15:00 Acetaminophen (Tylenol Tab) 650 mg Q6H PRN PO PAIN LEVEL 1-3 OR FEVER Last administered on 09/02/17 09:26; Admin Dose 650 MG; Start 08/23/17 at 15:00 Acetaminophen/ Hydrocodone Bitart ([place] (5/325)) 1 tab Q6H PRN PO MODERATE PAIN LEVEL 4-6 Last administered on 08/29/17 21:58; Admin Dose 1 TAB; Start 08/23/17 at 15:00 Morphine Sulfate (morphine) 2 mg Q4H PRN IV SEVERE PAIN LEVEL 7-10 Last administered on 08/26/17 09:20; Admin Dose 2 MG; Start 08/23/17 at 15:00 Docusate Sodium (Colace) 100 mg Q12H PRN PO CONSTIPATION Last administered on 08/26/17 09:20; Admin Dose 100 MG; Start 08/23/17 at 15:00 Magnesium Hydroxide (Milk Of Mag) 30 ml DAILY PRN [place] CONSTIPATION Last administered on 08/29/17 11:56; Admin Dose 30 ML; Start 08/23/17 at 15:00 Sodium Biphosphate/ Sodium Phosphate (Fleet Enema) 133 ml DAILY PRN [place] CONSTIPATION; Start 08/23/17 at 15:00 Heparin Sodium (Porcine) (Heparin (5000 Units/0.5 ml)) 5,000 unit Q12 SC Last administered on 09/03/17 10:16; Admin Dose 5,000 UNIT; Start 08/23/17 at 21: 00 Nitroglycerin 1 tab 1 tab Q5M PRN [place] ANGINA; Start 08/23/17 at 15:00 Ceftriaxone Sodium (Rocephin) 50 ml @ 100 mls/hr Q24H IVPB Last administered on 09/02/17t 20:22; Admin Dose 100 MLS/HR; Start 08/31/17 at 20:00 DIVINE ELLIOTT Sep 03, 2017 12:15
--- NOTE | 2017-09-03 13:26 | CONS ---
Date/Time of Note Date/Time of Note DATE: 09/03/17 TIME: 13:23 Assessment/Plan Assessment/Plan Chief Complaint/Hosp Course SUBJECTIVE: No acute changes. No fevers. The patient is alert, looks comfortable. WBC today 10.8. No shift, no bands. BUN 20, creatinine 1.24. MICROBIOLOGY: Aspirated fluid culture grew Strep pyogenes group A, susceptible to all antibiotics except Cipro and clindamycin. ANTIMICROBIALS: Rocephin. PHYSICAL EXAMINATION: GENERAL: This is well-developed, well-nourished, middle-aged man who is alert, in no distress. HEENT: Head atraumatic, normocephalic. Sclerae anicteric. Buccal mucosa pink. NECK: Supple. CHEST: Rise symmetrical. Breath sounds clear. HEART: S1, S2. ABDOMEN: Soft, bowel tones present. EXTREMITIES: Left knee swelling and erythema improved. ASSESSMENT: 1. Systemic inflammatory response syndrome. 2. Left knee cellulitis with abscess, status post drainage by interventional radiology. PLAN: L knee looks much better, ok dc on PO Keflex for 7 more days. Problems: Consultation Date/Type/Reason Admit Date/Time Aug 23, 2017 at 12:37 Type of Consultation: ID Exam/Review of Systems Vital Signs Vitals Vital Signs Date Time Temp Pulse Resp B/P Pulse Ox O2 Delivery O2 Flow Rate FiO2 09/03/17 07:43 97.9 72 18 99/61 95 09/01/17 14:00 Room Air Intake and Output 09/02/17 09/02/17 09/03/17 15:00 23:00 07:00 Intake Total 250 ml 1310 ml Output Total 1300 ml Balance 250 ml 10 ml Results Result Diagram: 09/03/17 0537 09/03/17 0537 Results 24 hrs Laboratory Tests Test 09/03/17 05:37 White Blood Count 10.2 Red Blood Count 4.96 Hemoglobin 16.0 Hematocrit 45.7 Mean Corpuscular Volume 92.1 Mean Corpuscular Hemoglobin 32.3 Mean Corpuscular Hemoglobin Concent 35.0 Red Cell Distribution Width 12.6 Platelet Count 333 Mean Platelet Volume 9.3 Neutrophils % 59.9 Lymphocytes % 28.2 Monocytes % 6.2 Eosinophils % 3.6 Basophils % 1.0 Nucleated Red Blood Cells % 0.0 Neutrophils # 6.1 Lymphocytes # 2.9 Monocytes # 0.6 Eosinophils # 0.4 Basophils # 0.1 Nucleated Red Blood Cells # 0.0 Sodium Level 141 Potassium Level 4.1 Chloride Level 104 Carbon Dioxide Level 26 Anion Gap 15 Blood Urea Nitrogen 14 Creatinine 0.95 Glucose Level 99 Calcium Level 9.4 Medications Medications Current Medications Ondansetron HCl (Zofran Inj) 4 mg Q6H PRN IV NAUSEA AND/OR VOMITING; Start 07/30 at 15:00 Acetaminophen (Tylenol Tab) 650 mg Q6H PRN PO PAIN LEVEL 1-3 OR FEVER Last administered on 09/02/17 09:26; Admin Dose 650 MG; Start 08/23/17 at 15:00 Acetaminophen/ Hydrocodone Bitart ([place] (5/325)) 1 tab Q6H PRN PO MODERATE PAIN LEVEL 4-6 Last administered on 08/29/17 21:58; Admin Dose 1 TAB; Start 08/23/17 at 15:00 Morphine Sulfate (morphine) 2 mg Q4H PRN IV SEVERE PAIN LEVEL 7-10 Last administered on 08/26/17 09:20; Admin Dose 2 MG; Start 08/23/17 at 15:00 Docusate Sodium (Colace) 100 mg Q12H PRN PO CONSTIPATION Last administered on 08/26/17 09:20; Admin Dose 100 MG; Start 08/23/17 at 15:00 Magnesium Hydroxide (Milk Of Mag) 30 ml DAILY PRN PO CONSTIPATION Last administered on 08/29/17 11:56; Admin Dose 30 ML; Start 08/23/17 at 15:00 Sodium Biphosphate/ Sodium Phosphate (Fleet Enema) 133 ml DAILY PRN [place] CONSTIPATION; Start 08/23/17 at 15:00 Heparin Sodium (Porcine) (Heparin (5000 Units/0.5 ml)) 5,000 unit Q12 SC Last administered on 09/03/17 10:16; Admin Dose 5,000 UNIT; Start 08/23/17 at 21: 00 Nitroglycerin 1 tab 1 tab Q5M PRN SL ANGINA; Start 08/23/17 at 15:00 Ceftriaxone Sodium (Rocephin) 50 ml @ 100 mls/hr Q24H IVPB Last administered on 09/02/17 20:22; Admin Dose 100 MLS/HR; Start 08/31/17 at 20:00 JOO CARLIN NP Sep 03, 2017 13:26
[2017-09-03 13:57] VITALS: BP 112/66; RESP 20
[2017-09-03 20:00] VITALS: BP 103/66; RESP 16
[2017-09-03] MEDS: ACETAMINOPHEN 325 MG TAB PO PRN (21:08)
[2017-09-03] MEDS: CEFTRIAXONE 2 GM/50 ML (PMX) 50 ML IVPB SCH (21:09)
[2017-09-04 02:53] VITALS: BP 96/55; RESP 16
--- NOTE | 2017-09-04 03:56 | CONS ---
DATE OF ADMISSION: 08/23/2017 DATE OF CONSULTATION: 09/03/2017 TYPE OF CONSULTATION: Orthopedic Surgery HISTORY OF PRESENT ILLNESS: The patient is a 32-year-old male who was admitted on 08/23/2017 when he came to the Emergency Room complaining of painful swelling and redness involving the anterior aspect of his left knee. According to the patient, he had sustained the scrape wound over the left knee about 3 days prior to his development of these symptoms. There was a questionable sense of fever and chills. In the Emergency Room, he was showing signs of sepsis including temperature of 100.6, tachycardia, and leukocytosis with a WBC count of 18.6, and a possible necrotizing fasciitis from recent appendectomy was entertained, but was not confirmed. He was then managed with wound care and antibiotics. He was mainly treated with the IV antibiotics and further studies including CT scan and x-rays, which did not show actual presence of effusion of the left knee itself. Instead, it was showing soft tissue swelling suggestive of cellulitis anterior to the left knee joint. Obviously, aspiration around the knee was done by Radiology around 08/28/2017 and it was reportedly growing Streptococcus pyogenes, which is sensitive to some of the antibiotics. PAST MEDICAL AND SURGICAL HISTORY: He had recent appendectomy. He also has a history of drug abuse in the past. PHYSICAL EXAMINATION: At the time of my examination, he reports that he is feeling much better with less pain and less swelling. There was an obvious thickness and residual swelling over the anterior aspect of the left patella mainly. There were no signs of any effusion in the knee joint itself. Range of motion of the left knee was full and pain free. There were no signs of instability. DIAGNOSTIC IMPRESSION: Soft tissue infection anterior to the left knee, possibly prepatellar bursitis versus septic arthritis, improved with antibiotic treatment. RECOMMENDATIONS: 1. Okay to be discharged with further treatment with antibiotics, per Infectious Disease. 2. Orthopedic followup in about 2-3 weeks by an orthopedic surgeon with repeated examination and x-rays. 3. Further orthopedic followup will be on a p.r.n. basis. Dictated By: In Divine Byrne MD /quentin/joyce /Document#: [id number]
[2017-09-04 06:15] LABS: BASOPHIL # 0.1 10^3/ul (0.0-0.1); BASOPHILS % 0.9 % (0.0-2.0); EOSINOPHILS # 0.3 10^3/ul (0.0-0.5); EOSINOPHILS % 3.1 % (0.0-7.0); HEMATOCRIT 46.6 % (42.0-52.0); HEMOGLOBIN 16.1 g/dl (14.0-18.0); LYMPHOCYTES # 3.5 10^3/ul (0.8-2.9); LYMPHOCYTES % 31.6 % (15.0-51.0); MEAN CORPUSCULAR HGB CONC 34.5 g/dl (32.0-37.0); MEAN CORPUSCULAR VOLUME 92.6 fl (82.0-101.0); MEAN PLATELET VOLUME 9.1 fl (7.4-10.4); MONOCYTE # 0.7 10^3/ul (0.3-0.9); MONOCYTES % 6.2 % (0.0-11.0); NEUTROPHIL # 6.3 10^3/ul (1.6-7.5); NEUTROPHILS % 57.6 % (39.0-77.0); PLATELET COUNT 341 10^3/UL (140-415); RED BLOOD COUNT 5.03 10^6/ul (4.70-6.10); RED CELL DISTRIBUTION WIDTH 12.7 % (11.5-14.5)
[2017-09-04 07:18] LABS: CALCIUM 9.4 mg/dl (8.4-10.2); CREATININE 0.93 mg/dl (0.61-1.24); POTASSIUM 4.3 mmol/L (3.5-5.1)
[2017-09-04 07:35] VITALS: BP 92/56; RESP 16
[2017-09-04] MEDS: HEPARIN 5,000 UNIT/0.5 ML VIAL SC SCH ×2 (08:13→20:53)
--- NOTE | 2017-09-04 10:50 | PN ---
Date/Time of Note Date/Time of Note DATE: 09/04/17 TIME: 10:48 Assessment/Plan VTE Prophylaxis VTE Prophylaxis Intervention: SCD's Lines/Catheters [facility]from [facility] Mid Line Urinary Cath still in place: No Assessment/Plan Chief Complaint/Hosp Course ASSESSMENT AND PLAN: 32 yo M admitted for sepsis from L knee cellulitis with fluid collection. sp fluid sampling 11.15, abscess v hematoma. Fluid with PMN predominance but cell count unable to be performed. culture with group A strep, clinical significance personally unclear, given concern for continued abscess 1. Severe sepsis - again secondary to left knee cellulitis, which on admission had spread up to his left upper leg and abdomen area, now improved significantly overall. Also with L knee fluid collection sp fluid sampling 11.15, abscess (as cultures were positive for bacterial growth) slowly improving overall, but some redness and warmth present in left knee still. Evaluated by orthopedic surgery team yesterday as well. -Continue broad spectrum antibiotics, Tylenol as needed pain fevers -Appreciate ID and orthopedic recommendations. Upon discussion with infectious disease team, will recommend Rocephin 1 g IV daily for the next 4 weeks, will order for PICC line. -Continue pain control medications as well. -Follow-up ID recommendations. 2. History of prior appendectomy. Monitor for now. Problems: Subjective 24 Hr Interval Summary Free Text/Dictation Seen by orthopedic surgery team and infectious disease team yesterday. No acute events overnight. Exam/Review of Systems Vital Signs Vitals Vital Signs Date Time Temp Pulse Resp B/P Pulse Ox O2 Delivery O2 Flow Rate FiO2 09/04/17 07:35 97.8 60 16 92/56 97 09/01/17 14:00 Room Air Intake and Output 09/03/17 09/03/17 09/04/17 15:00 23:00 07:00 Intake Total 720 ml 2210 ml 800 ml Output Total 2 ml Balance 718 ml 2210 ml 800 ml Exam Lying in bed, Nad Supple S1, S2 heard no mrg lungs clear abd soft l knee still swollen, NT Results Result Diagram: 09/04/17 0552 09/04/17 0552 Results 24 hrs Laboratory Tests Test 09/04/17 05:52 White Blood Count 11.0 H Red Blood Count 5.03 Hemoglobin 16.1 Hematocrit 46.6 Mean Corpuscular Volume 92.6 Mean Corpuscular Hemoglobin 32.0 Mean Corpuscular Hemoglobin Concent 34.5 Red Cell Distribution Width 12.7 Platelet Count 341 Mean Platelet Volume 9.1 Neutrophils % 57.6 Lymphocytes % 31.6 Monocytes % 6.2 Eosinophils % 3.1 Basophils % 0.9 Nucleated Red Blood Cells % 0.0 Neutrophils # 6.3 Lymphocytes # 3.5 H Monocytes # 0.7 Eosinophils # 0.3 Basophils # 0.1 Nucleated Red Blood Cells # 0.0 Sodium Level 142 Potassium Level 4.3 Chloride Level 105 Carbon Dioxide Level 28 Anion Gap 13 Blood Urea Nitrogen 12 Creatinine 0.93 Glucose Level 92 Calcium Level 9.4 Medications Medications Current Medications Ondansetron HCl (Zofran Inj) 4 mg Q6H PRN IV NAUSEA AND/OR VOMITING; Start 07/30 at 15:00 Acetaminophen (Tylenol Tab) 650 mg Q6H PRN PO PAIN LEVEL 1-3 OR FEVER Last administered on 09/03/17 21:08; Admin Dose 650 MG; Start 08/23/17 at 15:00 Acetaminophen/ Hydrocodone Bitart ([place] (5/325)) 1 tab Q6H PRN PO MODERATE PAIN LEVEL 4-6 Last administered on 08/29/17 21:58; Admin Dose 1 TAB; Start 08/23/17 at 15:00 Morphine Sulfate (morphine) 2 mg Q4H PRN IV SEVERE PAIN LEVEL 7-10 Last administered on 08/26/17 09:20; Admin Dose 2 MG; Start 08/23/17 at 15:00 Docusate Sodium (Colace) 100 mg Q12H PRN PO CONSTIPATION Last administered on 08/26/17 09:20; Admin Dose 100 MG; Start 08/23/17 at 15:00 Magnesium Hydroxide (Milk Of Mag) 30 ml DAILY PRN PO CONSTIPATION Last administered on 08/29/17 11:56; Admin Dose 30 ML; Start 08/23/17 at 15:00 Sodium Biphosphate/ Sodium Phosphate (Fleet Enema) 133 ml DAILY PRN [place] CONSTIPATION; Start 08/23/17 at 15:00 Heparin Sodium (Porcine) (Heparin (5000 Units/0.5 ml)) 5,000 unit Q12 SC Last administered on 09/04/17 08:13; Admin Dose 5,000 UNIT; Start 08/23/17 at 21: 00 Nitroglycerin 1 tab 1 tab Q5M PRN SL ANGINA; Start 08/23/17 at 15:00 Ceftriaxone Sodium (Rocephin) 50 ml @ 100 mls/hr Q24H IVPB Last administered on 09/03/17t 21:09; Admin Dose 100 MLS/HR; Start 08/31/17 at 20:00 DIVINE ELLIOTT Sep 04, 2017 10:50
[2017-09-04] MEDS ORDERED: LIDOCAINE 1% (MPF) 5 ML VIAL SC ONE ×2 (11:00→11:30)
--- NOTE | 2017-09-04 13:58 | CONS ---
Date/Time of Note Date/Time of Note DATE: 09/04/17 TIME: 13:56 Assessment/Plan Assessment/Plan Chief Complaint/Hosp Course SUBJECTIVE: No acute changes. No fevers. The patient is alert, looks comfortable. WBC today 10.8. No shift, no bands. BUN 20, creatinine 1.24. MICROBIOLOGY: Aspirated fluid culture grew Strep pyogenes group A, susceptible to all antibiotics except Cipro and clindamycin. ANTIMICROBIALS: Rocephin. PHYSICAL EXAMINATION: GENERAL: This is well-developed, well-nourished, middle-aged man who is alert, in no distress. HEENT: Head atraumatic, normocephalic. Sclerae anicteric. Buccal mucosa pink. NECK: Supple. CHEST: Rise symmetrical. Breath sounds clear. HEART: S1, S2. ABDOMEN: Soft, bowel tones present. EXTREMITIES: Left knee swelling and erythema improved. ASSESSMENT: 1. Systemic inflammatory response syndrome. 2. Left knee cellulitis with abscess, status post drainage by interventional radiology, cultures growing strep pyogenes. PLAN: Stable, evaluated by Dr. Byrne, there is a concern that patient may have septic arthritis, therefore recommend to send him home on IV Rocephin for 3 more weeks, patient to follow with Ortho before completion of therapy for further recommendations Discussed with staff and the patient Problems: Consultation Date/Type/Reason Admit Date/Time Aug 23, 2017 at 12:37 Type of Consultation: ID Exam/Review of Systems Vital Signs Vitals Vital Signs Date Time Temp Pulse Resp B/P Pulse Ox O2 Delivery O2 Flow Rate FiO2 09/04/17 07:35 97.8 60 16 92/56 97 09/01/17 14:00 Room Air Intake and Output 09/03/17 09/03/17 09/04/17 14:59 22:59 06:59 Intake Total 720 ml 2160 ml 850 ml Output Total 2 ml Balance 718 ml 2160 ml 850 ml Results Result Diagram: 09/04/17 0552 09/04/17 0552 Results 24 hrs Laboratory Tests Test 09/04/17 05:52 White Blood Count 11.0 H Red Blood Count 5.03 Hemoglobin 16.1 Hematocrit 46.6 Mean Corpuscular Volume 92.6 Mean Corpuscular Hemoglobin 32.0 Mean Corpuscular Hemoglobin Concent 34.5 Red Cell Distribution Width 12.7 Platelet Count 341 Mean Platelet Volume 9.1 Neutrophils % 57.6 Lymphocytes % 31.6 Monocytes % 6.2 Eosinophils % 3.1 Basophils % 0.9 Nucleated Red Blood Cells % 0.0 Neutrophils # 6.3 Lymphocytes # 3.5 H Monocytes # 0.7 Eosinophils # 0.3 Basophils # 0.1 Nucleated Red Blood Cells # 0.0 Sodium Level 142 Potassium Level 4.3 Chloride Level 105 Carbon Dioxide Level 28 Anion Gap 13 Blood Urea Nitrogen 12 Creatinine 0.93 Glucose Level 92 Calcium Level 9.4 Medications Medications Current Medications Ondansetron HCl (Zofran Inj) 4 mg Q6H PRN IV NAUSEA AND/OR VOMITING; Start 07/30 at 15:00 Acetaminophen (Tylenol Tab) 650 mg Q6H PRN PO PAIN LEVEL 1-3 OR FEVER Last administered on 09/03/17 21:08; Admin Dose 650 MG; Start 08/23/17 at 15:00 Acetaminophen/ Hydrocodone Bitart ([place] (5/325)) 1 tab Q6H PRN PO MODERATE PAIN LEVEL 4-6 Last administered on 08/29/17 21:58; Admin Dose 1 TAB; Start 08/23/17 at 15:00 Morphine Sulfate (morphine) 2 mg Q4H PRN IV SEVERE PAIN LEVEL 7-10 Last administered on 08/26/17 09:20; Admin Dose 2 MG; Start 08/23/17 at 15:00 Docusate Sodium (Colace) 100 mg Q12H PRN PO CONSTIPATION Last administered on 08/26/17 09:20; Admin Dose 100 MG; Start 08/23/17 at 15:00 Magnesium Hydroxide (Milk Of Mag) 30 ml DAILY PRN PO CONSTIPATION Last administered on 08/29/17 11:56; Admin Dose 30 ML; Start 08/23/17 at 15:00 Sodium Biphosphate/ Sodium Phosphate (Fleet Enema) 133 ml DAILY PRN [place] CONSTIPATION; Start 08/23/17 at 15:00 Heparin Sodium (Porcine) (Heparin (5000 Units/0.5 ml)) 5,000 unit Q12 SC Last administered on 09/04/17 08:13; Admin Dose 5,000 UNIT; Start 08/23/17 at 21: 00 Nitroglycerin 1 tab 1 tab Q5M PRN SL ANGINA; Start 08/23/17 at 15:00 Ceftriaxone Sodium (Rocephin) 50 ml @ 100 mls/hr Q24H IVPB Last administered on 09/03/17t 21:09; Admin Dose 100 MLS/HR; Start 08/31/17 at 20:00 JOO CARLIN NP Sep 04, 2017 13:58
[2017-09-04 14:04] VITALS: BP 103/72; RESP 16
[2017-09-04 20:27] VITALS: BP 108/71; RESP 18
[2017-09-04] MEDS: CEFTRIAXONE 2 GM/50 ML (PMX) 50 ML IVPB SCH (20:47)
[2017-09-05 02:08] VITALS: BP 105/56; RESP 18
[2017-09-05 06:09] LABS: BASOPHIL # 0.1 10^3/ul (0.0-0.1); BASOPHILS % 1.3 % (0.0-2.0); EOSINOPHILS # 0.3 10^3/ul (0.0-0.5); EOSINOPHILS % 3.1 % (0.0-7.0); HEMATOCRIT 45.6 % (42.0-52.0); HEMOGLOBIN 15.8 g/dl (14.0-18.0); LYMPHOCYTES # 3.4 10^3/ul (0.8-2.9); MEAN CORPUSCULAR HGB CONC 34.6 g/dl (32.0-37.0); MEAN CORPUSCULAR VOLUME 92.3 fl (82.0-101.0); MEAN PLATELET VOLUME 9.2 fl (7.4-10.4); MONOCYTE # 0.7 10^3/ul (0.3-0.9); MONOCYTES % 7.5 % (0.0-11.0); NEUTROPHIL # 5.1 10^3/ul (1.6-7.5); NEUTROPHILS % 52.5 % (39.0-77.0); PLATELET COUNT 332 10^3/UL (140-415); RED BLOOD COUNT 4.94 10^6/ul (4.70-6.10); RED CELL DISTRIBUTION WIDTH 12.9 % (11.5-14.5); WHITE BLOOD COUNT 9.7 10^3/ul (4.8-10.8)
[2017-09-05 06:39] LABS: CALCIUM 9.2 mg/dl (8.4-10.2); CREATININE 0.97 mg/dl (0.61-1.24)
[2017-09-05 07:54] VITALS: BP 100/56; RESP 16
[2017-09-05] MEDS: HEPARIN 5,000 UNIT/0.5 ML VIAL SC SCH ×2 (08:35→21:26)
--- NOTE | 2017-09-05 11:57 | CONS ---
Date/Time of Note Date/Time of Note DATE: 09/05/17 TIME: 11:54 Assessment/Plan Assessment/Plan Chief Complaint/Hosp Course SUBJECTIVE: No acute changes. No fevers. The patient is alert, looks comfortable. MICROBIOLOGY: Aspirated fluid culture grew Strep pyogenes group A, susceptible to all antibiotics except Cipro and clindamycin. ANTIMICROBIALS: Rocephin. PHYSICAL EXAMINATION: GENERAL: This is well-developed, well-nourished, middle-aged man who is alert, in no distress. HEENT: Head atraumatic, normocephalic. Sclerae anicteric. Buccal mucosa pink. NECK: Supple. CHEST: Rise symmetrical. Breath sounds clear. HEART: S1, S2. ABDOMEN: Soft, bowel tones present. EXTREMITIES: Left knee swelling and erythema improved. ASSESSMENT: 1. Systemic inflammatory response syndrome. 2. Left knee cellulitis with abscess, status post drainage by interventional radiology, cultures growing strep pyogenes. PLAN: Stable, evaluated by Dr. Byrne, there is a concern that patient may have septic arthritis, will be send home on IV or IM Rocephin for 3 more weeks, patient to follow with Ortho before completion of therapy for further recommendations Problems: Consultation Date/Type/Reason Admit Date/Time Aug 23, 2017 at 12:37 Type of Consultation: ID Exam/Review of Systems Vital Signs Vitals Vital Signs Date Time Temp Pulse Resp B/P Pulse Ox O2 Delivery O2 Flow Rate FiO2 09/05/17 07:54 97.8 71 16 100/56 97 09/01/17 14:00 Room Air Intake and Output 09/04/17 09/04/17 09/05/17 15:00 23:00 07:00 Intake Total 2220 ml 450 ml Balance 2220 ml 450 ml Results Result Diagram: 09/05/17 0559 09/05/17 0559 Results 24 hrs Laboratory Tests Test 09/05/17 05:59 White Blood Count 9.7 Red Blood Count 4.94 Hemoglobin 15.8 Hematocrit 45.6 Mean Corpuscular Volume 92.3 Mean Corpuscular Hemoglobin 32.0 Mean Corpuscular Hemoglobin Concent 34.6 Red Cell Distribution Width 12.9 Platelet Count 332 Mean Platelet Volume 9.2 Neutrophils % 52.5 Lymphocytes % 35.0 Monocytes % 7.5 Eosinophils % 3.1 Basophils % 1.3 Nucleated Red Blood Cells % 0.0 Neutrophils # 5.1 Lymphocytes # 3.4 H Monocytes # 0.7 Eosinophils # 0.3 Basophils # 0.1 Nucleated Red Blood Cells # 0.0 Sodium Level 142 Potassium Level 4.0 Chloride Level 102 Carbon Dioxide Level 28 Anion Gap 16 Blood Urea Nitrogen 12 Creatinine 0.97 Glucose Level 91 Calcium Level 9.2 Medications Medications Current Medications Ondansetron HCl (Zofran Inj) 4 mg Q6H PRN IV NAUSEA AND/OR VOMITING; Start 07/30 at 15:00 Acetaminophen (Tylenol Tab) 650 mg Q6H PRN PO PAIN LEVEL 1-3 OR FEVER Last administered on 09/03/17 21:08; Admin Dose 650 MG; Start 08/23/17 at 15:00 Acetaminophen/ Hydrocodone Bitart ([place] (5/325)) 1 tab Q6H PRN PO MODERATE PAIN LEVEL 4-6 Last administered on 08/29/17 21:58; Admin Dose 1 TAB; Start 08/23/17 at 15:00 Morphine Sulfate (morphine) 2 mg Q4H PRN IV SEVERE PAIN LEVEL 7-10 Last administered on 08/26/17 09:20; Admin Dose 2 MG; Start 08/23/17 at 15:00 Docusate Sodium (Colace) 100 mg Q12H PRN PO CONSTIPATION Last administered on 08/26/17 09:20; Admin Dose 100 MG; Start 08/23/17 at 15:00 Magnesium Hydroxide (Milk Of Mag) 30 ml DAILY PRN PO CONSTIPATION Last administered on 08/29/17 11:56; Admin Dose 30 ML; Start 08/23/17 at 15:00 Sodium Biphosphate/ Sodium Phosphate (Fleet Enema) 133 ml DAILY PRN [place] CONSTIPATION; Start 08/23/17 at 15:00 Heparin Sodium (Porcine) (Heparin (5000 Units/0.5 ml)) 5,000 unit Q12 SC Last administered on 09/05/17 08:35; Admin Dose 5,000 UNIT; Start 08/23/17 at 21: 00 Nitroglycerin 1 tab 1 tab Q5M PRN [place] ANGINA; Start 08/23/17 at 15:00 Ceftriaxone Sodium (Rocephin) 50 ml @ 100 mls/hr Q24H IVPB Last administered on 09/04/17 20:47; Admin Dose 100 MLS/HR; Start 08/31/17 at 20:00 JOO CARLIN NP Sep 05, 2017 11:57
--- NOTE | 2017-09-05 12:13 | PN ---
Date/Time of Note Date/Time of Note DATE: 09/05/17 TIME: 12:11 Assessment/Plan VTE Prophylaxis VTE Prophylaxis Intervention: SCD's Lines/Catheters [facility] Type [facility]from [facility] Mid Line Urinary Cath still in place: No Assessment/Plan Chief Complaint/Hosp Course ASSESSMENT AND PLAN: 32 yo M admitted for sepsis from L knee cellulitis with fluid collection. sp fluid sampling 11.15, abscess v hematoma. Fluid with PMN predominance but cell count unable to be performed. culture with group A strep, clinical significance personally unclear, given concern for continued abscess 1. Severe sepsis - again secondary to left knee cellulitis, which on admission had spread up to his left upper leg and abdomen area, now improved significantly overall. Also with L knee fluid collection sp fluid sampling 11.15, abscess (as cultures were positive for bacterial growth) slowly improving overall, but some redness and warmth present in left knee still. Evaluated by orthopedic surgery team yesterday as well. -Continue broad spectrum antibiotics, Tylenol as needed pain fevers -Appreciate ID and orthopedic recommendations. Upon discussion with infectious disease team, will recommend Rocephin 1 g IM 3 more weeks, if not this then Zyvox for 3 more weeks. Case management working on approval for either of these antibiotics for patient. -Continue pain control medications as well. -Follow-up ID recommendations. 2. History of prior appendectomy. Monitor for now. Problems: Subjective 24 Hr Interval Summary Free Text/Dictation No acute events overnight. Still waiting for insurance approval for which antibiotic patient can go home on. Exam/Review of Systems Vital Signs Vitals Vital Signs Date Time Temp Pulse Resp B/P Pulse Ox O2 Delivery O2 Flow Rate FiO2 09/05/17 07:54 97.8 71 16 100/56 97 09/01/17 14:00 Room Air Intake and Output 09/04/17 09/04/17 09/05/17 15:00 23:00 07:00 Intake Total 2220 ml 450 ml Balance 2220 ml 450 ml Exam Lying in bed, Nad Supple S1, S2 heard no mrg lungs clear abd soft l knee still swollen, NT Results Result Diagram: 09/05/17 0559 09/05/17 0559 Results 24 hrs Laboratory Tests Test 09/05/17 05:59 White Blood Count 9.7 Red Blood Count 4.94 Hemoglobin 15.8 Hematocrit 45.6 Mean Corpuscular Volume 92.3 Mean Corpuscular Hemoglobin 32.0 Mean Corpuscular Hemoglobin Concent 34.6 Red Cell Distribution Width 12.9 Platelet Count 332 Mean Platelet Volume 9.2 Neutrophils % 52.5 Lymphocytes % 35.0 Monocytes % 7.5 Eosinophils % 3.1 Basophils % 1.3 Nucleated Red Blood Cells % 0.0 Neutrophils # 5.1 Lymphocytes # 3.4 H Monocytes # 0.7 Eosinophils # 0.3 Basophils # 0.1 Nucleated Red Blood Cells # 0.0 Sodium Level 142 Potassium Level 4.0 Chloride Level 102 Carbon Dioxide Level 28 Anion Gap 16 Blood Urea Nitrogen 12 Creatinine 0.97 Glucose Level 91 Calcium Level 9.2 Medications Medications Current Medications Ondansetron HCl (Zofran Inj) 4 mg Q6H PRN IV NAUSEA AND/OR VOMITING; Start 07/30 at 15:00 Acetaminophen (Tylenol Tab) 650 mg Q6H PRN PO PAIN LEVEL 1-3 OR FEVER Last administered on 09/03/17 21:08; Admin Dose 650 MG; Start 08/23/17 at 15:00 Acetaminophen/ Hydrocodone Bitart ([place] (5/325)) 1 tab Q6H PRN PO MODERATE PAIN LEVEL 4-6 Last administered on 08/29/17 21:58; Admin Dose 1 TAB; Start 08/23/17 at 15:00 Morphine Sulfate (morphine) 2 mg Q4H PRN IV SEVERE PAIN LEVEL 7-10 Last administered on 08/26/17 09:20; Admin Dose 2 MG; Start 08/23/17 at 15:00 Docusate Sodium (Colace) 100 mg Q12H PRN PO CONSTIPATION Last administered on 08/26/17 09:20; Admin Dose 100 MG; Start 08/23/17 at 15:00 Magnesium Hydroxide (Milk Of Mag) 30 ml DAILY PRN PO CONSTIPATION Last administered on 08/29/17 11:56; Admin Dose 30 ML; Start 08/23/17 at 15:00 Sodium Biphosphate/ Sodium Phosphate (Fleet Enema) 133 ml DAILY PRN [place] CONSTIPATION; Start 08/23/17 at 15:00 Heparin Sodium (Porcine) (Heparin (5000 Units/0.5 ml)) 5,000 unit Q12 SC Last administered on 09/05/17 08:35; Admin Dose 5,000 UNIT; Start 08/23/17 at 21: 00 Nitroglycerin 1 tab 1 tab Q5M PRN SL ANGINA; Start 08/23/17 at 15:00 Ceftriaxone Sodium (Rocephin) 50 ml @ 100 mls/hr Q24H IVPB Last administered on 09/04/17t 20:47; Admin Dose 100 MLS/HR; Start 08/31/17 at 20:00 DIVINE ELLIOTT Sep 05, 2017 12:13
[2017-09-05 14:45] VITALS: BP 104/74; RESP 16
[2017-09-05 21:11] VITALS: BP 108/62; PULSE 82; RESP 18
[2017-09-05] MEDS: CEFTRIAXONE 2 GM/50 ML (PMX) 50 ML IVPB SCH (21:13)
[2017-09-06 02:00] VITALS: BP 100/56; PULSE 87; RESP 18
[2017-09-06 06:34] LABS: BASOPHIL # 0.1 10^3/ul (0.0-0.1); BASOPHILS % 1.4 % (0.0-2.0); EOSINOPHILS # 0.3 10^3/ul (0.0-0.5); EOSINOPHILS % 2.8 % (0.0-7.0); HEMATOCRIT 45.7 % (42.0-52.0); HEMOGLOBIN 15.7 g/dl (14.0-18.0); LYMPHOCYTES % 32.2 % (15.0-51.0); MEAN CORPUSCULAR HEMOGLOBIN 31.8 pg (29.0-33.0); MEAN CORPUSCULAR HGB CONC 34.4 g/dl (32.0-37.0); MEAN CORPUSCULAR VOLUME 92.5 fl (82.0-101.0); MEAN PLATELET VOLUME 9.5 fl (7.4-10.4); MONOCYTE # 0.6 10^3/ul (0.3-0.9); MONOCYTES % 6.3 % (0.0-11.0); NEUTROPHIL # 5.4 10^3/ul (1.6-7.5); NEUTROPHILS % 56.9 % (39.0-77.0); PLATELET COUNT 321 10^3/UL (140-415); RED BLOOD COUNT 4.94 10^6/ul (4.70-6.10); RED CELL DISTRIBUTION WIDTH 12.7 % (11.5-14.5); WHITE BLOOD COUNT 9.4 10^3/ul (4.8-10.8)
[2017-09-06 07:23] LABS: CALCIUM 9.5 mg/dl (8.4-10.2); CREATININE 0.97 mg/dl (0.61-1.24); POTASSIUM 3.8 mmol/L (3.5-5.1)
[2017-09-06 07:36] VITALS: BP 99/55; RESP 18
[2017-09-06] MEDS: HEPARIN 5,000 UNIT/0.5 ML VIAL SC SCH ×2 (09:09→22:47)
--- NOTE | 2017-09-06 11:03 | PN ---
Date/Time of Note Date/Time of Note DATE: 09/06/17 TIME: 11:01 Assessment/Plan VTE Prophylaxis VTE Prophylaxis Intervention: SCD's Lines/Catheters [facility] Type [facility]from [facility] Mid Line Urinary Cath still in place: No Assessment/Plan Chief Complaint/Hosp Course ASSESSMENT AND PLAN: 32 yo M admitted for sepsis from L knee cellulitis with fluid collection. sp fluid sampling 11.15, abscess v hematoma. Fluid with PMN predominance but cell count unable to be performed. culture with group A strep, clinical significance personally unclear, given concern for continued abscess 1. Severe sepsis - again secondary to left knee cellulitis, which on admission had spread up to his left upper leg and abdomen area, now improved significantly overall. Also with L knee fluid collection sp fluid sampling 11.15, abscess (as cultures were positive for bacterial growth) slowly improving overall, but some redness and warmth present in left knee still. Evaluated by orthopedic surgery team as well. -Continue broad spectrum antibiotics, Tylenol as needed pain fevers -Appreciate ID and orthopedic recommendations. Upon discussion with infectious disease team, will recommend Rocephin 1 g IM 3 more weeks, if not this then Zyvox for 3 more weeks. Case management working on approval for either one of these antibiotics for patient. -Continue pain control medications as well. -Follow-up ID recommendations. 2. History of prior appendectomy. Monitor for now. Problems: Subjective 24 Hr Interval Summary Free Text/Dictation Patient had no acute events overnight. Exam/Review of Systems Vital Signs Vitals Vital Signs Date Time Temp Pulse Resp B/P Pulse Ox O2 Delivery O2 Flow Rate FiO2 09/06/17 07:36 97.6 65 18 99/55 98 09/06/17 02:00 Room Air Intake and Output 09/05/17 09/05/17 09/06/17 15:00 23:00 07:00 Intake Total 1790 ml 480 ml Balance 1790 ml 480 ml Exam Lying in bed, Nad Supple S1, S2 heard no mrg lungs clear abd soft l knee still swollen, NT Results Result Diagram: 09/06/17 0557 09/06/17 0557 Results 24 hrs Laboratory Tests Test 09/06/17 05:57 White Blood Count 9.4 Red Blood Count 4.94 Hemoglobin 15.7 Hematocrit 45.7 Mean Corpuscular Volume 92.5 Mean Corpuscular Hemoglobin 31.8 Mean Corpuscular Hemoglobin Concent 34.4 Red Cell Distribution Width 12.7 Platelet Count 321 Mean Platelet Volume 9.5 Neutrophils % 56.9 Lymphocytes % 32.2 Monocytes % 6.3 Eosinophils % 2.8 Basophils % 1.4 Nucleated Red Blood Cells % 0.0 Neutrophils # 5.4 Lymphocytes # 3.0 H Monocytes # 0.6 Eosinophils # 0.3 Basophils # 0.1 Nucleated Red Blood Cells # 0.0 Sodium Level 142 Potassium Level 3.8 Chloride Level 104 Carbon Dioxide Level 28 Anion Gap 14 Blood Urea Nitrogen 16 Creatinine 0.97 Glucose Level 89 Calcium Level 9.5 Medications Medications Current Medications Ondansetron HCl (Zofran Inj) 4 mg Q6H PRN IV NAUSEA AND/OR VOMITING; Start 07/30 at 15:00 Acetaminophen (Tylenol Tab) 650 mg Q6H PRN PO PAIN LEVEL 1-3 OR FEVER Last administered on 09/03/17 21:08; Admin Dose 650 MG; Start 08/23/17 at 15:00 Acetaminophen/ Hydrocodone Bitart ([place] (5/325)) 1 tab Q6H PRN PO MODERATE PAIN LEVEL 4-6 Last administered on 08/29/17 21:58; Admin Dose 1 TAB; Start 08/23/17 at 15:00 Morphine Sulfate (morphine) 2 mg Q4H PRN IV SEVERE PAIN LEVEL 7-10 Last administered on 08/26/17 09:20; Admin Dose 2 MG; Start 08/23/17 at 15:00 Docusate Sodium (Colace) 100 mg Q12H PRN PO CONSTIPATION Last administered on 08/26/17 09:20; Admin Dose 100 MG; Start 08/23/17 at 15:00 Magnesium Hydroxide (Milk Of Mag) 30 ml DAILY PRN PO CONSTIPATION Last administered on 08/29/17 11:56; Admin Dose 30 ML; Start 08/23/17 at 15:00 Sodium Biphosphate/ Sodium Phosphate (Fleet Enema) 133 ml DAILY PRN [place] CONSTIPATION; Start 08/23/17 at 15:00 Heparin Sodium (Porcine) (Heparin (5000 Units/0.5 ml)) 5,000 unit Q12 SC Last administered on 09/06/17 09:09; Admin Dose 5,000 UNIT; Start 08/23/17 at 21: 00 Nitroglycerin 1 tab 1 tab Q5M PRN SL ANGINA; Start 08/23/17 at 15:00 Ceftriaxone Sodium (Rocephin) 50 ml @ 100 mls/hr Q24H IVPB Last administered on 09/05/17t 21:13; Admin Dose 100 MLS/HR; Start 08/31/17 at 20:00 DIVINE ELLIOTT Sep 06, 2017 11:03
[2017-09-06 14:46] VITALS: BP 94/58; RESP 16
[2017-09-06 20:29] VITALS: BP 105/70; RESP 16
[2017-09-06] MEDS: CEFTRIAXONE 2 GM/50 ML (PMX) 50 ML IVPB SCH (22:08)
[2017-09-07 02:00] VITALS: BP 100/71; PULSE 62; RESP 18
[2017-09-07 06:41] LABS: BASOPHIL # 0.2 10^3/ul (0.0-0.1); BASOPHILS % 1.6 % (0.0-2.0); EOSINOPHILS # 0.3 10^3/ul (0.0-0.5); HEMATOCRIT 46.8 % (42.0-52.0); HEMOGLOBIN 16.2 g/dl (14.0-18.0); LYMPHOCYTES # 3.7 10^3/ul (0.8-2.9); LYMPHOCYTES % 34.2 % (15.0-51.0); MEAN CORPUSCULAR HGB CONC 34.6 g/dl (32.0-37.0); MEAN CORPUSCULAR VOLUME 92.5 fl (82.0-101.0); MEAN PLATELET VOLUME 9.5 fl (7.4-10.4); MONOCYTE # 0.8 10^3/ul (0.3-0.9); MONOCYTES % 7.3 % (0.0-11.0); NEUTROPHIL # 5.8 10^3/ul (1.6-7.5); NEUTROPHILS % 53.4 % (39.0-77.0); PLATELET COUNT 345 10^3/UL (140-415); RED BLOOD COUNT 5.06 10^6/ul (4.70-6.10); WHITE BLOOD COUNT 10.8 10^3/ul (4.8-10.8)
[2017-09-07 07:11] LABS: CREATININE 0.95 mg/dl (0.61-1.24); POTASSIUM 4.1 mmol/L (3.5-5.1)
[2017-09-07 07:42] VITALS: BP 102/56; RESP 20
[2017-09-07] MEDS: HEPARIN 5,000 UNIT/0.5 ML VIAL SC SCH ×2 (09:40→20:12)
--- NOTE | 2017-09-07 11:10 | PDOCDIS ---
Discharge Instructions CONDITION Patient Condition: Stable HOME CARE INSTRUCTIONS: Special Diet: regular ACTIVITY: Activity Restrictions: Slowly Increase Activity FOLLOW UP/APPOINTMENTS Follow-up Plan Please take your medications as prescribed, especially her antibiotics. Please follow-up with your doctor in the clinic in the next 1-2 weeks. DIVINE LELIOTT Sep 07, 2017 11:10
--- NOTE | 2017-09-07 11:15 | DS ---
Date/Time of Note Date/Time of Note DATE: 09/07/17 TIME: 11:11 Discharge Summary Admission/Discharge Info Admit Date/Time Aug 23, 2017 at 12:37 Discharge Date/Time Discharge Diagnosis 1. Severe sepsis - again secondary to left knee cellulitis, now improved significantly overall. 2. Left knee swelling effusion: also with L knee fluid collection sp fluid sampling 11.15, abscess (as cultures were positive for bacterial growth) slowly improving overall, but some redness and warmth present in left knee still. 3. History of prior appendectomy. Monitor for now. Patient Condition: Stable Hospital Course ASSESSMENT AND PLAN:32-year-old male with a past medical history of appendectomy, who has been having complaints of left knee swelling. He says he has also had redness symptoms as well, and also had some subjective fevers and chills at home. He had some mild shortness of breath symptoms as well. He took Motrin PM as well as Aspercreme [id number] and Icy Hot, which did not relieve the symptoms, and his symptoms were getting worse over the next 3 days. Denied any pus or drainage or bleeding from the redness site around his knee. He has noticed the redness has spread up to his upper leg now as well. He describes it is very tender to palpation. No diarrhea or constipation. No headaches or dizziness or loss of consciousness. When he came into the ER he was found with signs of severe sepsis secondary to cellulitis. He was seen by general surgery in the ER as well because there was concern for necrotizing fasciitis. However, the CT scan on this admission did not present any findings concerning for this, so he recommended just continuing wound care and antibiotics for now. So patient was admitted, seen by surgery, infectious disease teams. Also orthopedic surgery team. He continue IV antibiotics with slow improvement in his bilateral lower extremity and abdominal cellulitis, since fever subsided, his white blood cell count improved. After 6 his cellulitis improved, he still had some left knee effusion, this was aspirated and fluid was sent for culture which grew group a strep. Antibiotics were adjusted accordingly. Orthopedic surgery team for the most part agreed with infectious disease choice of antibiotics, however did state patient possibly had prepatellar bursitis versus septic arthritis in the left knee, but again vital signs are stable, no signs of sepsis at this point. Patient was able to Ifrah, tolerated p.o. diet, vital signs are stable. We are waiting for insurance approval of his antibiotics choice as he will need 3 more weeks of antibiotics until September 27, 2017. Once we get insurance approval for either Zyvox or intramuscular Rocephin, he will be discharged home with 1 of those medicines in improved condition, see below for full list of discharge medication list. Home Meds No Active Prescriptions or Reported Meds Follow-up Plan Please take your medications as prescribed, especially her antibiotics. Please follow-up with your doctor in the clinic in the next 1-2 weeks. Primary Care Provider Care Physician No Primary Time spent on discharge: > 30 minutes Pending Labs Laboratory Tests Test 09/07/17 05:32 White Blood Count 10.810^3/ul (4.8-10.8) Red Blood Count 5.0610^6/ul (4.70-6.10) Hemoglobin 16.2g/dl (14.0-18.0) Hematocrit 46.8% (42.0-52.0) Mean Corpuscular Volume 92.5fl (82.0-101.0) Mean Corpuscular Hemoglobin 32.0pg (29.0-33.0) Mean Corpuscular Hemoglobin Concent 34.6g/dl (32.0-37.0) Red Cell Distribution Width 13.0% (11.5-14.5) Platelet Count 41765^3/UL (140-415) Mean Platelet Volume 9.5fl (7.4-10.4) Neutrophils % 53.4% (39.0-77.0) Lymphocytes % 34.2% (15.0-51.0) Monocytes % 7.3% (0.0-11.0) Eosinophils % 3.0% (0.0-7.0) Basophils % 1.6% (0.0-2.0) Nucleated Red Blood Cells % 0.0/100WBC (0.0-0.0) Neutrophils # 5.810^3/ul (1.6-7.5) Lymphocytes # 3.710^3/ul (0.8-2.9) Monocytes # 0.810^3/ul (0.3-0.9) Eosinophils # 0.310^3/ul (0.0-0.5) Basophils # 0.210^3/ul (0.0-0.1) Nucleated Red Blood Cells # 0.010^3/ul (0.0-0.0) Sodium Level 143mmol/L (135-144) Potassium Level 4.1mmol/L (3.5-5.1) Chloride Level 104mmol/L (97-110) Carbon Dioxide Level 28mmol/L (21-31) Anion Gap 15 (8-16) Blood Urea Nitrogen 17mg/dl (7-20) Creatinine 0.95mg/dl (0.61-1.24) Glucose Level 90mg/dl (70-220) Calcium Level 10.0mg/dl (8.4-10.2) DIVINE ELLIOTT Sep 07, 2017 11:15
[2017-09-07 13:45] VITALS: BP 109/68; RESP 20
[2017-09-07 20:00] VITALS: BP 114/84; RESP 16
[2017-09-07] MEDS: CEFTRIAXONE 2 GM/50 ML (PMX) 50 ML IVPB SCH (20:10)
[2017-09-08 01:57] VITALS: BP 108/76; RESP 14
[2017-09-08 07:50] VITALS: BP 105/57; RESP 20
[2017-09-08] MEDS: HEPARIN 5,000 UNIT/0.5 ML VIAL SC SCH ×2 (10:37→20:33)
--- NOTE | 2017-09-08 11:15 | PN ---
Date/Time of Note Date/Time of Note DATE: 09/08/17 TIME: 11:11 Assessment/Plan VTE Prophylaxis VTE Prophylaxis Intervention: SCD's Lines/Catheters IV Catheter Type (from Nrsg): Mid Line Urinary Cath still in place: No Assessment/Plan Chief Complaint/Hosp Course S: No acute events overnight, patient stated because still waiting for approval for Zyvox which will not be known for another 24 hours as he prefers this over the intramuscular Rocephin. Less left knee pain and swelling now. O: VS (see below) PE: Lying in bed, Nad Supple S1, S2 heard no mrg lungs clear abd soft left knee much less swollen now, nontender ASSESSMENT AND PLAN: 32 yo M admitted for sepsis from L knee cellulitis with fluid collection. sp fluid sampling 11.15, abscess v hematoma. Fluid with PMN predominance but cell count unable to be performed. culture with group A strep, clinical significance personally unclear, given concern for continued abscess 1. Severe sepsis - again secondary to left knee cellulitis, which on admission had spread up to his left upper leg and abdomen area, now improved significantly overall. Also with L knee fluid collection sp fluid sampling 11.15, abscess (as cultures were positive for bacterial growth) slowly improving overall, but some redness and warmth present in left knee still. Evaluated by orthopedic surgery team as well. -Continue broad spectrum antibiotics, Tylenol as needed pain fevers -Appreciate ID and orthopedic recommendations. Upon discussion with infectious disease team, will recommend Rocephin 1 g IM 3 more weeks, if not this then Zyvox for 3 more weeks. Again patient has approval for Rocephin, but prefers p.o. Zyvox, which we will no if patient has insurance approval for this medicine in 24 hours. Once we know tomorrow he can be discharged with either 1 of these medicines he prefers until the dates mentioned above. -Continue pain control medications as well. -Follow-up ID recommendations. 2. History of prior appendectomy. Monitor for now. Problems: Exam/Review of Systems Vital Signs Vitals Vital Signs Date Time Temp Pulse Resp B/P Pulse Ox O2 Delivery O2 Flow Rate FiO2 09/08/17 07:50 98.6 72 20 105/57 100 09/07/17 02:00 Room Air Intake and Output 09/07/17 09/07/17 09/08/17 14:59 22:59 06:59 Intake Total 1490 ml 840 ml Balance 1490 ml 840 ml Results Result Diagram: 09/07/17 0532 09/07/17 0532 Medications Medications Current Medications Ondansetron HCl (Zofran Inj) 4 mg Q6H PRN IV NAUSEA AND/OR VOMITING; Start 07/30 at 15:00 Acetaminophen (Tylenol Tab) 650 mg Q6H PRN PO PAIN LEVEL 1-3 OR FEVER Last administered on 09/03/17 21:08; Admin Dose 650 MG; Start 08/23/17 at 15:00 Acetaminophen/ Hydrocodone Bitart ([place] (5/325)) 1 tab Q6H PRN PO MODERATE PAIN LEVEL 4-6 Last administered on 08/29/17 21:58; Admin Dose 1 TAB; Start 08/23/17 at 15:00 Morphine Sulfate (morphine) 2 mg Q4H PRN IV SEVERE PAIN LEVEL 7-10 Last administered on 08/26/17 09:20; Admin Dose 2 MG; Start 08/23/17 at 15:00 Docusate Sodium (Colace) 100 mg Q12H PRN PO CONSTIPATION Last administered on 08/26/17 09:20; Admin Dose 100 MG; Start 08/23/17 at 15:00 Magnesium Hydroxide (Milk Of Mag) 30 ml DAILY PRN PO CONSTIPATION Last administered on 08/29/17 11:56; Admin Dose 30 ML; Start 08/23/17 at 15:00 Sodium Biphosphate/ Sodium Phosphate (Fleet Enema) 133 ml DAILY PRN [place] CONSTIPATION; Start 08/23/17 at 15:00 Heparin Sodium (Porcine) (Heparin (5000 Units/0.5 ml)) 5,000 unit Q12 SC Last administered on 09/08/17 10:37; Admin Dose 5,000 UNIT; Start 08/23/17 at 21: 00 Nitroglycerin 1 tab 1 tab Q5M PRN SL ANGINA; Start 08/23/17 at 15:00 Ceftriaxone Sodium (Rocephin) 50 ml @ 100 mls/hr Q24H IVPB Last administered on 09/07/17 20:10; Admin Dose 100 MLS/HR; Start 08/31/17 at 20:00 DIVINE ELLIOTT Sep 08, 2017 11:15
[2017-09-08 14:09] VITALS: BP 107/68; RESP 20
[2017-09-08 20:00] VITALS: BP 101/68; PULSE 85; RESP 18
[2017-09-08] MEDS: CEFTRIAXONE 2 GM/50 ML (PMX) 50 ML IVPB SCH (20:24)
[2017-09-08] MEDS: NACL 0.9% 3 ML SYG IV SCH (20:33)
[2017-09-09 02:00] VITALS: BP 103/66; PULSE 80; RESP 18
[2017-09-09 07:38] VITALS: BP 107/61; RESP 20
[2017-09-09] MEDS: HEPARIN 5,000 UNIT/0.5 ML VIAL SC SCH ×2 (09:00→20:42)
[2017-09-09 13:49] VITALS: BP 112/63; RESP 20
--- NOTE | 2017-09-09 15:42 | PN ---
Date/Time of Note Date/Time of Note DATE: 09/09/17 TIME: 15:39 Assessment/Plan VTE Prophylaxis VTE Prophylaxis Intervention: SCD's Lines/Catheters IV Catheter Type (from Nrsg): Mid Line Urinary Cath still in place: No Assessment/Plan Assessment/Plan 32 yo M admitted for sepsis from L knee cellulitis with fluid collection. sp fluid sampling .15, abscess v hematoma. Fluid with PMN predominance but cell count unable to be performed. culture with group A strep #knee cellulitis +/- septic joint 2/2 strep: sp ortho eval, ortho advising against surgical intervention and prolonged abx instead plan is for PO zyvox v systemic ceftriaxone. waiting to see if insurance will cover zyvox will need outpatient ortho follow up stop IV pain meds, narrow to PO only pt remains hospitalized pending insurance approval of zyvoxx. if not approved, will arrange systemic Rocephin Subjective 24 Hr Interval Summary Free Text/Dictation Feels ok Exam/Review of Systems Vital Signs Vitals Vital Signs Date Time Temp Pulse Resp B/P Pulse Ox O2 Delivery O2 Flow Rate FiO2 09/09/17 13:49 97.7 76 20 112/63 98 09/09/17 02:00 Room Air Intake and Output 09/08/17 09/08/17 09/09/17 15:00 23:00 07:00 Intake Total 1970 ml 820 ml Balance 1970 ml 820 ml Exam Sitting up in bed, playing game on laptop no mrg lungs clear abd soft no rashes Results Result Diagram: 09/07/17 0532 09/07/17 0532 Medications Medications Current Medications Ondansetron HCl (Zofran Inj) 4 mg Q6H PRN IV NAUSEA AND/OR VOMITING; Start 07/30 at 15:00 Acetaminophen (Tylenol Tab) 650 mg Q6H PRN PO PAIN LEVEL 1-3 OR FEVER Last administered on 09/03/17 21:08; Admin Dose 650 MG; Start 08/23/17 at 15:00 Acetaminophen/ Hydrocodone Bitart ([place] (5/325)) 1 tab Q6H PRN PO MODERATE PAIN LEVEL 4-6 Last administered on 08/29/17 21:58; Admin Dose 1 TAB; Start 08/23/17 at 15:00 Morphine Sulfate (morphine) 2 mg Q4H PRN IV SEVERE PAIN LEVEL 7-10 Last administered on 08/26/17 09:20; Admin Dose 2 MG; Start 08/23/17 at 15:00 Docusate Sodium (Colace) 100 mg Q12H PRN PO CONSTIPATION Last administered on 08/26/17 09:20; Admin Dose 100 MG; Start 08/23/17 at 15:00 Magnesium Hydroxide (Milk Of Mag) 30 ml DAILY PRN PO CONSTIPATION Last administered on 08/29/17 11:56; Admin Dose 30 ML; Start 08/23/17 at 15:00 Sodium Biphosphate/ Sodium Phosphate (Fleet Enema) 133 ml DAILY PRN [place] CONSTIPATION; Start 08/23/17 at 15:00 Heparin Sodium (Porcine) (Heparin (5000 Units/0.5 ml)) 5,000 unit Q12 SC Last administered on 09/08/17 20:33; Admin Dose 5,000 UNIT; Start 08/23/17 at 21: 00 Nitroglycerin 1 tab 1 tab Q5M PRN SL ANGINA; Start 08/23/17 at 15:00 Ceftriaxone Sodium (Rocephin) 50 ml @ 100 mls/hr Q24H IVPB Last administered on 09/08/17 20:24; Admin Dose 100 MLS/HR; Start 08/31/17 at 20:00 MELISSA MARKS MD Sep 09, 2017 15:42
[2017-09-09 20:00] VITALS: BP 100/66; RESP 20
[2017-09-09] MEDS: CEFTRIAXONE 2 GM/50 ML (PMX) 50 ML IVPB SCH (20:42)
[2017-09-09] MEDS: NACL 0.9% 3 ML SYG IV SCH (20:42)
[2017-09-10 02:00] VITALS: BP 93/60; RESP 20
[2017-09-10 07:36] VITALS: BP 100/56; RESP 20
[2017-09-10] MEDS: HEPARIN 5,000 UNIT/0.5 ML VIAL SC SCH (09:00)
[2017-09-10] MEDS ORDERED: LINE600T6 PO (11:47)
--- NOTE | 2017-09-10 11:49 | PDOCDIS ---
Discharge Instructions DIAGNOSIS Discharge Diagnosis Sepsis 2/2 L knee cellulitis, cannot rule out septic arthritis CONDITION Patient Condition: Stable HOME CARE INSTRUCTIONS: Special Diet: REGULAR ACTIVITY: Activity Restrictions: Slowly Increase Activity FOLLOW UP/APPOINTMENTS Follow-up Plan Please call the office of the orthopedic surgeon Dr Byrne and schedule a follow up appointment with him within the next 2 weeks to follow up on your knee and make sure there is no further evidence of infection Dr Robbie Byrne Office Address [address] [place] [address] Office MELISSA MARKS MD Sep 10, 2017 11:49
--- NOTE | 2017-09-10 11:56 | DS ---
Date/Time of Note Date/Time of Note DATE: 09/10/17 TIME: 11:49 Discharge Summary Admission/Discharge Info Admit Date/Time Aug 23, 2017 at 12:37 Discharge Date/Time Discharge Diagnosis Sepsis 2/2 L knee cellulitis, cannot rule out septic arthritis Patient Condition: Stable Consults ID, orthopedic surgery, general surgery Procedures 11.10 knee XR IMPRESSION: 1. No acute fracture or dislocation. 2. Small suprapatellar effusion. 11.10 L knee US IMPRESSION: Diffuse subcutaneous edema/cellulitis throughout the visualized portion of the left knee medially. Questionable areas of focal edema versus early abscess are suboptimally evaluated but cannot be entirely excluded. Contrast-enhanced MRI or CT recommended for further evaluation. 11.[address] IMPRESSION: 1. Moderate nonspecific anterior subcutaneous soft tissue swelling, query cellulitis. 2. No CT evidence of acute fracture. 3. Physiologic joint fluid. 11.11 LE dopplers IMPRESSION: 1. No evidence of deep vein thrombosis involving either lower extremity. 11.14 L knee US IMPRESSION: Echogenic subcutaneous fluid collection anterior to the patella may represent a hematoma or abscess with adjacent hyperemia. 11.15 L knee aspiration Approximately 2 ml of sanguineous fluid was aspirated. The fluid was sent for culture and sensitivity. The patient tolerated the procedure well. Body fluid eval: insufficient cells for cell count, but 78% PMNs CULTURE FROM ASPIRATED FLUID Microbiology GRAM STAIN Final POLYMORPH. LEUKOCYTE 2+ GRAM POS COCCI IN PAIRS 1+ GRAM POS COCCI IN CHAIN 1+ BODY FLUID CULTURE Final Organism 1 STREP PYOGENES (GRP A) QUANTITY RARE S PYOG (A) Zone Size RX --------- --- * AMPICILLIN S * CEFAZOLIN S * CEFOTAXIME S * CEFUROXIME S * CIPROFLOXACIN I * CLINDAMYCIN I * ERYTHROMYCIN S * PENICILLIN S * VANCOMYCIN S Hx of Present Illness A 32-year-old male with a past medical history of appendectomy, who has been having complaints of left knee swelling. He says he has also had redness symptoms as well, and also had some subjective fevers and chills at home. He had some mild shortness of breath symptoms as well. He took Motrin PM as well as Aspercreme aqpi-rxz-hnronob and Icy Hot, which did not relieve the symptoms, and his symptoms were getting worse over the next 3 days. Denies any pus or drainage or bleeding from the redness site around his knee. He has noticed the redness has spread up to his upper leg now as well. He describes it is very tender to palpation. No diarrhea or constipation. No headaches or dizziness or loss of consciousness. When he came into the ER he was found with signs of severe sepsis secondary to cellulitis. He was seen by general surgery in the ER as well because there was concern for necrotizing fasciitis. However, the CT scan on this admission does not present any findings concerning for this, so he recommended just continuing wound care and antibiotics for now. Hospital Course 32 yo M admitted for sepsis from L knee cellulitis with fluid collection. sp fluid sampling 11.15, abscess v hematoma. Fluid with PMN predominance but cell count unable to be performed. Culture with group A strep. Pt seen by orthopedic surgery given concern for possible septic joint. Ortho advising against surgical intervention and prolonged abx instead. Pt discharged on PO Zyvoxx based on ID recs and knee aspirate culture results. ID advising 3 weeks of abx. Pt to be seen by orthopedist in 2 weeks for follow up. Home Meds Active Scripts Linezolid (Linezolid) 600 Mg Tablet, 600 MG PO BID for 21 Days, #42 TAB Prov:MELISSA MARKS MD 09/10/17 Follow-up Plan Please call the office of the orthopedic surgeon Dr Webb and schedule a follow up appointment with him within the next 2 weeks to follow up on your knee and make sure there is no further evidence of infection Dr Robbie Webb Office Address [address] [place] [id number] Office Primary Care Provider Care Physician No Primary Time spent on discharge: > 30 minutes Copies To: CC: SABRA FREEMAN MD; ROBBIE WEBB MD, ELLEN MD Sep 10, 2017 11:56
[2017-09-10 13:36] VITALS: BP 124/72; RESP 20
== END 2017-09-10 14:10 | disposition home or self-care (01) | DRG 872 ==
LOC: E/R 10:09 → TEL 12:37 → MS2 08-28 17:09
PROVIDERS: ADMIT Internal Medicine; ATTEND Internal Medicine
PROC: 0S9D3ZX Drainage of Left Knee Joint, Percutaneous Approach, Diagnostic (ICD-10-PCS; principal; 2017-08-28)
DX: A41.9 Sepsis, unspecified organism (principal); M00.9 Pyogenic arthritis, unspecified; L02.416 Cutaneous abscess of left lower limb; L03.116 Cellulitis of left lower limb; R65.20 Severe sepsis without septic shock; Z72.0 Tobacco use; M25.462 Effusion, left knee; B95.0 Streptococcus, group A, as the cause of diseases classified elsewhere; M70.42 Prepatellar bursitis, left knee
CPT/HCPCS: 36415; 71010; 73562; 73700; 76536; 80048; 80053; 80061; 80202; 81003; 83036; 83605; 83735; 84100; 84439; 84443; 84484; 85025; 85610; 85730; 86140; 87040; 87070; 87075; 87086; 89051; 89060; 90686; 93005; 93970; 96374; 96375; 97116; 97162; 97530; J0692; J1200; J1644; J2270; J2405; J2543; J3370; J7030; J7050; J7070